=== PATIENT | male | born 1930 | race Caucasian/White ===

== ENCOUNTER 2016-12-02 21:07 | Inpatient (IN) ==
--- NOTE | 2016-12-02 21:23 | Emergency Department Note ---
Disposition Clinical Impression: HCAP (healthcare-associated pneumonia), Elevated troponin, THOMPSON (acute kidney injury), Hypoxia Leukocytosis Qualifiers: Leukocytosis type: unspecified Qualified Code(s): D72.829 - Elevated white blood cell count, unspecified Disposition: Admitted As Inpatient Condition: Fair Time of Disposition: 23:29 SOB HPI - General Chief Complaint: ED Shortness of Breath/Dyspnea Stated Complaint: cough/chf Time Seen by Provider: 12/02/16 21:09 Source: patient Mode of arrival: ambulatory Limitations: no limitations Nursing Notes Reviewed: Yes Vital Signs Reviewed: Yes - History of Present Illness Patient is an 86-year-old male with past medical history of CHF, CK-MB, diabetes , hyperlipidemia, hypertension. He presents today due to hypoxia, fever, rigors , recent weight gain. Patient's ability woke up this morning and has been short of breath ever since. He has noticed a mild increase in his abdominal girth but no increased swelling in his lower extremities. He has also noted some coughing today as well. He said that he started shaking uncontrollably this morning was noted to have a fever. Denies any nausea, vomiting, abdominal pain, diarrhea, chest pain. He does not wear any oxygen at long term but has been having to wear one to 2 L of nasal cannula oxygen to maintain saturation above 88-89. On presentation, patient was satting 88-89% on room air. - Related Data Home Medications Medication Instructions Recorded Confirmed Clobetasol Propionate 0.05% 1 appl TP BID 03/15/16 04/12/16 [Temovate] Furosemide [Lasix] 40 mg PO BID 03/15/16 04/12/16 Gabapentin [Neurontin] 100 mg PO TID 03/15/16 04/12/16 GlipiZIDE [Glucotrol] 2.5 mg PO BIDWM 03/15/16 04/12/16 Isosorbide MONOnitrate (24 HR) 30 mg PO DAILY 03/15/16 04/12/16 [Imdur] Lanolin/Mineral Oil [Eucerin 1 appl TP DAILY 03/15/16 04/12/16 Original Lotion] Levothyroxine [Synthroid] 25 mcg PO QAM 03/15/16 04/12/16 Lisinopril [Zestril] 40 mg PO DAILY 03/15/16 04/12/16 Minocycline HCl [Minocin] 100 mg PO BID 03/15/16 04/12/16 NIFEdipine [Nifedical Xl] 60 mg PO DAILY 03/15/16 04/12/16 Omeprazole [PriLOSEC] 20 mg PO BIDAC 03/15/16 04/12/16 PredniSONE 15 mg PO DAILY 03/15/16 04/12/16 Simvastatin [Zocor] 20 mg PO HS 03/15/16 04/12/16 Previous Rx's Medication Instructions Recorded Oxycodone HCl/Acetaminophen 1 each PO Q6HR PRN #28 tablet 03/18/16 [Percocet 10-325 mg Tablet] Acetaminophen [Tylenol] 650 mg PO Q6HR PRN #0 tablet 04/15/16 Atenolol [Tenormin] 50 mg PO HS #0 04/15/16 Ciprofloxacin [Cipro] 500 mg PO BID 14 Days 04/15/16 Tamsulosin [Flomax] 0.4 mg PO HS capsule 04/15/16 Allergies Allergy/AdvReac Type Severity Reaction Status Date / Time hydrochlorothiazide Allergy See Verified 04/12/16 11:33 Comments Constitutional: Reports: fever Eyes: Denies: eye pain ENT ED: Denies: ear pain Cardiovascular: Denies: chest pain, palpitations Respiratory: Reports: cough, dyspnea Gastrointestinal: Denies: abdominal pain, nausea, vomiting, diarrhea Genitourinary: Denies: urgency, dysuria Musculoskeletal: Denies: back pain Integumentary: Denies: rash Neurological: Denies: headache, weakness Past Medical History - Past Medical History Attestation: Yes The following information was validated with the patient. Medical history: Reports: CHF, coronary artery disease, diabetes, hyperlipidemia , hypertension, myocardial infarction, renal disease, thyroid disease, other Psychiatric history: Reports: no psych history - Social History Smoking Status: Former smoker Smokeless Tobacco Status: No Alcohol use: Reports: occasionally Drug use: Reports: none Physical Exam - General Limitations: no limitations General appearance: alert, in no apparent distress - Head Head exam: atraumatic, normocephalic, normal inspection - Eye Eye exam: Present: normal appearance, PERRL, EOMI - ENT ENT exam: normal exam, normal oropharynx, mucous membranes moist - Neck Neck exam: Present: normal inspection, full ROM, trachea midline - Chest Chest inspection: Present: normal inspection, symmetric chest wall rise - Respiratory Respiratory exam: Present: other (Decreased aeration and bilateral lower lobes. No major wheezes or crackles appreciated.) - Cardiovascular Cardiovascular exam: Present: regular rate, normal rhythm, normal heart sounds - Abdominal Exam Abdominal exam: Present: soft, Non-Tender, distention. Absent: tenderness, guarding, rebound, rigidity - Extremities Exam Extremities exam: Present: normal inspection, full ROM. Absent: tenderness, pedal edema - Back Exam Back exam: Present: normal inspection, full ROM. Absent: tenderness - Neurological Exam Neurological exam: Present: alert, oriented X3 - Psychiatric Psychiatric exam: Present: normal affect, normal mood - Skin Skin exam: Present: warm, dry, intact, normal color Course Course Narrative: Temp was 9.7 on presentation, oxygen saturation was 88-89% on room air. Currently satting 96% on 1-2 L of nasal cannula oxygen. Physical exam shows abdominal distention, decreased aeration and bilateral lower lobes. Otherwise no overt wheezes or crackles appreciated. No significant pedal edema present. We will obtain cardiac workup including EKG, chest x-ray, basic blood work. Due to fever, rigors, decreased aeration, and pneumonia is on the differential. Also CHF exacerbation is a possibility. 23:12 patient had leukocytosis, THOMPSON, elevated troponin at 0.11 and given aspirin 325 mg, chest x-ray was negative for pneumonia however patient has decreased aeration, cough and documented fever 101 from outside facility. Clinically has pneumonia. Patient oxygen saturation continues to drop to 88% when taken off nasal cannula oxygen. Will admit for clinical pneumonia, a KI, elevated troponin, hypoxia. We will start IV antibiotics for HCAP here and plan to admit. Vital Signs Temperature 99.7 F H 12/02/16 21:16 Pulse Rate 78 12/02/16 21:16 Respiratory Rate 18 12/02/16 21:16 Blood Pressure 128/61 12/02/16 21:16 O2 Sat by Pulse Oximetry 93 L 12/02/16 21:16 Temperature 99.7 F H 12/02/16 21:16 Pulse Rate 80 12/02/16 22:31 Respiratory Rate 18 12/02/16 22:31 Blood Pressure 143/60 12/02/16 22:31 O2 Sat by Pulse Oximetry 97 12/02/16 22:31 Oxygen Delivery Oxygen Delivery Nasal Cannula Shortness of Breath/Dyspnea - [facility] Narrative Medical decision making narrative: Temp was 9.7 on presentation, oxygen saturation was 88-89% on room air. Currently satting 96% on 1-2 L of nasal cannula oxygen. Physical exam shows abdominal distention, decreased aeration and bilateral lower lobes. Otherwise no overt wheezes or crackles appreciated. No significant pedal edema present. We will obtain cardiac workup including EKG, chest x-ray, basic blood work. Due to fever, rigors, decreased aeration, and pneumonia is on the differential. Also CHF exacerbation is a possibility. 23:12 patient had leukocytosis, THOMPSON, elevated troponin at 0.11 and given aspirin 325 mg, chest x-ray was negative for pneumonia however patient has decreased aeration, cough and documented fever 101 from outside facility. Clinically has pneumonia. Patient oxygen saturation continues to drop to 88% when taken off nasal cannula oxygen. Will admit for clinical pneumonia, a KI, elevated troponin, hypoxia. We will start IV antibiotics for HCAP here and plan to admit. - Medical Records Medical records reviewed: Yes I reviewed the patient's medical records. - Lab Data Lab results reviewed: Yes I reviewed the patient's lab results. Result diagrams: 12/02/16 21:31 12/02/16 21:31 Lab Results 12/02/16 12/02/16 12/02/16 Range/Units 21:31 21:31 21:31 WBC 16.8 H (4.3-11.1) K/mcL RBC 3.64 L (4.19-5.50) M/mcL Hgb 11.6 L (12.9-16.9) g/dL Hct 37.1 L (37.5-50.1) % MCV 101.9 H (83.0-100.0) fL MCH 31.9 (28.0-33.3) pg MCHC 31.3 L (31.6-35.5) g/dL RDW 13.3 (11.5-14.5) % Plt Count 185 (140-400) K/mcL MPV 10.1 (9.4-12.4) fL Immature Gran % 0.6 (0-4) % Seg Neutrophils % 89.2 % Lymphocytes % 4.3 % Monocytes % 5.5 % Eosinophils % 0.3 % Basophils % 0.1 % Neutrophils # 15.0 H (1.6-8.9) K/mcL Lymphocytes # 0.7 (0.6-4.6) K/mcL Monocytes # 0.9 (0.0-1.3) K/mcL Eosinophils # 0.1 (0.0-0.6) K/mcL Basophils # 0.0 (0.0-0.2) K/mcL Sodium 143 (136-145) mEq/L Potassium 4.1 (3.5-4.5) mEq/L Chloride 103 (98-109) mEq/L Carbon Dioxide 32 H (19-29) mEq/L BUN 38 H (8-26) mg/dL Creatinine 1.53 H (0.72-1.25) mg/dL Est GFR ( Amer) 52 L (> 60) Est GFR (Non-Af Amer) 43 L (> 60) BUN/Creatinine Ratio 25 (6-26) Glucose 89 (70-99) mg/dL Calculated Osmolality 305 H (280-300) Calcium 8.8 (8.6-10.8) mg/dL Troponin I 0.11 H* (0-0.03) ng/mL B-Natriuretic Peptide (0-100) pg/mL 12/02/16 Range/Units 21:31 WBC (4.3-11.1) K/mcL RBC (4.19-5.50) M/mcL Hgb (12.9-16.9) g/dL Hct (37.5-50.1) % MCV (83.0-100.0) fL MCH (28.0-33.3) pg MCHC (31.6-35.5) g/dL RDW (11.5-14.5) % Plt Count (140-400) K/mcL MPV (9.4-12.4) fL Immature Gran % (0-4) % Seg Neutrophils % % Lymphocytes % % Monocytes % % Eosinophils % % Basophils % % Neutrophils # (1.6-8.9) K/mcL Lymphocytes # (0.6-4.6) K/mcL Monocytes # (0.0-1.3) K/mcL Eosinophils # (0.0-0.6) K/mcL Basophils # (0.0-0.2) K/mcL Sodium (136-145) mEq/L Potassium (3.5-4.5) mEq/L Chloride (98-109) mEq/L Carbon Dioxide (19-29) mEq/L BUN (8-26) mg/dL Creatinine (0.72-1.25) mg/dL Est GFR ( Amer) (> 60) Est GFR (Non-Af Amer) (> 60) BUN/Creatinine Ratio (6-26) Glucose (70-99) mg/dL Calculated Osmolality (280-300) Calcium (8.6-10.8) mg/dL Troponin I (0-0.03) ng/mL B-Natriuretic Peptide 305 H (0-100) pg/mL - Radiology Data Radiology results reviewed: Yes I reviewed the patient's radiology results. Chest X-Ray 12/02/16 21:23 IMPRESSION: 1. Enlarged cardiac silhouette with mild prominence of the pulmonary vasculature. 2. Elevation of the left hemidiaphragm with bibasilar atelectasis. D/ / Shashank Wood MD / Shashank Wood MD Interpreting Provider: Shashank Wood MD - EKG Data EKG attestation: Yes I reviewed and interpreted this EKG. EKG results narrative: 12/02/2016 at 21:37. Normal sinus rhythm. Rate 76. ID interval 199. QRS 110. QTC 397. Left axis deviation. Q waves present in aVR, V1, V2 that are present on old EKG. Otherwise, no acute ST elevation or depression. No acute changes from his EKG on 04/12/2016 S.B.A.RThony - S.B.A.R. Situation: Demographics, MOA Background: Presenting Complaint, Relevant PMH, Meds, & Allergies Assessment: Vital Signs, Course and respsone to treatment, Exam Concerns, Patient/Family Expectation, Pertinant Lab Results, Outstanding Labs Recommendation: Barrier(s) to disposition, Recommendation based on pending studies, treatments, or consults S.B.ACourtney Report Given to: Dr. Luis E Harris Repor Time: 23:29 Attestation Statement - Attestation Attestation: I, Biju Hines MD, personally performed a history and physical exam of the patient and discussed their management with the resident. I reviewed the resident's note and agree with the documented findings, medical decision making , and plan of care. 86-year-old male presents to the emergency department from an assisted living facility for complaint of a frequent nonproductive cough today with some mild shortness of breath. No chest pain. This evening prior to arrival he had a rigor with shaking chills that lasted 15 or 20 minutes. He has not noticed any fever. He is not normally on oxygen but was placed on oxygen at the assisted living facility because his oxygen saturation was low. He does have a history of CHF. No increased swelling of his feet and ankles. On examination patient is a well-developed obese elderly male in no acute distress. He is alert and oriented 3. There is no cyanosis or diaphoresis. Chest is nontender to palpation. Breath sounds are clear and equal bilaterally with no rales or wheezes noted. Heart regular rate and rhythm. Abdomen soft and nontender with normal bowel sounds. 2+ pitting edema of the lower extremities bilaterally. No acute changes on EKG. Some cardiomegaly and pulmonary vascular congestion on chest x-ray but no acute infiltrate noted. Labs reviewed. Patient does have a leukocytosis with WBC of 16.8 with 89% segs. Troponin also noted to be elevated at 0.11. In light of patient's cough and fever and leukocytosis I think clinically the patient has pneumonia although nothing is showing up on his chest x-ray at this time. The hospitalist, Dr. Kimbrough, was consulted and accepted admission of the patient.
[2016-12-02 21:40] LABS: Basophils % 0.1 %; Eosinophils # 0.1 K/mcL (0.0-0.6); Eosinophils % 0.3 %; Hematocrit 37.1 % (37.5-50.1); Hemoglobin 11.6 g/dL (12.9-16.9); Immature Granulocytes % 0.6 % (0-4); Lymphocytes # 0.7 K/mcL (0.6-4.6); Lymphocytes % 4.3 %; Mean Corpuscular HGB Conc 31.3 g/dL (31.6-35.5); Mean Corpuscular Hemoglobin 31.9 pg (28.0-33.3); Mean Corpuscular Volume 101.9 fL (83.0-100.0); Mean Platelet Volume 10.1 fL (9.4-12.4); Monocytes # 0.9 K/mcL (0.0-1.3); Monocytes % 5.5 %; Platelet Count 185 K/mcL (140-400); Red Blood Count 3.64 M/mcL (4.19-5.50); Red Cell Distribution Width 13.3 % (11.5-14.5); Segmented Neutrophils % 89.2 %
[2016-12-02 21:53] LABS: Calcium 8.8 mg/dL (8.6-10.8); Potassium 4.1 mEq/L (3.5-4.5)
[2016-12-02] MEDS ORDERED: Aspirin 325 MG TABLET PO ONE (22:20)
[2016-12-02] MEDS ORDERED: Levofloxacin 750 MG/150 ML 750 MG/150 ML BAG IVPB ONE (23:15)
[2016-12-02] MEDS ORDERED: Piperacillin/Tazobactam 3.375 GM in D5% in Water (Mini-Bag+) 100 ML IVPB ONE (23:15)
[2016-12-02] MEDS ORDERED: Vancomycin 1,500 MG in D5% in Water 250 ML IVPB SCH (23:45)
[2016-12-03] MEDS ORDERED: Vancomycin 2,000 MG in D5% in Water 500 ML IVPB SCH (00:01)
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
[2016-12-03] MEDS ORDERED: Ondansetron ODT 4 MG TAB.RAPDIS SL PRN (02:14)
[2016-12-03] MEDS ORDERED: D5% in Water 1,000 ML IV PRN (02:14)
[2016-12-03] MEDS ORDERED: *HR* Dextrose 50 % in Water (Syg) 50 ML SYRINGE IVP PRN (02:14)
[2016-12-03] MEDS ORDERED: Acetaminophen 325 MG TABLET PO PRN (02:14)
[2016-12-03] MEDS ORDERED: Naloxone 0.4 MG/ML INJ IVP PRN (02:14)
[2016-12-03] MEDS ORDERED: Dextrose Gel 15 GM PO PRN ×2 (02:14)
[2016-12-03 05:59] LABS: Basophils % 0.1 %; Eosinophils # 0.1 K/mcL (0.0-0.6); Eosinophils % 0.3 %; Hemoglobin 10.9 g/dL (12.9-16.9); Immature Granulocytes % 0.7 % (0-4); Lymphocytes # 0.9 K/mcL (0.6-4.6); Lymphocytes % 5.4 %; Mean Corpuscular HGB Conc 31.1 g/dL (31.6-35.5); Mean Corpuscular Hemoglobin 31.9 pg (28.0-33.3); Mean Corpuscular Volume 102.3 fL (83.0-100.0); Mean Platelet Volume 10.4 fL (9.4-12.4); Monocytes # 0.9 K/mcL (0.0-1.3); Monocytes % 5.4 %; Neutrophils # 14.5 K/mcL (1.6-8.9); Platelet Count 184 K/mcL (140-400); Red Blood Count 3.42 M/mcL (4.19-5.50); Red Cell Distribution Width 13.3 % (11.5-14.5); Segmented Neutrophils % 88.1 %
[2016-12-03 06:03] LABS: Albumin 2.3 g/dL (3.5-5.0); Albumin/Globulin Ratio 0.7 (1.1-2.2); Bilirubin,Total 0.5 mg/dL (0.2-1.2); Calcium 8.1 mg/dL (8.6-10.8); Globulin 3.4 g/dL (2.4-3.5); Phosphorous 4.1 mg/dL (2.3-4.7); Potassium 4.6 mEq/L (3.5-4.5); Total Protein 5.7 g/dL (6.0-8.3)
[2016-12-03] MEDS: *HR* Heparin 5,000 UNIT/ML VIAL SQ SCH ×3 (06:29→21:00)
[2016-12-03] MEDS: *HR* OxyCODONE ER (12 HR) 10 MG TABLET PO SCH ×2 (06:30→17:54)
[2016-12-03 06:52] LABS: Platelet Estimate Normal (Normal)
[2016-12-03] MEDS: Insulin LISPRO 300 UNITS/3 ML VIAL SQ SCH ×3 (07:31→17:51)
[2016-12-03 08:45] LABS: Bilirubin,Urine Negative (Negative); Blood,Urine Negative (Negative); Clarity,Urine Clear (Clear); Color,Urine Yellow (Yellow); Glucose,Urine (UA) Normal (Normal); Ketones,Urine Negative (Negative); Leukocyte Esterase,Urine Small (Negative); Nitrite,Urine Negative (Negative); Protein,Urine Trace mg/dL (Neg-Trace); Specific Gravity,Urine 1.021 (1.010-1.025); Urobilinogen,Urine Normal (Normal)
[2016-12-03 08:47] LABS: Bacteria,Urine None Seen per hpf (None-Few); Hyaline Casts,Urine None Seen per lpf (None-Few); RBC,Urine 0-3 per hpf (0-3); Squamous Epithelial Cell,Urine Many per lpf (None-Few)
[2016-12-03] MEDS: Aspirin Enteric Coated 81 MG Tablet PO SCH (08:59)
[2016-12-03] MEDS: Hydrocortisone Sodium Succ 100 MG/2 ML VIAL IVP SCH ×3 (08:59→23:24)
[2016-12-03] MEDS ORDERED: Levofloxacin 750 MG/150 ML 750 MG/150 ML BAG IVPB SCH (09:00)
[2016-12-03] MEDS: Isosorbide MONOnitrate (24 HR) 30 MG TAB.ER.24H PO SCH (12:26)
[2016-12-03] MEDS: Gabapentin 100 MG CAPSULE PO SCH ×3 (12:26→21:00)
--- NOTE | 2016-12-03 16:31 | Internal Med Progress Note ---
<[place] Card - Last Filed: 12/03/16 16:19> Date of Encounter: 12/03/16 Time of Encounter: 09:30 - Assessment and plan (1) Pneumonia Current Visit: Yes Status: Acute Assessment and plan: Mr. Baldwin 86-year-old male from nursing facility admitted with cough, yellow sputum production and hypoxia requiring nasal cannula oxygen. Currently in stable condition. Plan: -Continue Levaquin daily - Continue albuterol inhaler when necessary - Patient on chronic steroids at home provide Solu-Cortef 100 mg IV every 8 hours - Omeprazole 20 mg by mouth daily Qualifiers: Pneumonia type: due to unspecified organism Laterality: unspecified laterality Lung location: unspecified part of lung Qualified Code(s): J18.9 - Pneumonia, unspecified organism (2) Non-insulin dependent type 2 diabetes mellitus Current Visit: No Status: Chronic Assessment and plan: Type II diabetic [place] is controlled. Suspect elevation in glucose level after high-dose steroids provided. Plan: -Medium dose insulin sliding scale. - ACHS glucose checks (3) Aortic stenosis Current Visit: Yes Status: Suspected Assessment and plan: History of aortic stenosis. Echocardiogram from April 2016 demonstrates LVEF of 60%, normal left ventricular chamber size and wall thickness and function. Mild left ventricular diastolic dysfunction. Mild right ventricular structure and function. Mild mitral annular calcification. Mild thickened mitral valve leaflets. Trace mitral regurgitation. No mitral stenosis. Tricuspid valve normal valve structure, tricuspid valve regurgitation. Borderline pulmonary hypertension. Aortic valve was poorly visualized demonstrate non-coronary cusp appearance moderately calcified Patient is on 60 mg Lasix by mouth twice a day at home. Plan: -Lasix 20 mg IV twice a day. Qualifiers: Cardiac valve disease etiology: nonrheumatic Qualified Code(s): I35.0 - Nonrheumatic aortic (valve) stenosis (4) Pemphigus Current Visit: No Status: Chronic Assessment and plan: Patient usually on 20 mg prednisone daily, he has been on this for years due to his pemphigus, recently started on 40 mg daily for about 2 weeks. - On Solu-Cortef 100 mg every 8 hours (5) Troponin level elevated Current Visit: No Status: Acute Assessment and plan: Slight elevation in troponins, patient is asymptomatic, no significant correlation with EKG. Likely secondary to hypoxia superimposed on diastolic heart failure. Plan: -Continue monitoring patient symptoms. (6) THOMPSON (acute kidney injury) Current Visit: Yes Status: Acute Assessment and plan: Acute kidney injury with admitting creatinine 1.53. Baseline appears to be roughly 1.10. Patient is clinically fluid overloaded, will reduce diuresis to decrease strain on kidneys. Plan: - Start low-dose Lasix 20 mg IV twice a day - Renally dose antibiotics and avoid nephrotoxic medications - Monitor renal function with a.m. labs. (7) DVT prophylaxis Current Visit: No Status: Acute Assessment and plan: Subcutaneous heparin 5000 units every 8 hours. - Subjective Interval history: Mr. Baldwin is seen of the patient bedside this morning. He said that he feels fine and denies any other concerns at this time. He said that he was transferred to [facility] because the nurse was concerned about him. He does admit to yellow sputum production with cough. He denies any fevers, chills, sweating, shortness of breath. He has no further concerns. - Constitutional Vitals: Temp Pulse Resp BP Pulse Ox 98.5 F 67 15 132/62 100 12/03/16 15:49 12/03/16 15:49 12/03/16 15:49 12/03/16 15:49 12/03/16 15:49 General appearance: Present: cooperative, mild distress, A&O X 3, pleasant - Head Head exam: Present: atraumatic, normocephalic - Eye Eye exam: Present: PERRL, conjuntiva pink, sclera anicteric Pupils: Present: PERRL - Neck Neck exam general surgery: Present: supple, trachea midline. Absent: lymphadenopathy - Respiratory Respiratory exam: Present: rhonchi (Rhonchi appreciated in the lower left lung base. Clear to auscultation and morgan.). Absent: accessory muscle use, rales , wheezes - Cardiovascular Cardiovascular exam: Present: RRR, +S1, +S2. Absent: diastolic murmur, gallop, rubs, systolic murmur - GI/Abdominal GI/Abdominal exam: Present: normal bowel sounds, soft, no peritoneal signs. Absent: distended, tenderness - Extremities Exam Extremities exam: Present: pedal edema (2+ pitting edema bilateral lower extremities more so on the right), warm, radial pulses palpable and symetrical. Absent: calf tenderness, cyanotic - Neurological Exam Neurological exam: Present: alert, CN II-XII intact, oriented X3, no focal deficits. Absent: pronater drift, facial droop, speech deficit Internal Medicine: Result - Labs CBC & Chem 7: 12/03/16 05:25 12/03/16 05:25 Labs: Urine 12/03/16 Range/Units 08:05 Urine Color Yellow (Yellow) Urine Clarity Clear (Clear) Urine pH 6.0 (5.0-8.0) pH Units Ur Specific [place] 1.021 (1.010-1.025) Urine Protein Trace (Neg-Trace) mg/dL Urine Glucose (UA) Normal (Normal) mg/dL - VTE Documentation of Mechanical Device: Graduated compression elastic hosiery Consult Discharge Plan - Plan [facility]errals: [facility] [Primary Care Provider] - <Ganesh Headley - Last Filed: 12/03/16 18:57> - Constitutional Vitals: Temp Pulse Resp BP Pulse Ox 98.5 F 67 15 132/62 100 12/03/16 15:49 12/03/16 15:49 12/03/16 15:49 12/03/16 15:49 12/03/16 15:49 Internal Medicine: Result - Labs CBC & Chem 7: 12/03/16 05:25 12/03/16 05:25 Labs: Urine 12/03/16 Range/Units 08:05 Urine Color Yellow (Yellow) Urine Clarity Clear (Clear) Urine pH 6.0 (5.0-8.0) pH Units Ur Specific [place] 1.021 (1.010-1.025) Urine Protein Trace (Neg-Trace) mg/dL Urine Glucose (UA) Normal (Normal) mg/dL - Attending Attestation Pt admitted earlier this morning for acute exac CHF (presumed). He is beginning to feel somewhat better. Exam Alert. Comfortable Heart reg Plan As above. Continue admission plan.
--- NOTE | 2016-12-03 16:40 | Electrocardiograph Report ---
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
[2016-12-03] MEDS: Furosemide 20 MG/2 ML VIAL IVP SCH (17:53)
--- NOTE | 2016-12-03 18:01 | ECHO - Doppler Report ---
Limited Echocardiogram Name: Daniel Baldwin Date of Study: 12/03/2016 Date: 1930 Ht: Medical Record#: [id number] Age: 86 Wt: Gender: Male BSA: Order #: [id number] Location: [facility] Room #: 2A36 Reading Physician: Jaime Rodriguez DO, FACC, FASE, FASNC Air Plant Engineer: Radha Palacios RDCS Ordering Physician: Enrique Kimbrough MD Primary Physician: [facility] Indications: Aortic stenosis Impressions: Aortic valve not well visualized. Grossly, it appears calcified. Doppler evaluation performed and no significant gradients obtained. However, the image quality is very poor. The study is largely non-diagnostic regarding possible presence of aortic stenosis. Consider ASHOK to further evaluate AV if clinically indicated. History 05/13/2016 a Previous Echo was performed. Measurements: BP: 132/ 62 2D Normal Values LVOT Diam: 1.90 cm LA volume: LVOT Peak Geo:1.10 m/sec Mean Geo:.78 m/sec Peak Grad:5.00 mmHg Mean Grad:3.00 mmHg Aortic Valve Peak Geo:1.28 m/sec Mean Geo:.92 m/sec Peak Grad:7.00 mmHg Mean Grad:4.00 mmHg Valve Area:2.55 cm2 Updated by Jaime Rodriguez DO, FACC, FASE, FASNC on 12/03/2016 5:53:55 PM electronically signed on 12/03/2016 5:55:47 PM with status of Final
[2016-12-03] MEDS ORDERED: Furosemide 20 MG/2 ML VIAL IVP SCH (21:00)
[2016-12-03] MEDS ORDERED: Insulin LISPRO 300 UNITS/3 ML VIAL SQ SCH (21:00)
[2016-12-04] MEDS: *HR* OxyCODONE ER (12 HR) 10 MG TABLET PO SCH (05:52)
[2016-12-04] MEDS: *HR* Heparin 5,000 UNIT/ML VIAL SQ SCH (05:52)
[2016-12-04 07:26] LABS: Basophils % 0.1 %; Eosinophils % 0.2 %; Hematocrit 34.2 % (37.5-50.1); Hemoglobin 10.9 g/dL (12.9-16.9); Lymphocytes # 0.6 K/mcL (0.6-4.6); Lymphocytes % 4.7 %; Mean Corpuscular HGB Conc 31.9 g/dL (31.6-35.5); Mean Corpuscular Hemoglobin 32.6 pg (28.0-33.3); Mean Corpuscular Volume 102.4 fL (83.0-100.0); Mean Platelet Volume 10.4 fL (9.4-12.4); Monocytes # 0.5 K/mcL (0.0-1.3); Monocytes % 4.2 %; Neutrophils # 11.2 K/mcL (1.6-8.9); Platelet Count 170 K/mcL (140-400); Red Blood Count 3.34 M/mcL (4.19-5.50); Red Cell Distribution Width 12.9 % (11.5-14.5); Segmented Neutrophils % 89.8 %
[2016-12-04 07:37] LABS: BUN/Creatinine Ratio 25 (6-26); Blood Urea Nitrogen 34 mg/dL (8-26); Calcium 8.8 mg/dL (8.6-10.8); Carbon Dioxide 30 mEq/L (19-29); Chloride 103 mEq/L (98-109); Glucose 136 mg/dL (70-99); Osmolality,Calculated 302 (280-300); Potassium 4.4 mEq/L (3.5-4.5); Sodium 141 mEq/L (136-145); eGFR For African Americans > 60 (> 60); eGFR For Non-African Americans 50 (> 60)
[2016-12-04] MEDS: Insulin LISPRO 300 UNITS/3 ML VIAL SQ SCH ×2 (08:40→11:57)
[2016-12-04] MEDS: Gabapentin 100 MG CAPSULE PO SCH (08:41)
[2016-12-04] MEDS: Hydrocortisone Sodium Succ 100 MG/2 ML VIAL IVP SCH (08:41)
[2016-12-04] MEDS: Furosemide 20 MG/2 ML VIAL IVP SCH (08:41)
[2016-12-04] MEDS: Isosorbide MONOnitrate (24 HR) 30 MG TAB.ER.24H PO SCH (08:41)
[2016-12-04] MEDS: Aspirin Enteric Coated 81 MG Tablet PO SCH (08:41)
--- NOTE | 2016-12-04 09:13 | Discharge Summary ---
<[place] Card - Last Filed: 12/04/16 09:26> Date of Encounter: 12/04/16 Time of Encounter: 09:08 - Discharge Diagnosis (1) Pneumonia Priority: Primary Status: Acute Qualifiers: Pneumonia type: due to unspecified organism Laterality: unspecified laterality Lung location: unspecified part of lung Qualified Code(s): J18.9 - Pneumonia, unspecified organism (2) Non-insulin dependent type 2 diabetes mellitus Priority: Secondary Status: Chronic (3) Aortic stenosis Priority: Secondary Status: Suspected Qualifiers: Cardiac valve disease etiology: nonrheumatic Qualified Code(s): I35.0 - Nonrheumatic aortic (valve) stenosis (4) Pemphigus Priority: Secondary Status: Chronic (5) Troponin level elevated Priority: Secondary Status: Acute (6) THOMPSON (acute kidney injury) Priority: Primary Status: Acute (7) DVT prophylaxis Priority: Secondary Status: Acute - Discharge Medications Prescriptions: Levofloxacin [Levaquin] 750 mg PO Q48H #3 tablet PredniSONE 40 mg PO DAILY #6 tablet Home Medications: Gabapentin [Neurontin] 100 mg PO TID 03/15/16 [History] GlipiZIDE [Glucotrol] 2.5 mg PO BIDWM 03/15/16 [History] Isosorbide MONOnitrate (24 HR) [Imdur] 30 mg PO DAILY 03/15/16 [History] Levothyroxine [Synthroid] 50 mcg PO QAM 03/15/16 [History] Lisinopril [Zestril] 20 mg PO DAILY 03/15/16 [History] Omeprazole [PriLOSEC] 20 mg PO BIDAC 03/15/16 [History] Simvastatin [Zocor] 20 mg PO HS 03/15/16 [History] Atenolol [Tenormin] 50 mg PO HS #0 04/15/16 [Rx] Tamsulosin [Flomax] 0.4 mg PO HS capsule 04/15/16 [Rx] Acetaminophen [Tylenol] 975 mg PO TID PRN 12/03/16 [History] Ferrous Gluconate 324 mg PO DAILY 12/03/16 [History] Magnesium Oxide [Magnesium] 400 mg PO DAILY 12/03/16 [History] Multivitamin [Multivitamins] 1 tab PO DAILY 12/03/16 [History] OxyCODONE ER (12 HR) [OxyCONTIN] 10 mg PO Q12HR 12/03/16 [History] Polyethylene Glycol 3350 [Smoothlax] 17 gm PO BID PRN 12/03/16 [History] Furosemide [Lasix] 40 mg PO BIDWM #0 12/04/16 [Rx] Levofloxacin [Levaquin] 750 mg PO Q48H #3 tablet 12/04/16 [Rx] PredniSONE 20 mg PO DAILY #0 12/04/16 [Rx] PredniSONE 40 mg PO DAILY #6 tablet 12/04/16 [Rx] Allergies/Adverse Reactions: Allergies hydrochlorothiazide Allergy (Verified 04/12/16 11:33) See Comments Date of admission: 12/03/16 06:34 [facility]: [facility] Consults: 12/03/16 11:09 Consult to Physical Therapy [CONS] Routine Comment: Evaluate, develop and implement POC OT [Consult to Occupational Therapy] [CONS] Routine Comment: Evaluate, develop and implement POC Discharging clinician: [place] Card Anticipated date of discharge: 12/04/16 - Patient Status Disposition: Transfer SNF Condition: Fair Overall status at discharge: patient is progressing back to baseline - Discharge Instructions Instructions: Chronic Hypertension (DC), Pneumonia (DC) Follow Up With: [facility] [Primary Care Provider] - Additional Instructions: I recommended follow-up with her primary care physician in 3 to 5 days Take medications as prescribed - Diet and Activity Activity: increase activity as tolerated Diet: diabetic diet, low salt diet Interval History: Mr. Baldwin is a 86 year old male with medical history significant for CHF (last echo 05/04 showed EF 60% and mild diastolic dysfunction), pemphigus, non-insulin dependent diabetes, htn, and hld who reports having increased shortness of breath and cough for several days and shakes prior to admission to [facility]. He was admitted to the general medical floor and placed on telemetry, chest x-ray was negative for signs pneumonia but clinically pneumonia was present. He also is found to have slightly elevated troponins between 0.11 and 0.14 likely secondary to hypoxia, patient was without chest pain, radiation of discomforts. He was treated with monotherapy Levaquin and UA blood cultures and influenza swab were obtained which were all negative. Patient has known aortic stenosis with last echocardiogram May 04 show potential moderate aortic stenosis and is concerned this may be contributing to his acute kidney injury in the setting of diuresis. Limited echo completed inpatient at poor quality and only demonstrated calcification of aortic valves. Follow-up outpatient is recommended. During inpatient stay Mr. Baldwin demonstrated clinical improvement with reduced oxygen requirements, resolution of colored sputum production and shortness of breath. During his inpatient stay he was started on Solu-Cortef 100 mg every 8 hours and at the time of discharge he was started on by mouth prednisone 40 mg daily for 3 days with recommendations to resume home dose after. Levaquin is dosed every 48 hour with renal function. Patient will require completion of by mouth Levaquin 750 mg every 48 hours for 3 doses post discharge. Adjustments to his home dose Lasix reducing diuresis from 60 mg by mouth daily to 40 mg by mouth daily with a repeat BMP 3 days post discharge. On 12/04/2016 Mr. Baldwin had been seen and evaluated patient bedside, but chart medical records demonstrate improvement in his laboratory values and vital signs. He was deemed stable for discharge back to his previous living facility and antibiotics and medication dose changes were discussed with the patient. Inpatient vitals, discharge(hospital average): Temp 98.4(98.0-100.0), heart rate 73 (64-83), respirations 16 (14-20), BP 127 /68 (104/73- 177/76), O2 sat 95% room air Home Medication change: Reduce Lasix from 60 mg PO BID to 40mg PO BID Hospital course: Mr. Baldwin is a 86 year old male - Time Spent with Patient Total time spent providing and/or coordinating discharge services: - Constitutional Vitals: Temp Pulse Resp BP Pulse Ox 98.4 F 73 16 127/68 99 12/04/16 08:52 12/04/16 08:52 12/04/16 08:52 12/04/16 08:52 12/04/16 08:52 General appearance: Present: cooperative, mild distress, A&O X 3, pleasant - Head Head exam: Present: atraumatic, normocephalic - Eye Eye exam: Present: PERRL, conjuntiva pink, sclera anicteric Pupils: Present: PERRL - ENT ENT exam: Present: mucous membranes moist - Neck Neck exam general surgery: Present: supple, trachea midline. Absent: lymphadenopathy - Respiratory Respiratory exam: Present: CTAB. Absent: accessory muscle use, rales, rhonchi, wheezes - Cardiovascular Cardiovascular exam: Present: RRR, +S1, +S2, systolic murmur (Grade 3/6 systolic ejection murmur). Absent: diastolic murmur, gallop, rubs - GI/Abdominal GI/Abdominal exam: Present: normal bowel sounds, soft, no peritoneal signs. Absent: distended, tenderness - Extremities Exam Extremities exam: Present: pedal edema, warm, radial pulses palpable and symetrical. Absent: calf tenderness, cyanotic - Neurological Exam Neurological exam: Present: alert, CN II-XII intact, oriented X3, no focal deficits. Absent: pronater drift, facial droop, speech deficit - Psychiatric Psychiatric exam: Present: normal affect, normal mood - VTE Documentation of Mechanical Device: Graduated compression elastic hosiery <Ganesh Headley - Last Filed: 12/04/16 16:03> - Discharge Diagnosis (1) Pneumonia due to aerobic bacteria Priority: Primary Status: Acute Comments: Complete abx. (2) Pneumonia Status: Acute Qualifiers: Pneumonia type: due to unspecified organism Laterality: unspecified laterality Lung location: unspecified part of lung Qualified Code(s): J18.9 - Pneumonia, unspecified organism (3) Aortic stenosis Status: Suspected Qualifiers: Cardiac valve disease etiology: nonrheumatic Qualified Code(s): I35.0 - Nonrheumatic aortic (valve) stenosis (4) Non-insulin dependent type 2 diabetes mellitus Status: Chronic (5) HTN (hypertension) Priority: Secondary Status: Chronic Qualifiers: Hypertension type: essential hypertension Qualified Code(s): I10 - Essential (primary) hypertension (6) Hypothyroidism Priority: Secondary Status: Chronic Qualifiers: Hypothyroidism type: acquired Qualified Code(s): E03.9 - Hypothyroidism, unspecified (7) Elevated troponin Priority: Secondary Status: Acute (8) Pemphigus Status: Chronic Date of admission: 12/03/16 06:34 [facility] care physician: [facility] Consults: 12/03/16 11:09 Consult to Physical Therapy [CONS] Routine Comment: Evaluate, develop and implement POC OT [Consult to Occupational Therapy] [CONS] Routine Comment: Evaluate, develop and implement POC Hospital course: Mr. Baldwin is a 86 year old male - Time Spent with Patient Total time spent providing and/or coordinating discharge services: 27min - Constitutional Vitals: Temp Pulse Resp BP Pulse Ox 98.2 F 61 16 119/66 95 12/04/16 11:18 12/04/16 11:18 12/04/16 11:18 12/04/16 11:18 12/04/16 11:18 - Attending Attestation I examined this patient and my medical decision-making was reviewed with the Resident Physician on 12/04/16. I agree with the documented findings, disposition and treatment plan as described except to the extent set forth below. Mr. Baldwin feels better. He was up in room. His breathing is doing better and he feels ready to go home. He is abfebrile with stable vitals. Exam Alert. Comfortable Heart reg Lungs diminished Plan D/C today Follow up as outpatient.
--- NOTE | 2016-12-04 09:25 | Physician Discharge Referral ---
<[place] Card - Last Filed: 12/04/16 09:25> [facility] Referral Info Transfer To: Return to [place] Provider in Charge after Transfer: PCP Institutional Level of Care: Skilled - Diagnosis (1) Pneumonia Status: Acute (2) Non-insulin dependent type 2 diabetes mellitus Status: Chronic (3) Aortic stenosis Status: Suspected (4) Pemphigus Status: Chronic (5) Troponin level elevated Status: Acute (6) THOMPSON (acute kidney injury) Status: Acute (7) DVT prophylaxis Status: Acute - Transfer Medications Prescriptions: Levofloxacin [Levaquin] 750 mg PO Q48H #3 tablet PredniSONE 40 mg PO DAILY #6 tablet Home Medications: Gabapentin [Neurontin] 100 mg PO TID 03/15/16 [History] GlipiZIDE [Glucotrol] 2.5 mg PO BIDWM 03/15/16 [History] Isosorbide MONOnitrate (24 HR) [Imdur] 30 mg PO DAILY 03/15/16 [History] Levothyroxine [Synthroid] 50 mcg PO QAM 03/15/16 [History] Lisinopril [Zestril] 20 mg PO DAILY 03/15/16 [History] Omeprazole [PriLOSEC] 20 mg PO BIDAC 03/15/16 [History] Simvastatin [Zocor] 20 mg PO HS 03/15/16 [History] Atenolol [Tenormin] 50 mg PO HS #0 04/15/16 [Rx] Tamsulosin [Flomax] 0.4 mg PO HS capsule 04/15/16 [Rx] Acetaminophen [Tylenol] 975 mg PO TID PRN 12/03/16 [History] Ferrous Gluconate 324 mg PO DAILY 12/03/16 [History] Magnesium Oxide [Magnesium] 400 mg PO DAILY 12/03/16 [History] Multivitamin [Multivitamins] 1 tab PO DAILY 12/03/16 [History] OxyCODONE ER (12 HR) [OxyCONTIN] 10 mg PO Q12HR 12/03/16 [History] Polyethylene Glycol 3350 [Smoothlax] 17 gm PO BID PRN 12/03/16 [History] Furosemide [Lasix] 40 mg PO BIDWM #0 12/04/16 [Rx] Levofloxacin [Levaquin] 750 mg PO Q48H #3 tablet 12/04/16 [Rx] PredniSONE 20 mg PO DAILY #0 12/04/16 [Rx] PredniSONE 40 mg PO DAILY #6 tablet 12/04/16 [Rx] Allergies/Adverse Reactions: Allergies hydrochlorothiazide Allergy (Verified 04/12/16 11:33) See Comments - Respiratory Orders Smoking Cessation: Smoking cessation has been advised. For more information, call the [place] [employer] Quit Line at 4-756-OPYS-NOW. - Ancillary Orders May use pressure relief devices daily prn, May consult with Dentist, Director Of Religious Life, Health Professor PRN - Advance Directives Living Will: No Power of Media Account Executive: No Code Status: DNR-Arrest - Mobility Orders Ambulate - Rehabiliation Orders Rehab Potential: Good Rehab Orders: Evaluation for Physical Therapy, Evaluation for Occupational Therapy - Treatments Skin tear care topically daily PRN per policy, Fleet enema rectally every other day PRN cleansing purposes - Diet Orders No Added Salt (DONY) CERTIFICATION: I certify that the transfer of the above named patient to an Extended Care Facility is necessary for the continuing treatment of the diagnosis listed. The above information is true and accurate reflection of patient's current condition. Confidential - Redisclosure prohibited without a patient's written consent. <Ganesh Headley - Last Filed: 12/04/16 16:04> - Diagnosis (1) Pneumonia due to aerobic bacteria Status: Acute (2) Pneumonia Status: Acute (3) Aortic stenosis Status: Suspected (4) Non-insulin dependent type 2 diabetes mellitus Status: Chronic (5) HTN (hypertension) Status: Chronic (6) Hypothyroidism Status: Chronic (7) Elevated troponin Status: Acute (8) Pemphigus Status: Chronic - Respiratory Orders Smoking Cessation: Smoking cessation has been advised. For more information, call the [employer] Quit Line at 1-501-JEZS-NOW. CERTIFICATION: I certify that the transfer of the above named patient to an Extended Care Facility is necessary for the continuing treatment of the diagnosis listed. The above information is true and accurate reflection of patient's current condition. Confidential - Redisclosure prohibited without a patient's written consent.
[2016-12-04 11:20] VITALS: BP 119/66
[2016-12-04] MEDS ORDERED: Aminoglycoside Consult 1 EACH MC ONE (14:17)
[2016-12-05] MEDS ORDERED: Levofloxacin 750 MG/150 ML 750 MG/150 ML BAG IVPB SCH (09:00)
== END 2016-12-04 14:18 | DRG 178 ==
LOC: EMEROO 21:07 → 2ANU 21:07
PROVIDERS: ADMIT Pediatrics; ATTEND Internal Medicine

== ENCOUNTER 2016-12-20 21:29 | Inpatient (IN) ==
[2016-12-20] MEDS ORDERED: Levofloxacin 750 MG/150 ML 750 MG/150 ML BAG IVPB ONE (21:47)
[2016-12-20] MEDS ORDERED: Piperacillin/Tazobactam 3.375 GM in D5% in Water (Mini-Bag+) 100 ML IVPB ONE (21:47)
[2016-12-20] MEDS ORDERED: Vancomycin 2,000 MG in D5% in Water 250 ML IVPB ONE (21:47)
--- NOTE | 2016-12-20 21:55 | Emergency Department Note ---
Disposition Clinical Impression: Acute on chronic renal failure Sepsis Qualifiers: Sepsis type: sepsis due to unspecified organism Qualified Code(s): A41.9 - Sepsis, unspecified organism CHF exacerbation Qualifiers: Congestive heart failure type: systolic Qualified Code(s): I50.23 - Acute on chronic systolic (congestive) heart failure Disposition: Admitted As Inpatient Condition: Serious Referrals: NO,PCP [Non-Partnered Physician] - Forms: ED Satisfaction Letter Time of Disposition: 23:40 SOB HPI - General Chief Complaint: ED Shortness of Breath/Dyspnea Stated Complaint: SOB Time Seen by Provider: 12/20/16 21:32 Source: patient, EMS Limitations: age Nursing Notes Reviewed: Yes Vital Signs Reviewed: Yes - History of Present Illness Patient's 86-year-old male with past medical history significant for COPD, CHF, ID, CAD, H LD, hypertension, renal disease, diabetes mellitus, thyroid disease was discharged from the hospital on December 04 secondary to pneumonia presents today with shortness of breath gradual onset this evening that started 2 hours ago. Patient reports no LOC - Related Data Home Medications Medication Instructions Recorded Confirmed Gabapentin [Neurontin] 100 mg PO TID 03/15/16 12/03/16 GlipiZIDE [Glucotrol] 2.5 mg PO BIDWM 03/15/16 12/03/16 Isosorbide MONOnitrate (24 HR) 30 mg PO DAILY 03/15/16 12/03/16 [Imdur] Omeprazole [PriLOSEC] 20 mg PO BIDAC 03/15/16 12/03/16 Simvastatin [Zocor] 20 mg PO HS 03/15/16 12/03/16 Acetaminophen [Tylenol] 975 mg PO TID PRN 12/03/16 12/03/16 Ferrous Gluconate 324 mg PO DAILY 12/03/16 12/03/16 Magnesium Oxide [Magnesium] 400 mg PO DAILY 12/03/16 12/03/16 Multivitamin [Multivitamins] 1 tab PO DAILY 12/03/16 12/03/16 Polyethylene Glycol 3350 17 gm PO BID PRN 12/03/16 12/03/16 [Smoothlax] Atenolol [Tenormin] 50 mg PO DAILY 12/20/16 12/20/16 Furosemide [Lasix] 20 mg PO QPM 12/20/16 12/20/16 Furosemide [Lasix] 60 mg PO QAM 12/20/16 12/20/16 Levothyroxine [Synthroid] 50 mcg PO 0630 12/20/16 12/20/16 Lisinopril [Zestril] 20 mg PO DAILY 12/20/16 12/20/16 NIFEdipine XL (24 HR) [Procardia 60 mg PO DAILY 12/20/16 12/20/16 XL] PredniSONE 20 mg PO DAILY 12/20/16 12/20/16 Previous Rx's Medication Instructions Recorded Tamsulosin [Flomax] 0.4 mg PO HS capsule 04/15/16 Allergies Allergy/AdvReac Type Severity Reaction Status Date / Time hydrochlorothiazide Allergy See Verified 12/20/16 21:33 Comments All systems ED: reviewed and negative except as stated. Constitutional: Reports: weakness. Denies: fever, chills ENT ED: Reports: congestion Cardiovascular: Reports: edema. Denies: chest pain, palpitations, syncope Respiratory: Reports: dyspnea. Denies: cough Gastrointestinal: Denies: abdominal pain, nausea, vomiting Genitourinary: Denies: urgency, dysuria Musculoskeletal: Denies: back pain, neck pain Neurological: Denies: headache Psychiatric: Denies: anxiety Endocrine: Reports: fatigue Hematological/Lymphatic: Reports: easy bruising Past Medical History - Past Medical History Attestation: Yes The following information was validated with the patient. Source: patient Medical history: Reports: CHF, coronary artery disease, diabetes, hyperlipidemia , hypertension, myocardial infarction, renal disease, thyroid disease, other Surgical history: Reports: no surgical history Psychiatric history: Reports: no psych history - Social History Smoking Status: Former smoker Smokeless Tobacco Status: No Alcohol use: Reports: occasionally Drug use: Reports: none Physical Exam - General Limitations: age General appearance: alert - Head Head exam: atraumatic, normocephalic, normal inspection - Eye Eye exam: Present: normal appearance, PERRL, EOMI. Absent: scleral icterus - ENT ENT exam: normal exam, normal oropharynx, mucous membranes dry - Neck Neck exam: Present: normal inspection, full ROM, trachea midline. Absent: tenderness - Chest Chest inspection: Present: normal inspection, symmetric chest wall rise. Absent : tenderness - Respiratory Respiratory exam: Present: prolonged expiratory phase, other (Diminished lung morgan bilaterally, with tachypnea) - Cardiovascular Cardiovascular exam: Present: tachycardia - Abdominal Exam Abdominal exam: Present: soft, Non-Tender. Absent: tenderness, rigidity - Extremities Exam Extremities exam: Present: pedal edema (Significant pedal edema right lower extremity worse than left) - Neurological Exam Neurological exam: Present: alert, oriented X3 - Skin Skin exam: Present: other (Skin is hot to touch, patient has numerous ecchymotic areas on his body) Course - Reevaluation(s) Reevaluation #1: Patient presents with shortness of breath dyspnea and recent history of admission for pneumonia concerning for respiratory distress secondary to possible pneumonia and sepsis, CHF exacerbation, ACS and ID, PE Plan: Full sepsis workup with appropriate labs and imaging studies chest x-ray. EKG and peripheral blood cultures. Start antibiotic therapy secondary to a fever of 102.7, tachycardia at 123, tachypnea, Time: 22:05 Reevaluation #2: Patient states he is feeling somewhat better. Patient's daughters in the room with him right now who states that the nursing facility where he lives there is a lot of residents that are sick. Flu swab ordered Time: 22:43 Reevaluation #3: Patient's labs showed elevated white count of 13.9, chronically elevated BUN and creatinine, elevated troponin of 0.10, EKG not show signs of ischemia. BMP negative. Patient's elevation in troponin was likely due to demand ischemia secondary to patient's lung issues couple with history of CHF and kidney disease. Patient is febrile at 102.7 has been given Tylenol rectally. Patient' s are none IV antibiotics and IV therapy for sepsis. Patient does not have a clear source of infection but has recent sick contacts at his skilled nursing facility. Patient also recently discharge pneumonia. Flu swab negative. Recommend admission Given patient's comorbidities and current condition. Dr. Ojeda as accepted patient for admission Time: 23:40 Vital Signs Temperature 102.7 F H 12/20/16 21:33 Pulse Rate 123 12/20/16 21:33 Respiratory Rate 24 12/20/16 21:33 Blood Pressure 174/91 12/20/16 21:33 O2 Sat by Pulse Oximetry 94 12/20/16 21:33 Temperature 102.7 F H 12/20/16 21:33 Pulse Rate 123 12/20/16 21:33 Respiratory Rate 24 12/20/16 21:33 Blood Pressure 174/91 12/20/16 21:33 O2 Sat by Pulse Oximetry 94 12/20/16 21:33 Oxygen Delivery Oxygen Delivery Room Air Shortness of Breath/Dyspnea - Medical Records Medical records reviewed: Yes I reviewed the patient's medical records. - Lab Data Lab results reviewed: Yes I reviewed the patient's lab results. Lab results narrative: Short CBC 12/20/16 Range/Units 22:04 WBC 13.9 H (4.3-11.1) K/mcL Hgb 12.5 L (12.9-16.9) g/dL Hct 39.9 (37.5-50.1) % Plt Count 205 (140-400) K/mcL Neutrophils # 12.8 H (1.6-8.9) K/mcL BMP 12/20/16 Range/Units 22:04 Sodium 142 (136-145) mEq/L Potassium 4.3 (3.5-4.5) mEq/L Chloride 100 (98-109) mEq/L Carbon Dioxide 31 H (19-29) mEq/L BUN 37 H (8-26) mg/dL Creatinine 1.67 H (0.72-1.25) mg/dL Glucose 86 (70-99) mg/dL Calcium 9.6 (8.6-10.8) mg/dL Cardiac Enzymes 12/20/16 Range/Units 22:04 Troponin I 0.10 H* (0-0.03) ng/mL Urine 12/20/16 Range/Units 21:58 Urine Color Yellow (Yellow) Urine Clarity Clear (Clear) Urine pH 7.0 (5.0-8.0) pH Units Ur Specific [place] 1.009 L (1.010-1.025) Urine Protein Negative (Neg-Trace) mg/dL Urine Glucose (UA) Normal (Normal) mg/dL - Radiology Data Radiology results reviewed: Yes I reviewed the patient's radiology results. Chest X-Ray 12/20/16 21:32 IMPRESSION: 1. Persistent enlargement of the cardiac silhouette. 2. Otherwise, no evidence of acute cardiopulmonary abnormality. 3. Elevation of the left hemidiaphragm with minimal left basilar atelectasis. D/ / Shashank Wood MD / Shashank Wood MD Interpreting Provider: Shashank Wood MD - EKG Data EKG attestation: Yes I reviewed and interpreted this EKG. EKG results narrative: EKG taken 12/20/2016 at 2152 hrs. shows a sinus tachycardia at a rate of [address] elevations or depressions in leads no previous EKG for comparison
[2016-12-20 22:14] LABS: Basophils % 0.1 %; Eosinophils % 0.1 %; Hematocrit 39.9 % (37.5-50.1); Hemoglobin 12.5 g/dL (12.9-16.9); Immature Granulocytes % 0.6 % (0-4); Lymphocytes # 0.4 K/mcL (0.6-4.6); Lymphocytes % 2.7 %; Mean Corpuscular HGB Conc 31.3 g/dL (31.6-35.5); Mean Corpuscular Hemoglobin 31.5 pg (28.0-33.3); Mean Corpuscular Volume 100.5 fL (83.0-100.0); Mean Platelet Volume 9.9 fL (9.4-12.4); Monocytes # 0.7 K/mcL (0.0-1.3); Neutrophils # 12.8 K/mcL (1.6-8.9); Platelet Count 205 K/mcL (140-400); Red Blood Count 3.97 M/mcL (4.19-5.50); Segmented Neutrophils % 91.5 %
[2016-12-20] MEDS: 0.9 % Sodium Chloride 1,000 ML IVC SCH ×2 (22:14→23:32)
[2016-12-20 22:19] LABS: Prothrombin Time 11.1 Seconds (9.4-12.1)
[2016-12-20 22:21] LABS: Activated Partial Thrombo Time 23.9 Seconds (26.0-36.0)
[2016-12-20 22:25] LABS: Magnesium 1.9 mg/dL (1.6-2.6); Phosphorous 2.8 mg/dL (2.3-4.7)
[2016-12-20 22:26] LABS: Calcium 9.6 mg/dL (8.6-10.8); Potassium 4.3 mEq/L (3.5-4.5)
[2016-12-20] MEDS ORDERED: Aspirin 81 MG TAB.CHEW PO ONE (22:41)
[2016-12-20 23:26] LABS: Bilirubin,Urine Negative (Negative); Blood,Urine Negative (Negative); Clarity,Urine Clear (Clear); Color,Urine Yellow (Yellow); Glucose,Urine (UA) Normal (Normal); Ketones,Urine Negative (Negative); Leukocyte Esterase,Urine Negative (Negative); Nitrite,Urine Negative (Negative); Protein,Urine Negative (Neg-Trace); Specific Gravity,Urine 1.009 (1.010-1.025); Urobilinogen,Urine Normal (Normal)
--- NOTE | 2016-12-20 23:49 | Emergency Department Note ---
START Narrative - START START: I, Marcin Miranda, examined this patient and my medical decision-making was reviewed with the SHOT DROPPER/PA/Advanced Practice Nurse/Resident Physician. I agree with the documented findings, disposition and treatment plan as described except to the extent set forth below. 86-year-old male brought in by EMS for fever and difficulty in breathing. Patient was recently admitted for pneumonia within the past 2 weeks. Patient states he recently returned home to a group home facility. Patient states his difficulty in breathing feels similar to his previous pneumonia. Patient had a fever of 102.7 on initial evaluation. Patient was tachycardic to 120s. Patient was given Tylenol rectally and IV fluids which improved his heart rate significantly. Chest x-ray does not reveal a significant pneumonia however secondary to patient's symptoms I will be treating as sepsis due to possible pneumonia. Flu swab pending at time of admission. Hospitalist accepted the patient for further care and evaluation.
[2016-12-21] MEDS ORDERED: *HR* Morphine 2 MG/ML SYRINGE IVP PRN ×2 (01:14→12:45)
[2016-12-21] MEDS ORDERED: *HR* OxyCODONE Immed Rel 5 MG TABLET PO PRN (01:14)
[2016-12-21] MEDS ORDERED: Ondansetron 4 MG/2 ML VIAL IVP PRN (01:14)
[2016-12-21] MEDS ORDERED: Naloxone 0.4 MG/ML INJ IVP PRN (01:14)
[2016-12-21] MEDS ORDERED: Acetaminophen 325 MG TABLET PO PRN (01:14)
[2016-12-21] MEDS ORDERED: Vancomycin 2,000 MG in D5% in Water 250 ML IVPB SCH (02:00)
--- NOTE | 2016-12-21 02:01 | Internal Med History&Physical ---
Date of Encounter: 12/21/16 Time of Encounter: 01:00 Assessment and Plan (1) Acute respiratory failure with hypoxia Current visit: Yes Status: Acute . (2) SIRS due to infectious process with acute organ dysfunction Current visit: Yes Status: Acute . (3) Non-ST elevation myocardial infarction (NSTEMI) due to mismatch of myocardial oxygen supply and demand Current visit: Yes Status: Acute . (4) Ischemia due to increased oxygen demand Current visit: Yes Status: Acute . 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 (6) HCAP (healthcare-associated pneumonia) Current visit: Yes Status: Acute . (7) Elevated troponin Current visit: Yes Status: Acute . (8) Aortic stenosis Current visit: Yes Status: Chronic . 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 Qualifiers: Sepsis type: sepsis due to unspecified organism Qualified Code(s): A41.9 - Sepsis, unspecified organism (10) Acute on chronic renal failure Current visit: Yes Status: Acute . Internal Medicine - H&P: HPI Chief complaint: Difficulty breathing Admitted From: Emergency Dept Plans for Post Hospital Care: Home History of present illness: Mr. 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 Patient is admitted to [facility] the emergency department when he presents via EMS services from intermediate with complaints of difficulty with breathing. The patient was recently discharged from the [facility] on December 04 following an inpatient stay in management of healthcare associated pneumonia. He completed his outpatient course of therapy but continued to be slowly and completely recovered to his baseline. Within hours of his presentation to the ED he began to experience increasing shortness of breath associated to cough intermittently productive chest congestion generalized weakness occasional audible wheeze. Shortness of air was exacerbated by increased activity or recumbency. He denied hemoptysis. Denied chest pain, abdominal pain, flank pain. Denied dysuria or frequency hematuria. Knowledge to easy fatigability and malaise. Denies any perceived irregular heartbeat syncopal or presyncopal complaints. Did acknowledge some peripheral edema. Findings in the ED: Temperature 102.7 pulse 123 respirations 24 BP 174/91. O2 saturation 94% on room air. WBC 13.9 hemoglobin 12.5 platelets 205,000. There was increase in neutrophils. Metabolic panel normal except a BUN of 37 creatinine 1.67. Carbon dioxide 31. Troponin 0.10. Urinalysis negative. Portable chest x-ray showed persistent enlargement of cardiac silhouette. Otherwise no evidence of acute or active cardiopulmonary abnormality. Elevation of left hemidiaphragm with minimal left basilar atelectasis noted. EKG demonstrated sinus tachycardia at a rate of 119 bpm. No acute ischemic changes seen. Preliminary impression suggested acute on chronic hypoxic respiratory failure in the setting of persisting COPD exacerbation/bronchitis-bronchiolitis/healthcare associated infection. Cardiac radiograph does not clearly defined a localized infiltrate consistent with pneumonia. Further assessment is warranted to clearly define source for recurrent febrile illness. Patient's daughter relative history and reported that in the intermediate facility where the patient lives in long-term care assignment multiple residents are sick with respiratory problems. This increases the potential for sick contacts. The patient is current in his influenza and pneumococcal vaccinations per report. Systemic inflammatory response syndrome criteria and sepsis criteria present at the time of admission. Acute end organ injuries suggested by THOMPSON/CKD, hypoxia, demand ischemia with troponin elevation, delirium. The patient is at risk for further acute decline and morbidity. Workup and treatment progress comprehensively. The patient was visited and interviewed and examined. Patient's daughter provided validating history at the time of admission via the emergency department. Cumulative laboratory and radiographic data base will be considered and discussed. Pertinent ancillary medical records including ECW and PCI documentation when available was reviewed and considered. Given the patient's presenting concerns, past medical history, clinical findings and symptoms, he is admitted at this time will undergo further evaluation and disposition. Orders were written as per Computerized physician service order dispatcher chief system.......................................................................... .................... Consultative opinions will be sought as clinical circumstances justify. Pain management needs will be addressed. Laboratory /radiographic data base will be updated as appropriate. Studies include: Cultures blood urine and sputum, Legionella and streptococcal pneumoniae urine antigens, coags, UA, cardiac injury panel, BNP, metabolic and hematologic panel, magnesium, phosphorus, ionized calcium, thyroid panel, lipid profile, A1c, C-peptide, CRP, sedimentation rate, respiratory infection profile , respiratory virus panel, blood gas, lactic acid, serologies, etc. Precautions: Aspiration, fall, delirium protocol/surveillance initiated. Telemetry with continuous hemodynamic monitoring and pulse oximetry initiated. Orthostatic vital signs. Empiric antibiotic coverage: Intravenous vancomycin, Zosyn and Levaquin pending culture data. Special studies: CT chest, chest x-ray, telemetry, EKG, 2d echo. Pulmonary toilet: Incentive spirometry, aerosol bronchodilator, mucolytic, antitussive, supplemental oxygen. Corticosteroid therapy. CPAP/BiPAP supplemental oxygen delivery. Aerosol Mucomyst therapy. Fluid and electrolyte repletion efforts will proceed. Careful attention to fluid balance and renal recovery will be emphasized. Avoidance of nephrotoxic exposure and adverse drug drug interaction in the setting of impaired renal function will be monitored closely. Acute coronary syndrome protocol/surveillance initiated. Acute heart failure protocol/surveillance initiated. DVT and PUD prophylaxis initiated: PPI therapy, intermittent pneumatic cuffs. Subcutaneous heparin. Early ambulation will be encouraged. Immunization updates recommended. Influenza and pneumococcal vaccinations as part of ongoing preventative healthcare recommendations strongly recommended. Smoking cessation counseling briefly addressed. Patient is a nonsmoker. Advanced care directive discussion addressed. Patient does declare healthcare restrictions as per record at this time. Cardiovascular risk appraisal and cardiovascular risk reduction efforts will be emphasized. Physical /occupational therapy consulted to evaluate patient's functional capacity and progressive mobility as circumstances justify. Sliding scale insulin coverage, ADA dietary restraint and schedule an as-needed basis fingerstick glucose assessments were initiated. Nutrition/diabetes education counseling may be considered as circumstances justify. Outpatient medication schedules will be reviewed, confirmed and facilitated as appropriate. Reconciliation of home treatments including adjustments, substitutions and reintroduction into the treatment regimen will address necessary maintenance therapies for chronic pre-existing medical conditions. Plan of care has been reviewed and discussed in detail with the patient. Questions addressed. Hospital course dictated by clinical findings, treatment response and potential consultative interventions. Patient is a risk for further acute clinical decline due to advanced age/frailty , chief complaints and comorbidities in setting of evolving multiorgan derangements. Condition is serious. Prognosis is guarded. CODE STATUS is DNR comfort care arrest. 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 Peripheral neuropathy. Pemphigus w/ chronic steroid therapy. BPH/prostatism.) Psychiatric history: no psych history, other - Past Surgical History Surgical History: other - Social History Smoking Status: Former smoker Smokeless Tobacco Status: No Alcohol use: occasionally Drug use: none Occupational status: retired Current living situation: [facility] Activity Level: Uses cane/walker, Mostly sedentary Recent Out of Country Travel Within the Last 8 Weeks: No Exposure or Possible Exposure to Illness During Travel: No - Family History Mother Family Member Ethnicity: Non- Living Status: Hx Family Cardiac Disorders: No Hx Family Respiratory Disorders: No Hx Family Cancer: No Hx Family GI Disorders: No Hx Family Endocrine Disorder: Yes (DM2) Hx Family Neuromuscular Disorders: No Hx Family Neurologic Disorders: No Hx Family HEENT Disorders: No Hx Family Autoimmune Disorders: No Father History Unknown: Yes Internal Medicine - H&P: Meds Gabapentin [Neurontin] 100 mg PO TID 03/15/16 [History] GlipiZIDE [Glucotrol] 2.5 mg PO BIDWM 03/15/16 [History] Isosorbide MONOnitrate (24 HR) [Imdur] 30 mg PO DAILY 03/15/16 [History] Omeprazole [PriLOSEC] 20 mg PO BIDAC 03/15/16 [History] Simvastatin [Zocor] 20 mg PO HS 03/15/16 [History] Tamsulosin [Flomax] 0.4 mg PO HS capsule 04/15/16 [Rx] Acetaminophen [Tylenol] 975 mg PO TID PRN 12/03/16 [History] Ferrous Gluconate 324 mg PO DAILY 12/03/16 [History] Magnesium Oxide [Magnesium] 400 mg PO DAILY 12/03/16 [History] Multivitamin [Multivitamins] 1 tab PO DAILY 12/03/16 [History] Polyethylene Glycol 3350 [Smoothlax] 17 gm PO QAM 12/03/16 [History] Atenolol [Tenormin] 50 mg PO DAILY 12/20/16 [History] Furosemide [Lasix] 20 mg PO QPM 12/20/16 [History] Furosemide [Lasix] 60 mg PO QAM 12/20/16 [History] Levothyroxine [Synthroid] 50 mcg PO 0630 12/20/16 [History] Lisinopril [Zestril] 20 mg PO DAILY 12/20/16 [History] NIFEdipine XL (24 HR) [Procardia XL] 60 mg PO DAILY 12/20/16 [History] PredniSONE 20 mg PO DAILY 12/20/16 [History] Allergies hydrochlorothiazide Allergy (Verified 12/20/16 21:33) See Comments All Systems PM: A 10-system review of systems was performed and is negative for pertinent findings except as documented above in the HPI. Allergies Allergy/AdvReac Type Severity Reaction Status Date / Time hydrochlorothiazide Allergy See Verified 12/20/16 21:33 Comments Patient Problems (Last Updated 12/21/16 @ 02:03 by Ziggy Sutton MD) Skin abrasion (Acute Medical) T14.8 Fibula fracture (Acute Medical) S82.409A Non-insulin dependent type 2 diabetes mellitus (Chronic Medical) E11.9 HTN (hypertension) (Chronic Medical) I10 HLD (hyperlipidemia) (Chronic Medical) E78.5 DVT prophylaxis (Acute Medical) [id number] Hypothyroidism (Chronic Medical) E03.9 Pemphigus (Chronic Medical) L10.9 CKD (chronic kidney disease) stage 3, GFR 30-59 ml/min (Acute Medical) N18.3 Syncope and collapse (Acute Medical) R55 Acute hyponatremia (Acute Medical) E87.1 Troponin level elevated (Acute Medical) R79.89 Syncope (Acute Medical) R55 Complicated UTI (urinary tract infection) (Acute Medical) N39.0 HCAP (healthcare-associated pneumonia) (Acute Medical) J18.9 Elevated troponin (Acute Medical) R74.8 THOMPSON (acute kidney injury) (Acute Medical) N17.9 Leukocytosis (Acute Medical) D72.829 Hypoxia (Acute Medical) R09.02 Pneumonia (Acute Medical) J18.9 Aortic stenosis (Chronic Medical) I35.0 Pneumonia due to aerobic bacteria (Acute Medical) J15.8 Sepsis (Acute Medical) A41.9 CHF exacerbation (Acute Medical) I50.9 Acute on chronic renal failure (Acute Medical) N17.9, N18.9 Acute respiratory failure with hypoxia (Acute Medical) J96.01 Ischemia due to increased oxygen demand (Acute Medical) I24.8 Non-ST elevation myocardial infarction (NSTEMI) due to mismatch of myocardial oxygen supply and demand (Acute Medical) I21.4 SIRS due to infectious process with acute organ dysfunction (Acute Medical) A41.9, R65.20 Frail elderly (Chronic Medical) R54 - Constitutional Constitutional: as per HPI, fatigue, malaise, no chills, no fever(s), no night sweats - EENT Eyes: as per HPI, no change in vision, no discharge, no pain, no photophobia Ears: as per HPI, no ear discharge, no ear pain, no tinnitus Nose, mouth and throat: as per HPI, no dysphagia, no nasal discharge, no neck pain, no sore throat - Cardiovascular Cardiovascular ROS IM: as per HPI, dyspnea, dyspnea on exertion, edema, no chest pain, no diaphoresis, no lightheadedness, no palpitations, no syncope - Respiratory Respiratory: as per HPI, cough, dyspnea, dyspnea on exertion, wheezing, chest congestion, no excessive phlegm production - Gastrointestinal Gastrointestinal: as per HPI, no abdominal pain, no diarrhea, no hematemesis, no hematochezia, no melena, no nausea, no vomiting - Genitourinary Genitourinary ROS male: as per HPI - Musculoskeletal Musculoskeletal ROS IM: as per HPI, no numbness, no tingling - Integumentary Integumentary IM: as per HPI, other, no rash, no unusual bruising - Neurological Neurological ROS: as per HPI, weakness, other, no confusion, no convulsions, no focal weakness, no numbness, no tingling, no tremor(s) - Psychiatric Psychiatric: as per HPI - Endocrine Endocrine IM: as per HPI - Hematologic/Lymphatic Hematologic/Lymphatic: as per HPI, easy bruising, other - Allergic/Immunologic Allergic/Immunologic: as per HPI - Constitutional Vitals: Temp Pulse Resp BP Pulse Ox 99.3 F 83 18 100/51 97 12/21/16 00:05 12/21/16 01:15 12/21/16 01:15 12/21/16 01:15 12/21/16 01:15 Vital Signs Temp Pulse Resp BP Pulse Ox 12/21/16 01:15 83 18 100/51 97 12/21/16 00:05 99.3 F 92 18 118/55 100 12/20/16 23:00 99 135/65 12/20/16 21:33 102.7 F H 123 24 174/91 94 Intake and Output 12/20/16 12/20/16 12/21/16 15:59 23:59 07:59 Intake Total 1000 / 1000 1000 / 1000 Balance 1000 / 1000 1000 / 1000 Intake: IV Fluids 1000 / 1000 1000 / 1000 0.9 % Sodium Chloride 1, 1000 / 1000 1000 / 1000 000 ML @ 3750 mls/hr IVC .Q16M [facility] Rx#:[id number] Other: Weight 230 kg General appearance: Present: mild distress, A&O X 3, obese - Head Head exam: Present: atraumatic, normocephalic - Eye Eye exam: Present: EOMI, PERRL, conjuntiva pink, sclera anicteric Pupils: Present: normal accommodation, PERRL - ENT ENT exam: Present: mucous membranes moist, normal oropharynx - Neck Neck exam general surgery: Present: supple, trachea midline. Absent: lymphadenopathy - Respiratory Respiratory exam: Present: decreased breath sounds, prolonged expiratory phase, rhonchi, wheezes, tachypnea. Absent: accessory muscle use, CTAB, rales, stridor - Cardiovascular Cardiovascular exam: Present: distant heart sounds, RRR, +S1, +S2, tachycardia. Absent: diastolic murmur, gallop, rubs, systolic murmur - GI/Abdominal GI/Abdominal exam: Present: normal bowel sounds, soft, no peritoneal signs. Absent: distended, tenderness - Extremities Exam Extremities exam: Present: pedal edema, warm, radial pulses palpable and symetrical. Absent: calf tenderness, cyanotic - Neurological Exam Neurological exam: Present: alert, altered, CN II-XII intact, oriented X3, no focal deficits. Absent: pronater drift, facial droop, speech deficit - Psychiatric Psychiatric exam: Present: normal affect, normal mood - Skin Skin exam: Present: dry, intact, warm Internal Med - H&P Results - Labs CBC & Chem 7: 12/21/16 04:01 12/21/16 04:01 Labs: Short CBC 12/20/16 Range/Units 22:04 WBC 13.9 H (4.3-11.1) K/mcL Hgb 12.5 L (12.9-16.9) g/dL Hct 39.9 (37.5-50.1) % Plt Count 205 (140-400) K/mcL Neutrophils # 12.8 H (1.6-8.9) K/mcL BMP 12/20/16 Range/Units 22:04 Sodium 142 (136-145) mEq/L Potassium 4.3 (3.5-4.5) mEq/L Chloride 100 (98-109) mEq/L Carbon Dioxide 31 H (19-29) mEq/L BUN 37 H (8-26) mg/dL Creatinine 1.67 H (0.72-1.25) mg/dL Glucose 86 (70-99) mg/dL Calcium 9.6 (8.6-10.8) mg/dL Cardiac Enzymes 12/20/16 Range/Units 22:04 Troponin I 0.10 H* (0-0.03) ng/mL Urine 12/20/16 Range/Units 21:58 Urine Color Yellow (Yellow) Urine Clarity Clear (Clear) Urine pH 7.0 (5.0-8.0) pH Units Ur Specific [place] 1.009 L (1.010-1.025) Urine Protein Negative (Neg-Trace) mg/dL Urine Glucose (UA) Normal (Normal) mg/dL Abnormal lab results WBC 13.9 K/mcL (4.3-11.1) H 12/20/16 22:04 RBC 3.97 M/mcL (4.19-5.50) L 12/20/16 22:04 Hgb 12.5 g/dL (12.9-16.9) L 12/20/16 22:04 MCV 100.5 fL (83.0-100.0) H 12/20/16 22:04 MCHC 31.3 g/dL (31.6-35.5) L 12/20/16 22:04 Neutrophils # 12.8 K/mcL (1.6-8.9) H 12/20/16 22:04 Lymphocytes # 0.4 K/mcL (0.6-4.6) L 12/20/16 22:04 APTT 23.9 Seconds (26.0-36.0) L 12/20/16 22:04 Carbon Dioxide 31 mEq/L (19-29) H 12/20/16 22:04 BUN 37 mg/dL (8-26) H 12/20/16 22:04 Creatinine 1.67 mg/dL (0.72-1.25) H 12/20/16 22:04 Est GFR ( Amer) 47 (> 60) L 12/20/16 22:04 Est GFR (Non-Af Amer) 39 (> 60) L 12/20/16 22:04 Calculated Osmolality 302 (280-300) H 12/20/16 22:04 Troponin I 0.10 ng/mL (0-0.03) H* 12/20/16 22:04 B-Natriuretic Peptide 262 pg/mL (0-100) H 12/20/16 22:04 Ur Specific Aurora 1.009 (1.010-1.025) L 12/20/16 21:58 Laboratory Last Values WBC 13.9 K/mcL (4.3-11.1) H 12/20/16 22:04 RBC 3.97 M/mcL (4.19-5.50) L 12/20/16 22:04 Hgb 12.5 g/dL (12.9-16.9) L 12/20/16 22:04 Hct 39.9 % (37.5-50.1) 12/20/16 22:04 MCV 100.5 fL (83.0-100.0) H 12/20/16 22:04 MCH 31.5 pg (28.0-33.3) 12/20/16 22:04 MCHC 31.3 g/dL (31.6-35.5) L 12/20/16 22:04 RDW 13.0 % (11.5-14.5) 12/20/16 22:04 Plt Count 205 K/mcL (140-400) 12/20/16 22:04 MPV 9.9 fL (9.4-12.4) 12/20/16 22:04 Immature Gran % 0.6 % (0-4) 12/20/16 22:04 Seg Neutrophils % 91.5 % 12/20/16 22:04 Lymphocytes % 2.7 % 12/20/16 22:04 Monocytes % 5.0 % 12/20/16 22:04 Eosinophils % 0.1 % 12/20/16 22:04 Basophils % 0.1 % 12/20/16 22:04 Neutrophils # 12.8 K/mcL (1.6-8.9) H 12/20/16 22:04 Lymphocytes # 0.4 K/mcL (0.6-4.6) L 12/20/16 22:04 Monocytes # 0.7 K/mcL (0.0-1.3) 12/20/16 22:04 Eosinophils # 0.0 K/mcL (0.0-0.6) 12/20/16 22:04 Basophils # 0.0 K/mcL (0.0-0.2) 12/20/16 22:04 PT 11.1 Seconds (9.4-12.1) 12/20/16 22:04 INR 1.0 12/20/16 22:04 APTT 23.9 Seconds (26.0-36.0) L 12/20/16 22:04 Sodium 142 mEq/L (136-145) 12/20/16 22:04 Potassium 4.3 mEq/L (3.5-4.5) 12/20/16 22:04 Chloride 100 mEq/L (98-109) 12/20/16 22:04 Carbon Dioxide 31 mEq/L (19-29) H 12/20/16 22:04 BUN 37 mg/dL (8-26) H 12/20/16 22:04 Creatinine 1.67 mg/dL (0.72-1.25) H 12/20/16 22:04 Est GFR ( Amer) 47 (> 60) L 12/20/16 22:04 Est GFR (Non-Af Amer) 39 (> 60) L 12/20/16 22:04 BUN/Creatinine Ratio 22 (6-26) 12/20/16 22:04 Glucose 86 mg/dL (70-99) 12/20/16 22:04 Calculated Osmolality 302 (280-300) H 12/20/16 22:04 Lactic Acid 1.8 mmol/L (0.5-2.2) 12/20/16 22:04 Calcium 9.6 mg/dL (8.6-10.8) 12/20/16 22:04 Phosphorus 2.8 mg/dL (2.3-4.7) 12/20/16 22:04 Magnesium 1.9 mg/dL (1.6-2.6) 12/20/16 22:04 Troponin I 0.10 ng/mL (0-0.03) H* 12/20/16 22:04 B-Natriuretic Peptide 262 pg/mL (0-100) H 12/20/16 22:04 Urine Color Yellow (Yellow) 12/20/16 21:58 Urine Clarity Clear (Clear) 12/20/16 21:58 Urine pH 7.0 pH Units (5.0-8.0) 12/20/16 21:58 Ur Specific [place] 1.009 (1.010-1.025) L 12/20/16 21:58 Urine Protein Negative mg/dL (Neg-Trace) 12/20/16 21:58 Urine Glucose (UA) Normal mg/dL (Normal) 12/20/16 21:58 Urine Ketones Negative mg/dL (Negative) 12/20/16 21:58 Urine Blood Negative (Negative) 12/20/16 21:58 Urine Nitrite Negative (Negative) 12/20/16 21:58 Urine Bilirubin Negative (Negative) 12/20/16 21:58 Urine Urobilinogen Normal mg/dL (Normal) 12/20/16 21:58 Ur Leukocyte Esterase Negative (Negative) 12/20/16 21:58 Ur Culture Indicated? NO (NO) 12/20/16 21:58 - Impressions Chest X-Ray 12/20/16 21:32 IMPRESSION: 1. Persistent enlargement of the cardiac silhouette. 2. Otherwise, no evidence of acute cardiopulmonary abnormality. 3. Elevation of the left hemidiaphragm with minimal left basilar atelectasis. D/ / Shashank Wood MD / Shashank Wood MD Interpreting Provider: Shashank Wood MD - Attending Attestation Allergies hydrochlorothiazide Allergy (Verified 12/20/16 21:33) See Comments Home Medications Medication Instructions Recorded Confirmed Type Gabapentin [Neurontin] 100 mg PO TID 03/15/16 12/20/16 History GlipiZIDE [Glucotrol] 2.5 mg PO BIDWM 03/15/16 12/20/16 History Isosorbide MONOnitrate (24 HR) 30 mg PO DAILY 03/15/16 12/20/16 History [Imdur] Omeprazole [PriLOSEC] 20 mg PO BIDAC 03/15/16 12/20/16 History Simvastatin [Zocor] 20 mg PO HS 03/15/16 12/20/16 History Acetaminophen [Tylenol] 975 mg PO TID PRN 12/03/16 12/20/16 History Ferrous Gluconate 324 mg PO DAILY 12/03/16 12/20/16 History Magnesium Oxide [Magnesium] 400 mg PO DAILY 12/03/16 12/20/16 History Multivitamin [Multivitamins] 1 tab PO DAILY 12/03/16 12/20/16 History Polyethylene Glycol 3350 17 gm PO QAM 12/03/16 12/20/16 History [Smoothlax] Atenolol [Tenormin] 50 mg PO DAILY 12/20/16 12/20/16 History Furosemide [Lasix] 20 mg PO QPM 12/20/16 12/20/16 History Furosemide [Lasix] 60 mg PO QAM 12/20/16 12/20/16 History Levothyroxine [Synthroid] 50 mcg PO 0630 12/20/16 12/20/16 History Lisinopril [Zestril] 20 mg PO DAILY 12/20/16 12/20/16 History NIFEdipine XL (24 HR) [Procardia 60 mg PO DAILY 12/20/16 12/20/16 History XL] PredniSONE 20 mg PO DAILY 12/20/16 12/20/16 History I & O 12/18/16 12/19/16 12/20/16 12/21/16 23:59 23:59 23:59 23:59 Intake Total 1000 / 1000 1000 / 1000 Balance 1000 / 1000 1000 / 1000 Weight 230 kg Intake: IV Fluids 1000 / 1000 1000 / 1000 0.9 % Sodium Chloride 1, 1000 / 1000 1000 / 1000 000 ML @ 3750 mls/hr IVC .Q16M [facility] Rx#:[id number] Medications Acetaminophen (Tylenol) 650 mg PO Q6HR PRN PRN Reason: Mild Pain (1-3) Stop: 06/22/17 01:15 Atenolol (Tenormin) 50 mg PO DAILY [facility] Stop: 06/22/17 09:01 Docusate Sodium (Colace) 100 mg PO BID PRN PRN Reason: Constipation Stop: 06/22/17 01:15 Furosemide (Lasix) 20 mg PO QPM [facility] Stop: 06/22/17 18:01 Furosemide (Lasix) 60 mg PO QAM [facility] Stop: 06/22/17 09:01 Gabapentin (Neurontin) 100 mg PO TID [facility] Stop: 06/22/17 09:01 Heparin Sodium (Porcine) (Heparin) 5,000 unit SQ Q12HR [facility] Stop: 06/22/17 06:01 Levofloxacin/Dextrose (Levaquin 750mg/150 Ml) 750 mg in 150 mls @ 100 mls/hr IVPB DAILY [facility] PRN Reason: Protocol Stop: 06/22/17 09:01 Piperacillin Sod/Tazobactam (Sod 3.375 gm/ Dextrose) 100 mls @ 25 mls/hr IVPB Q8HR [facility] PRN Reason: Protocol Stop: 06/22/17 08:01 Vancomycin HCl 2,000 mg/ (Dextrose) 250 mls @ 167 mls/hr IVPB RPHPROT [facility] PRN Reason: Protocol Stop: 06/22/17 02:01 Isosorbide Mononitrate (Imdur) 30 mg PO DAILY [facility] Stop: 06/22/17 09:01 Levothyroxine Sodium (Synthroid) 50 mcg PO 0630 [facility] Stop: 06/22/17 06:31 Lisinopril (Zestril) 20 mg PO DAILY [facility] PRN Reason: Protocol Stop: 06/22/17 09:01 Magnesium Oxide (Mag-Ox) 400 mg PO DAILY [facility] PRN Reason: Protocol Stop: 06/22/17 09:01 Morphine Sulfate (Morphine Sulfate) 2 mg IVP Q4HR PRN PRN Reason: Severe Pain (7-10) Stop: 06/22/17 01:15 Naloxone HCl (Narcan) 0.4 mg IVP Q2MIN PRN PRN Reason: Opioid Reversal Stop: 06/22/17 01:15 Nifedipine (Procardia Xl) 60 mg PO DAILY [facility] PRN Reason: Protocol Stop: 06/22/17 09:01 Omeprazole (Prilosec) 20 mg PO DAILY@0630 [facility] PRN Reason: Protocol Stop: 06/22/17 06:31 Omeprazole (Prilosec) 20 mg PO BIDAC [facility] PRN Reason: Protocol Stop: 06/22/17 07:31 Ondansetron HCl (Zofran) 4 mg IVP Q8HR PRN PRN Reason: Nausea And Vomiting Stop: 06/22/17 01:15 Oxycodone HCl (Roxicodone) 5 mg PO Q6HR PRN PRN Reason: Moderate Pain (4-6) Stop: 06/22/17 01:15 Polyethylene Glycol (Miralax) 17 gm PO QAM [facility] Stop: 06/22/17 09:01 Prednisone (Prednisone) 20 mg PO DAILY [facility] Stop: 06/22/17 09:01 Simvastatin (Zocor) 20 mg PO HS [facility] PRN Reason: Protocol Stop: 06/22/17 21:01 Tamsulosin HCl (Flomax) 0.4 mg PO HS [facility] PRN Reason: Protocol Stop: 06/22/17 21:01 Discontinued Medications Acetaminophen (Tylenol) 1,000 mg PO ONCE ONE Stop: 12/20/16 21:50 Last Admin: 12/20/16 22:13 Dose: 1,000 mg Aspirin (Aspirin) 324 mg PO ONCE ONE Stop: 12/20/16 22:42 Last Admin: 12/20/16 23:30 Dose: 324 mg Sodium Chloride (0.9 % Sodium Chloride) 1,000 mls @ 3,750 mls/hr IVC .Q16M [facility] Stop: 12/20/16 22:31 Last Infusion: 12/21/16 01:11 Dose: 0 mls/hr Levofloxacin/Dextrose (Levaquin 750mg/150 Ml) 750 mg in 150 mls @ 100 mls/hr IVPB ONCE ONE PRN Reason: Protocol Stop: 12/20/16 23:16 Piperacillin Sod/Tazobactam (Sod 3.375 gm/ Dextrose) 100 mls @ 100 mls/hr IVPB ONCE ONE PRN Reason: Protocol Stop: 12/20/16 22:46 Last Admin: 12/21/16 01:54 Dose: 100 mls/hr Vancomycin HCl 2,000 mg/ (Dextrose) 250 mls @ 167 mls/hr IVPB ONCE ONE PRN Reason: Protocol Stop: 12/20/16 23:16 Last Admin: 12/20/16 22:15 Dose: 167 mls/hr Microbiology Results 12/20/16 23:36 Nasopharyngeal Influenza Types A,B Antigen (SELMA) - Final Nursing Notes 12/21/16 00:09 Nurse Note by Raad Amaya pt reports feeling better. states he continues to be pain free. Initialized on 12/21/16 00:09 - END OF NOTE 12/20/16 22:20 (created 12/21/16 00:08) Nurse Note by Raad Amaya pt has bowel incontinence and was cleaned prior to givens placement. no noticeable skin break down noted. Initialized on 12/21/16 00:08 - END OF NOTE 12/20/16 22:07 Transport Report by Guanaco Tovar Date: 12/20/16 Transport Method: Wheelchair hydrochlorothiazide Allergy (Verified 12/20/16 21:33) See Comments Resuscitation Status 12/20/16 21:32 XR chest 1V portable [XR] Stat Mode Of Transportation: Wheelchair Reason For Exam: dyspnea Exam Performed At:: [facility] ECG 12 lead ECG [ECG] Stat Mode Of Transportation: Wheelchair Reason For Exam: dyspnea Exam Performed At:: [facility] Oxygen: Mental Status: Fall Risk: Isolation: Nurse Required for Transport: No ___ Yes Limb Restrictions: No ___ Yes Behavioral issue/Risk for Elopement: No ___ Yes Telemetry Room Notification: Destination: MRI XRAY STRESS ULTRASOUND CT DIALYSIS ENDO OTHER: Depart Time: Nurse: Transporter: Arrive Time: Received by: ___ Return Time: Nurse: Transporter: ] Initialized on 12/20/16 22:07 - END OF NOTE Orders 12/20/16 21:32 12 lead ECG assessment [RC] NOW Cardiac monitoring [RC] .ONCE Saline lock [RC] .ONCE Supplemental oxygen titration [RC] .ONCE Physician Instructions: Vital Signs Assessment [RC] PROTOCOL XR chest 1V portable [XR] Stat Mode Of Transportation: Wheelchair Reason For Exam: dyspnea Exam Performed At:: [facility] ECG 12 lead ECG [ECG] Stat Mode Of Transportation: Wheelchair Reason For Exam: dyspnea Exam Performed At:: [facility] 12/20/16 21:47 IV insertion - peripheral [RC] NOW Insert second IV line [RC] .ONCE Arterial Blood Gas Stat Comment: Specimen: Send someone from the department to collect Levofloxacin 750 MG/150 ML [Levaquin 750mg/150 mL] 750 mg in 150 ml IVPB ONCE Piperacillin/Tazobactam [Zosyn] 3.375 gm D5% in Water (Mini-Bag+) [Dextrose 5 % (Minibag+) 100 ML] 100 ml IVPB ONCE Vancomycin [Vancocin] 2,000 mg D5% in Water [Dextrose 5%] 250 ml IVPB ONCE 12/20/16 21:[address] Stat Comment: Reason for Visit: sepsis Acetaminophen [Tylenol] 1,000 mg PO ONCE ONE 12/20/16 21:58 Urinalysis Reflex Cult & Micro [URIN] Stat Comment: Specimen: Has been collected 12/20/16 22:00 0.9 % Sodium Chloride 1,000 ml IVC 3,750 mls/hr 12/20/16 22:04 Activated Partial Thrombo Time [COAG] Stat Comment: Specimen: Send someone from the department to collect B-Type Natriuretic Peptide Stat Comment: Specimen: Send someone from the department to collect Basic Metabolic Panel Stat Comment: Specimen: Send someone from the department to collect Complete Blood Count [HEME] Stat Comment: Specimen: Send someone from the department to collect Culture,Blood [BC] Stat Comment: Draw from [facility]. [facility] Source: Peripheral Venipuncture Quantity: 1 Specimen: Send someone from the department to collect Specimen Description: Culture,Blood,Additional [BC] Stat Comment: [facility] Source: Peripheral Venipuncture Quantity: 1 Specimen: Send someone from the department to collect Specimen Description: Lactic Acid ([facility] Only) Stat Comment: Specimen: Send someone from the department to collect Magnesium Stat Comment: Specimen: Send someone from the department to collect Phosphorous Stat Comment: Specimen: Send someone from the department to collect Prothrombin Time INR [COAG] Stat Comment: Specimen: Send someone from the department to collect Troponin I Stat Comment: Specimen: Send someone from the department to collect 12/20/16 22:33 Givens [Urinary cath initate/manage] [RC] .NOW 12/20/16 22:41 Aspirin 324 mg PO ONCE ONE 12/20/16 23:36 Rapid Influenza [Influenza A/B Antigen] [VIR] Stat Comment: [facility] Source: Nasopharyngeal Specimen: Send someone from the department to collect Specimen Description: 12/21/16 01:14 Apply anti-embolic stockings [RC] .ONCE Vital Signs Assessment [RC] Q4H Acetaminophen [Tylenol] 650 mg PO Q6HR PRN Docusate [Colace] 100 mg PO BID PRN Morphine [Morphine Sulfate] 2 mg IVP Q4HR PRN Naloxone [Narcan] 0.4 mg IVP Q2MIN PRN Ondansetron [Zofran] 4 mg IVP Q8HR PRN OxyCODONE Immed Rel [Roxicodone] 5 mg PO Q6HR PRN Resuscitation Status: Active [RES] Routine Comment: Resuscitation Status: DNR-Comfort Care-Arrest 12/21/16 01:15 Admit as Inpatient Routine Estimated Total Length of Stay (Days): 3 Plans for Post Hospital Care: Transfer SNF Inpatient Status Required: Still symptomatic/not sta Unresolved acute problem Explain each choice below Explain Concerns: The patient presented with acute illness and is at risk for further decline due to comorbid conditions Potential Adverse Outcome: Respiratory Failure Sepsis Cardiac Perfusion Is VTE Prophylaxis Indicated?: Yes Peripheral IV [RC] CONT Up with Assist Daily Comment: Physician Instructions: 12/21/16 01:16 Bed rest [RC] .CONT Physician Instructions: Bed rest w/bedside commode [RC] .PRN Continuous pulse oximetry [RC] CONT Comment: Measure intake and output [RC] QSHIFT Measure weight [RC] DAILY 12/21/16 01:17 RT has an order or consult [RC] NOW 12/21/16 01:18 Oxygen via nasal cannula Nasal Cannula 2 lpm Comment: Titrate O2 to main O2 sat greater than: 92% 12/21/16 01:35 CT chest w/o contrast [CT chest wo con] [CT] Routine Mode Of Transportation: Stretcher Reason For Exam: sepsis.hypoxic resiratory failure Order Doctor: Ziggy Sutton Exam Performed At:: [facility] Allergic to Contrast: No 12/21/16 01:36 BIPAP [RC] PRN BIPAP/CPAP On/Off Times [RC] ONCE RT has an order or consult [RC] NOW 12/21/16 01:45 Troponin I Q6H Comment: Specimen: Send someone from the department to collect 12/21/16 02:00 Vancomycin [Vancocin (wt based)] 2,000 mg D5% in Water [Dextrose 5%] 250 ml IVPB RPHPROT 12/21/16 04:00 Activated Partial Thrombo Time [COAG] AM 0400 Comment: Specimen: Send someone from the department to collect B-Type Natriuretic Peptide AM 0400 Comment: Specimen: Send someone from the department to collect Complete Blood Count [HEME] AM 0400 Comment: Specimen: Send someone from the department to collect Comprehensive Metabolic Panel AM 0400 Comment: Specimen: Send someone from the department to collect Lipid Panel AM 0400 Comment: Specimen: Send someone from the department to collect Magnesium AM 0400 Comment: Specimen: Send someone from the department to collect Phosphorous AM 0400 Comment: Specimen: Send someone from the department to collect Prothrombin Time INR [COAG] AM 0400 Comment: Specimen: Send someone from the department to collect Respiratory Infection Panel [MOLMIC] AM 0400 Specimen: Send someone from the department to collect Urinalysis reflex Microscopic [URIN] AM 0400 Comment: Specimen: Pre-Collection Label Viral Culture,Respiratory [RM] AM 0400 Comment: [facility]EL[facility] Source: Nasopharyngeal Specimen: Send someone from the department to collect Specimen Description: 12/21/16 06:00 Heparin 5,000 unit SQ Q12HR 12/21/16 06:30 Levothyroxine [Synthroid] 50 mcg PO 0630 Omeprazole [PriLOSEC] 20 mg PO DAILY@0630 12/21/16 07:30 Omeprazole [PriLOSEC] 20 mg PO BIDAC 12/21/16 07:45 Troponin I Q6H Comment: Specimen: Send someone from the department to collect 12/21/16 08:00 Piperacillin/Tazobactam [Zosyn] 3.375 gm D5% in Water (Mini-Bag+) [Dextrose 5 % (Minibag+) 100 ML] 100 ml IVPB Q8HR 12/21/16 09:00 Atenolol [Tenormin] 50 mg PO DAILY Furosemide [Lasix] 60 mg PO QAM Gabapentin [Neurontin] 100 mg PO TID Isosorbide MONOnitrate (24 HR) [Imdur] 30 mg PO DAILY Levofloxacin 750 MG/150 ML [Levaquin 750mg/150 mL] 750 mg in 150 ml IVPB DAILY Lisinopril [Zestril] 20 mg PO DAILY Magnesium Oxide [Mag-Ox] 400 mg PO DAILY NIFEdipine XL (24 HR) [Procardia XL] 60 mg PO DAILY Polyethylene Glycol 3350 [MiraLAX] 17 gm PO QAM PredniSONE 20 mg PO DAILY 12/21/16 13:45 Troponin I Q6H Comment: Specimen: Send someone from the department to collect 12/21/16 18:00 Furosemide [Lasix] 20 mg PO QPM 12/21/16 21:00 Simvastatin [Zocor] 20 mg PO HS Tamsulosin [Flomax] 0.4 mg PO HS 12/21/16 Breakfast Cardiac Diet Diet Modifications: 12/22/16 01:15 Up with Assist Daily Comment: Physician Instructions: 12/23/16 01:15 Up with Assist Daily Comment: Physician Instructions: Patient Problems (Last Updated 12/21/16 @ 00:10 by Richard Crook DO) Sepsis (Acute) CHF exacerbation (Acute) Acute on chronic renal failure (Acute) Vital Signs Temp Pulse Resp BP Pulse Ox 12/21/16 01:15 83 18 100/51 97 12/21/16 00:05 99.3 F 92 18 118/55 100 12/20/16 23:00 99 135/65 12/20/16 21:33 102.7 F H 123 24 174/91 94 Laboratory Results 12/20/16 12/20/16 12/20/16 Range/Units 21:58 22:04 22:04 WBC 13.9 H (4.3-11.1) K/mcL RBC 3.97 L (4.19-5.50) M/mcL Hgb 12.5 L (12.9-16.9) g/dL Hct 39.9 (37.5-50.1) % MCV 100.5 H (83.0-100.0) fL MCH 31.5 (28.0-33.3) pg MCHC 31.3 L (31.6-35.5) g/dL RDW 13.0 (11.5-14.5) % Plt Count 205 (140-400) K/mcL MPV 9.9 (9.4-12.4) fL Immature Gran % 0.6 (0-4) % Seg Neutrophils % 91.5 % Lymphocytes % 2.7 % Monocytes % 5.0 % Eosinophils % 0.1 % Basophils % 0.1 % Neutrophils # 12.8 H (1.6-8.9) K/mcL Lymphocytes # 0.4 L (0.6-4.6) K/mcL Monocytes # 0.7 (0.0-1.3) K/mcL Eosinophils # 0.0 (0.0-0.6) K/mcL Basophils # 0.0 (0.0-0.2) K/mcL PT (9.4-12.1) Seconds INR APTT (26.0-36.0) Seconds Sodium 142 (136-145) mEq/L Potassium 4.3 (3.5-4.5) mEq/L Chloride 100 (98-109) mEq/L Carbon Dioxide 31 H (19-29) mEq/L BUN 37 H (8-26) mg/dL Creatinine 1.67 H (0.72-1.25) mg/dL Est GFR ( Amer) 47 L (> 60) Est GFR (Non-Af Amer) 39 L (> 60) BUN/Creatinine Ratio 22 (6-26) Glucose 86 (70-99) mg/dL Calculated Osmolality 302 H (280-300) Lactic Acid (0.5-2.2) mmol/L Calcium 9.6 (8.6-10.8) mg/dL Phosphorus (2.3-4.7) mg/dL Magnesium (1.6-2.6) mg/dL Troponin I (0-0.03) ng/mL B-Natriuretic Peptide (0-100) pg/mL Urine Color Yellow (Yellow) Urine Clarity Clear (Clear) Urine pH 7.0 (5.0-8.0) pH Units Ur Specific Aurora 1.009 L (1.010-1.025) Urine Protein Negative (Neg-Trace) mg/dL Urine Glucose (UA) Normal (Normal) mg/dL Urine Ketones Negative (Negative) mg/dL Urine Blood Negative (Negative) Urine Nitrite Negative (Negative) Urine Bilirubin Negative (Negative) Urine Urobilinogen Normal (Normal) mg/dL Ur Leukocyte Esterase Negative (Negative) Ur Culture Indicated? NO (NO) 12/20/16 12/20/16 12/20/16 Range/Units 22:04 22:04 22:04 WBC (4.3-11.1) K/mcL RBC (4.19-5.50) M/mcL Hgb (12.9-16.9) g/dL Hct (37.5-50.1) % MCV (83.0-100.0) fL MCH (28.0-33.3) pg MCHC (31.6-35.5) g/dL RDW (11.5-14.5) % Plt Count (140-400) K/mcL MPV (9.4-12.4) fL Immature Gran % (0-4) % Seg Neutrophils % % Lymphocytes % % Monocytes % % Eosinophils % % Basophils % % Neutrophils # (1.6-8.9) K/mcL Lymphocytes # (0.6-4.6) K/mcL Monocytes # (0.0-1.3) K/mcL Eosinophils # (0.0-0.6) K/mcL Basophils # (0.0-0.2) K/mcL PT 11.1 (9.4-12.1) Seconds INR 1.0 APTT 23.9 L (26.0-36.0) Seconds Sodium (136-145) mEq/L Potassium (3.5-4.5) mEq/L Chloride (98-109) mEq/L Carbon Dioxide (19-29) mEq/L BUN (8-26) mg/dL Creatinine (0.72-1.25) mg/dL Est GFR ( Amer) (> 60) Est GFR (Non-Af Amer) (> 60) BUN/Creatinine Ratio (6-26) Glucose (70-99) mg/dL Calculated Osmolality (280-300) Lactic Acid (0.5-2.2) mmol/L Calcium (8.6-10.8) mg/dL Phosphorus (2.3-4.7) mg/dL Magnesium (1.6-2.6) mg/dL Troponin I 0.10 H* (0-0.03) ng/mL B-Natriuretic Peptide 262 H (0-100) pg/mL Urine Color (Yellow) Urine Clarity (Clear) Urine pH (5.0-8.0) pH Units Ur Specific Aurora (1.010-1.025) Urine Protein (Neg-Trace) mg/dL Urine Glucose (UA) (Normal) mg/dL Urine Ketones (Negative) mg/dL Urine Blood (Negative) Urine Nitrite (Negative) Urine Bilirubin (Negative) Urine Urobilinogen (Normal) mg/dL Ur Leukocyte Esterase (Negative) Ur Culture Indicated? (NO) 12/20/16 12/20/16 Range/Units 22:04 22:04 WBC (4.3-11.1) K/mcL RBC (4.19-5.50) M/mcL Hgb (12.9-16.9) g/dL Hct (37.5-50.1) % MCV (83.0-100.0) fL MCH (28.0-33.3) pg MCHC (31.6-35.5) g/dL RDW (11.5-14.5) % Plt Count (140-400) K/mcL MPV (9.4-12.4) fL Immature Gran % (0-4) % Seg Neutrophils % % Lymphocytes % % Monocytes % % Eosinophils % % Basophils % % Neutrophils # (1.6-8.9) K/mcL Lymphocytes # (0.6-4.6) K/mcL Monocytes # (0.0-1.3) K/mcL Eosinophils # (0.0-0.6) K/mcL Basophils # (0.0-0.2) K/mcL PT (9.4-12.1) Seconds INR APTT (26.0-36.0) Seconds Sodium (136-145) mEq/L Potassium (3.5-4.5) mEq/L Chloride (98-109) mEq/L Carbon Dioxide (19-29) mEq/L BUN (8-26) mg/dL Creatinine (0.72-1.25) mg/dL Est GFR ( Amer) (> 60) Est GFR (Non-Af Amer) (> 60) BUN/Creatinine Ratio (6-26) Glucose (70-99) mg/dL Calculated Osmolality (280-300) Lactic Acid 1.8 (0.5-2.2) mmol/L Calcium (8.6-10.8) mg/dL Phosphorus 2.8 (2.3-4.7) mg/dL Magnesium 1.9 (1.6-2.6) mg/dL Troponin I (0-0.03) ng/mL B-Natriuretic Peptide (0-100) pg/mL Urine Color (Yellow) Urine Clarity (Clear) Urine pH (5.0-8.0) pH Units Ur Specific Aurora (1.010-1.025) Urine Protein (Neg-Trace) mg/dL Urine Glucose (UA) (Normal) mg/dL Urine Ketones (Negative) mg/dL Urine Blood (Negative) Urine Nitrite (Negative) Urine Bilirubin (Negative) Urine Urobilinogen (Normal) mg/dL Ur Leukocyte Esterase (Negative) Ur Culture Indicated? (NO) Assessments/Treatments 12 lead ECG assessment Start: 12/20/16 21: 32 Freq: NOW Status: Complete Document 12/20/16 22:05 [facility] (Rec: 12/20/16 22:06 [facility] [id number]) EKG Time EKG Completed 21:52 EKG performed by Madonna Romero EKG shown to and signed by Dr Miranda Cardiac monitoring Start: 12/20/16 21: 32 Freq: .ONCE Status: Complete Document 12/20/16 21:33 [facility] (Rec: 12/20/16 21:55 [facility] [id number]) Cardiac Monitoring Heart Rate 123 Monitoring Method Telemetry Rhythm Sinus Tachycardia Monitor Number 9 Collect Specimen: [id number] Start: 12/20/16 21: 58 Freq: ONCE Status: Complete Document 12/20/16 21:58 [facility] (Rec: 12/20/16 23:27 [facility] [id number]) Critical Value Reporting Start: 12/20/16 21: 51 Freq: Status: Complete Document 12/20/16 22:06 [facility] (Rec: 12/20/16 22:06 [facility] [id number]) Critical Values Reporting Test(s) and Results Glucose 524 Time Results Received 21:42 Lab Results Repeated Back Yes Provider Notified Yes Time Provider Contacted 21:[address] Miranda Time Provider Responded 21:44 Number of Attempts to Reach Provider 1 New Orders Received No ED Shortness of Breath Assessment Start: 12/20/16 21: 31 Freq: Status: Complete Document 12/20/16 21:58 [facility] (Rec: 12/20/16 23:27 [facility] [id number]) Shortness of Breath Sepsis Infection Criteria Present suspected infection Sepsis SIRS Criteria temperature > 100.9 or < 96.8 F WBC > 12k or < 4k or bands > 10% HR > 90 bpm Sepsis Organ Dysfunction Criteria none Present Sepsis Screen Sepsis Risk Sepsis Action Taken prov prev notified Sepsis Name of Provider Notified Marcin Miranda Symptoms/Complaint Shortness of Breath Cough Onset Couple Days Duration Constant Severity Mild Context Recent Illness Known History Diabetes Improves With Nothing Worsens With Lying Flat Exertion Associated Symptoms Fever Cough Treatment Prior to Arrival Bronchodilator Effort Spontaneous Labored Pattern Tachypnea Anterior Bilateral Breath Sounds Diminished Cough Description Involuntary Productive Frequency Continuous Level Of Consciousness Awake Alert Appropriate Follows Commands Patient Orientation Person Place Time Name Age Date of Day of Month Day of Week Month Year Time of Day Patient Behavior Appropriate Cooperative Ability to Follow Directions Excellent Impaired Cognition No Skin Temperature Hot Skin Moisture Dry Skin Turgor Loose Capillary Refill < 3 Seconds ED Comment pt recently seen for pnuemonia . pt was d/c back to assisted living. pt c/o increased sob over last couple days, IV catheter insertion - peripheral Start: 12/20/16 21: 47 Freq: NOW Status: Complete Document 12/20/16 21:58 [facility] (Rec: 12/20/16 23:27 [facility] [id number]) Insert Indwelling Urinary Catheter Start: 12/21/16 00: 07 Freq: Status: Complete Document 12/20/16 22:20 [facility] (Rec: 12/21/16 00:08 [facility] [id number]) ED Urinary Catheter Insertion Uretheral (Givens) Catheter present upon arrival No Date of Insertion 12/20/16 Indication catheter insertion strict urinary output measurement Givens catheter per sterile technique* Yes Catheter Size 18F catheter Catheter Balloon Amount (ml) 10 Patency Patent/Draining Catheter Securement Device in Place Yes Leg Bag Applied No Urine Appearance Clear Color Pale Patient Tolerance of Procedure Tolerated Well Time (minutes) for procedure 5 Saline lock insertion/management Start: 12/20/16 21: 32 Freq: .ONCE Status: Complete Document 12/20/16 22:07 [facility] (Rec: 12/20/16 22:07 [facility] [id number]) IV Insertion/Site Assessment IV Attempt 1 Successful Successful Blood drawn and sent to Lab Yes Left Medial Antecubital IV Established USABILITY ENGINEER No Date of Insertion 12/20/16 Time of Insertion 22:07 Reason for IV Insertion Provide Access for Emergency IV Catheter Type Peripheral IV Gauge (gauge) 18 Site Observation Patent Dressing Applied Window Dressing Dry/Intact Patient Tolerance Tolerated Well Triage Start: 12/20/16 21: 31 Freq: Status: Complete Document 12/20/16 21:33 [facility] (Rec: 12/20/16 21:50 [facility] [id number]) Triage Chief Complaint triage ED Shortness of Breath/Dyspnea Patient Stated Complaint SOB DIMPLE 3 Onset (ago) day(s) Description of Symptoms pt reports SOB for several days, increasing in severity. General Appearance alert Work Related Injury? No Mode of arrival EMS Arrival via EMS [facility] Source patient EMS Limitations age Ebola Risk: Travel/Contact With Anyone No From Affected Area/s Temperature (97.6 F-99.6 F) 102.7 F H Temperature Source Oral Pulse Rate 123 Respiratory Rate 24 Blood Pressure 174/91 O2 Sat by Pulse Oximetry 94 Oxygen Delivery Room Air Height 1.73 m Weight 230 kg Weight Measurement Method Stated by Patient Pain Scale 0 Pain Scale Used Standard (1-10) Medical history CHF coronary artery disease diabetes hyperlipidemia hypertension myocardial infarction renal disease thyroid disease other Additional medical history PMH pemphigoid Additional surgical history PMH abdominal surgery from trauma yrs ago. heart caths no stents Psychiatric history no psych history Smoking Status Former smoker Smokeless Tobacco Status No Alcohol Use occasionally Drug Use none Patient resides with/at [facility] Safety Concerns Feels Safe At This Time Do you currently feel hopless, have No thoughts of self harm, or thoughts of harming others History of fall in last 14 days? No Influenza vaccine up to date Yes Pneumonia vaccine up to date Yes Tetanus UTD yes Coma Scale Eye Opening Spontaneous Coma Scale Motor Response Obeys Commands Coma Scale Verbal Response Oriented Coma Scale Total 15 Mother Family Member Ethnicity Non- Family Member Living Status Hx Family Cardiac Disorders No Hx Family Respiratory Disorders No Hx Family Cancer No Hx Family GI Disease No Hx Family Endocrine Disorder Yes: DM2 Hx Family Neuromuscular Dysfunction No Hx Family Neurologic Problems No Hx Family HEENT Problems No Hx Family Autoimmune Disease Problems No Urinary catheter initiation/management Start: 12/20/16 22: 33 Freq: .NOW Status: Complete Document 12/21/16 00:06 [facility] (Rec: 12/21/16 00:07 [facility] [id number]) Vital Signs Assessment Start: 12/20/16 21: 32 Freq: PROTOCOL Status: Active Document 12/20/16 23:00 [facility] (Rec: 12/21/16 00:03 [facility] [id number]) ED Vital Signs Pain Reported No Pain Reported Pain Scale Used Standard (1-10) Blood Pressure 135/65 Pulse Rate 99 Document 12/21/16 00:05 [facility] (Rec: 12/21/16 00:06 [facility] [id number]) ED Vital Signs Pain Reported No Pain Reported Pain Scale Used Standard (1-10) Blood Pressure 118/55 Pulse Rate 92 Respiratory Rate 18 Effort Spontaneous Non-Labored Pattern Regular Pulse Oximetry 100 Oxygen Delivery Nasal Cannula Oxygen Flow Rate (LPM) 2 Temperature (97.6 F-99.6 F) 99.3 F Temperature Source Oral Document 12/21/16 01:15 [facility] (Rec: 12/21/16 01:16 [facility] [id number]) ED Vital Signs Pain Reported No Pain Reported Pain Scale Used Standard (1-10) Blood Pressure 100/51 Pulse Rate 83 Respiratory Rate 18 Effort Spontaneous Non-Labored Pattern Regular Pulse Oximetry 97 Oxygen Delivery Nasal Cannula Oxygen Flow Rate (LPM) 2 Discharge Information ED Provider: Marcin Miranda Status: Admitted Observation Patient Time Seen by Provider: 12/20/16 21:32 Condition: Serious Triaged At: 12/20/16 21:33 Emergency Discharge Date/Time: Emergency Discharge Disposition: Admitted As Inpatient Clinical Impression Sepsis CHF exacerbation Acute on chronic renal failure Emergency Discharge Comment: Admit Intervention Last Done ED Shortness of Breath Assessment 12/20/16 21:58 Query Result Sepsis Infection Criteria Present suspected infection Sepsis SIRS Criteria temperature > 100.9 or < WBC HR > 90 bpm Sepsis Organ Dysfunction Criteria none Present Sepsis Screen Sepsis Risk Sepsis Action Taken prov prev notified Sepsis Name of Provider Notified Marcin Miranda Shortness Of Breath Symptoms/Complaint Shortness of Breath Cough Shortness Of Breath Onset Couple Days Shortness Of Breath Duration Constant Shortness Of Breath Severity Mild Shortness Of Breath Context Recent Illness Shortness Of Breath Known History Diabetes Shortness Of Breath Improves With Nothing Shortness Of Breath Worsens With Lying Flat Exertion Shortness Of Breath Associated Symptoms Fever Cough Shortness Of Breath Treatments Prior to Bronchodilator Arrival Respiratory Effort Spontaneous Labored Respiratory Pattern Tachypnea Anterior Bilateral -Breath Sounds Diminished Cough Description Involuntary Productive Cough Frequency Continuous Level Of Consciousness Awake Alert Appropriate Follows Commands Patient Orientation Person Place Time Name Age Date of Day of Month Day of Week Month Year Time of Day Patient Behavior Appropriate Cooperative Ability to Follow Directions Excellent Impaired Cognition No Skin Temperature Hot Skin Moisture Dry Skin Turgor Loose Capillary Refill < 3 Seconds ED Comment pt recently seen for pnuemonia . pt was d/c back to assisted living. pt c/o increased sob over last couple days, ED Discharge Assessment Observation Discharge Date/Time: Observation Discharge Disposition: Observation Discharge Comment: Instructions: Stand-Alone Forms: Prescriptions: Visit Report - Forms: - Referrals: Radiology Results Chest X-Ray 12/20/16 21:32
[2016-12-21 04:20] LABS: Basophils % 0.1 %; Eosinophils % 0.2 %; Immature Granulocytes % 0.7 % (0-4); Lymphocytes # 0.7 K/mcL (0.6-4.6); Lymphocytes % 5.6 %; Mean Corpuscular HGB Conc 30.9 g/dL (31.6-35.5); Mean Corpuscular Hemoglobin 31.6 pg (28.0-33.3); Mean Corpuscular Volume 102.2 fL (83.0-100.0); Mean Platelet Volume 10.2 fL (9.4-12.4); Monocytes % 8.5 %; Neutrophils # 10.3 K/mcL (1.6-8.9); Platelet Count 177 K/mcL (140-400); Red Blood Count 3.23 M/mcL (4.19-5.50); Red Cell Distribution Width 13.2 % (11.5-14.5); Segmented Neutrophils % 84.9 %
[2016-12-21 04:23] LABS: Hemoglobin 10.2 g/dL (12.9-16.9)
[2016-12-21 04:24] LABS: INR 1.2; Prothrombin Time 12.5 Seconds (9.4-12.1)
[2016-12-21 04:27] LABS: Activated Partial Thrombo Time 24.5 Seconds (26.0-36.0)
[2016-12-21 04:37] LABS: Albumin 2.5 g/dL (3.5-5.0); Bilirubin,Total 0.6 mg/dL (0.2-1.2); Calcium 8.1 mg/dL (8.6-10.8); Chol/HDL Ratio 3.3 (0-4.9); Globulin 2.5 g/dL (2.4-3.5); Magnesium 1.7 mg/dL (1.6-2.6); Phosphorous 3.9 mg/dL (2.3-4.7)
[2016-12-21] MEDS ORDERED: *HR* Dextrose 50 % in Water (Syg) 50 ML SYRINGE IVP PRN (05:01)
[2016-12-21] MEDS ORDERED: Dextrose Gel 15 GM PO PRN ×2 (05:01)
[2016-12-21] MEDS ORDERED: D5% in Water 1,000 ML IVC PRN (05:01)
[2016-12-21] MEDS: *HR* Heparin 5,000 UNIT/ML VIAL SQ SCH ×2 (05:31→17:08)
[2016-12-21 05:50] LABS: Bilirubin,Urine Negative (Negative); Blood,Urine Negative (Negative); Clarity,Urine Clear (Clear); Color,Urine Yellow (Yellow); Glucose,Urine (UA) Normal (Normal); Ketones,Urine Negative (Negative); Leukocyte Esterase,Urine Trace (Negative); Nitrite,Urine Negative (Negative); PH,Urine 6.5 pH Units (5.0-8.0); Protein,Urine Negative (Neg-Trace); Specific Gravity,Urine 1.019 (1.010-1.025); Urobilinogen,Urine Normal (Normal)
[2016-12-21 05:51] LABS: Bacteria,Urine None Seen per hpf (None-Few); Hyaline Casts,Urine None Seen per lpf (None-Few); RBC,Urine 0-3 per hpf (0-3); Squamous Epithelial Cell,Urine Many per lpf (None-Few); WBC,Urine 0-3 per hpf (0-3)
[2016-12-21 06:03] LABS: ABG Base Excess 8.1 mEq/L (-2.0 to 3.0); ABG HCO3 34.5 mEQ/L (21-27); ABG Oxygen Saturation 97 % (95-98); ABG PCO2 57 mmHg (35-45); ABG PH 7.39 pH Units (7.32-7.45); ABG PO2 95 mmHg (85-104); ABG TCO2 36.2 mEq/L (20-26); Blood Gas FiO2 28 %
[2016-12-21] MEDS ORDERED: Piperacillin/Tazobactam 3.375 GM in D5% in Water (Mini-Bag+) 100 ML IVPB SCH (08:00)
[2016-12-21] MEDS: NIFEdipine XL (24 HR) 60 MG TAB.ER.24 PO SCH (08:17)
[2016-12-21] MEDS: Lisinopril 20 MG TABLET PO SCH (08:17)
[2016-12-21] MEDS: Magnesium Oxide 400 MG TABLET PO SCH (08:17)
[2016-12-21] MEDS: predniSONE 20 MG TABLET PO SCH (08:17)
[2016-12-21] MEDS: Furosemide 40 MG TABLET PO SCH (08:17)
[2016-12-21] MEDS: Gabapentin 100 MG CAPSULE PO SCH ×3 (08:18→21:51)
[2016-12-21] MEDS: Isosorbide MONOnitrate (24 HR) 30 MG TAB.ER.24H PO SCH (08:18)
[2016-12-21] MEDS: Insulin LISPRO 300 UNITS/3 ML VIAL SQ SCH ×5 (08:20→21:57)
[2016-12-21] MEDS ORDERED: Levofloxacin 750 MG/150 ML 750 MG/150 ML BAG IVPB SCH (09:00)
--- NOTE | 2016-12-21 09:14 | Electrocardiograph Report ---
[address] [place] [address] Test Date: 2016-12-20 Pat Name: Daniel Baldwin Department: 104 Room: 2A Gender: M Early Morning: : 1930 Requested By: Marcin Miranda Order Number: [id number] Reading MD: Tree Azul MD Measurements Intervals Isabella Rate: 119 P: AL: 0 QRS: -16 QRSD: 98 T: 97 QT: 281 QTc: 352 Interpretive Statements ARTIFACT LIMITS ANALYSIS, RECOMMEND REPEATING ECG PROBABLY SINUS TACHYCARDIA POSSIBLE ANTERIOR MYOCARDIAL INFARCTION, OF INDETERMINATE AGE MODERATE T-WAVE ABNORMALITY, CONSIDER LATERAL ISCHEMIA Electronically Signed On 12-21-2016 9:13:12 EDT by Tree Azul MD
[2016-12-21 09:31] LABS: Adenovirus Not Detected (Not Detect); Bordetella Pertussis Not Detected (Not Detect); Chlamydophila pneumoniae Not Detected (Not Detect); Coronavirus 229E Not Detected (Not Detect); Coronavirus HKU1 Not Detected (Not Detect); Coronavirus NL63 Not Detected (Not Detect); Coronavirus OC43 Not Detected (Not Detect); Human Metapneumovirus Not Detected (Not Detect); Human Rhinovirus/Enterovirus Not Detected (Not Detect); Influenza A Subtype 2009 H1 Not Detected (Not Detect); Influenza A Untypeable Not Detected (Not Detect); Influenza B Not Detected (Not Detect); Mycoplasma pneumoniae Not Detected (Not Detect); Parainfluenza Virus 1 Not Detected (Not Detect); Parainfluenza Virus 2 Not Detected (Not Detect); Parainfluenza Virus 3 Not Detected (Not Detect); Parainfluenza Virus 4 Not Detected (Not Detect); Respiratory Syncytial Virus ***DETECTED*** (Not Detect)
[2016-12-21] MEDS: *HR* OxyCODONE Immed Rel 5 MG TABLET PO PRN ×2 (14:27→21:51)
[2016-12-21] MEDS: Furosemide 20 MG TABLET PO SCH (17:08)
[2016-12-21] MEDS: Piperacillin/Tazobactam 3.375 GM in D5% in Water (Mini-Bag+) 100 ML IVPB SCH (17:11)
[2016-12-21] MEDS ORDERED: Vancomycin 1,500 MG in D5% in Water 250 ML IVPB SCH (22:00)
[2016-12-22] MEDS: Piperacillin/Tazobactam 3.375 GM in D5% in Water (Mini-Bag+) 100 ML IVPB SCH ×4 (00:16→17:41)
[2016-12-22] MEDS: *HR* OxyCODONE Immed Rel 5 MG TABLET PO PRN ×3 (03:55→17:48)
[2016-12-22] MEDS: *HR* Heparin 5,000 UNIT/ML VIAL SQ SCH ×2 (06:33→17:26)
[2016-12-22] MEDS: Insulin LISPRO 300 UNITS/3 ML VIAL SQ SCH ×4 (07:48→21:45)
[2016-12-22] MEDS: Lisinopril 20 MG TABLET PO SCH (08:25)
[2016-12-22] MEDS: Furosemide 40 MG TABLET PO SCH (08:25)
[2016-12-22] MEDS: Magnesium Oxide 400 MG TABLET PO SCH (08:25)
[2016-12-22] MEDS: NIFEdipine XL (24 HR) 60 MG TAB.ER.24 PO SCH (08:26)
[2016-12-22] MEDS: Isosorbide MONOnitrate (24 HR) 30 MG TAB.ER.24H PO SCH (08:26)
[2016-12-22] MEDS: Gabapentin 100 MG CAPSULE PO SCH ×3 (08:27→21:58)
[2016-12-22] MEDS: predniSONE 20 MG TABLET PO SCH (08:27)
[2016-12-22] MEDS ORDERED: Aminoglycoside Consult 1 EACH MC ONE (08:28)
--- NOTE | 2016-12-22 10:23 | Internal Med Progress Note ---
Date of Encounter: 12/22/16 Time of Encounter: 10:21 - Assessment and plan (1) Cellulitis Status: Acute Assessment and plan: Patient developed new onset of intense erythema and tenderness over left lower extremity, which could be due to tight external compression devices but could also be cellulitis secondary to chronic skin ulcer on left leg. Will continue oral Augmentin and monitor clinically. We will check venous Dopplers of lower extremity to rule out DVT/hematoma. Supportive care and lower extremity elevation. Qualifiers: Site of cellulitis: extremity Site of cellulitis of extremity: lower extremity Laterality: left Qualified Code(s): L03.116 - Cellulitis of left lower limb (2) RSV bronchitis Status: Acute Assessment and plan: Patient has acute on chronic hypoxia, likely related to viral bronchitis. Viral serology positive for RSV. Continue supportive care and supplemental oxygen. Improving oxygen requirements, patient will require home oxygen at discharge. (3) Acute on chronic respiratory failure Status: Acute Assessment and plan: Likely related to bronchitis-while versus bacterial. CT chest shows bibasilar atelectasis but underlying infiltrates cannot be ruled out. Patient has been recently discharged from our hospital after being treated for pneumonia. Patient has been started on broad-spectrum IV antibiotics for possible underlying pneumonia. Continue supplemental oxygen, when necessary bronchodilators and cough suppressants. Qualifiers: Respiratory failure complication: hypoxia Qualified Code(s): J96.21 - Acute and chronic respiratory failure with hypoxia (4) COPD (chronic obstructive pulmonary disease) Status: Chronic Assessment and plan: Not noted to be in acute exacerbation. Continue when necessary bronchodilators and supplemental oxygen. Continue home medications. Qualifiers: COPD type: unspecified COPD Qualified Code(s): J44.9 - Chronic obstructive pulmonary disease, unspecified (5) Non-insulin dependent type 2 diabetes mellitus Status: Chronic Assessment and plan: Continue Accu-Chek blood glucose monitoring with sliding scale insulin. Diabetic diet. (6) HTN (hypertension) Status: Chronic Qualifiers: Hypertension type: essential hypertension Qualified Code(s): I10 - Essential (primary) hypertension (7) HLD (hyperlipidemia) Status: Chronic Qualifiers: Hyperlipidemia type: unspecified Qualified Code(s): E78.5 - Hyperlipidemia , unspecified (8) Hypothyroidism Status: Chronic Qualifiers: Hypothyroidism type: unspecified Qualified Code(s): E03.9 - Hypothyroidism , unspecified (9) Pemphigus Status: Chronic Assessment and plan: Patient is noted to be on chronic low-dose steroid therapy for this, will continue. (10) CKD (chronic kidney disease) stage 3, GFR 30-59 ml/min Status: Chronic (11) Elevated troponin Status: Resolved (12) Aortic stenosis Status: Chronic Qualifiers: Cardiac valve disease etiology: etiology unspecified Qualified Code(s): I35.0 - Nonrheumatic aortic (valve) stenosis (13) CHF (congestive heart failure) Status: Chronic Assessment and plan: Not noted to be in acute exacerbation. Continue beta estrella, Lasix and statin. Qualifiers: Congestive heart failure type: diastolic Congestive heart failure chronicity: chronic Qualified Code(s): I50.32 - Chronic diastolic (congestive ) heart failure (14) CAD (coronary artery disease) Status: Chronic Qualifiers: Coronary Disease-Associated Artery/Lesion type: [place] artery [place] vs. transplanted heart: [place] heart Associated angina: without angina Qualified Code(s): I25.10 - Atherosclerotic heart disease of [place] coronary artery without angina pectoris - Subjective Interval history: Reports feeling about the same. Has intermittent shortness of breath along with cough. Developed left leg and foot redness and pain, which he sees is due to tight external compression devices. - Constitutional Vitals: Temp Pulse Resp BP Pulse Ox 98.2 F 71 18 120/67 98 12/22/16 06:56 12/22/16 06:56 12/22/16 06:56 12/22/16 06:56 12/22/16 08:31 General appearance: Present: A&O X 3, obese, answers questions appropriately - Respiratory Respiratory exam: Present: CTAB (Coarse breath sounds bilaterally), rhonchi. Absent: accessory muscle use, rales, wheezes - Cardiovascular Cardiovascular exam: Present: RRR, +S1, +S2. Absent: diastolic murmur, gallop, rubs, systolic murmur - GI/Abdominal GI/Abdominal exam: Present: normal bowel sounds, soft, no peritoneal signs. Absent: distended, tenderness - Extremities Exam Extremities exam: Present: normal inspection (Non-blanchable diffuse erythema over left anterior leg, extending into dorsal foot with associated tenderness), pedal edema (4+ pitting pedal edema bilaterally), warm, radial pulses palpable and symetrical. Absent: calf tenderness, cyanotic - Neurological Exam Neurological exam: Present: CN II-XII intact, oriented X3, no focal deficits. Absent: pronater drift, facial droop, speech deficit Internal Medicine: Result - Labs CBC & Chem 7: 12/23/16 04:28 12/21/16 04:01 Labs: Cardiac Enzymes 12/21/16 12/21/16 Range/Units 10:13 17:06 Troponin I 0.34 H* 0.25 H* (0-0.03) ng/mL - ABG Interpretation ABG results: ABG ABG pH 7.39 pH Units (7.32-7.45) 12/21/16 05:53 ABG pCO2 57 mmHg (35-45) H 12/21/16 05:53 ABG pO2 95 mmHg (85-104) 12/21/16 05:53 ABG O2 Saturation 97 % (95-98) 12/21/16 05:53 PT/INR, D-dimer PT 12.5 Seconds (9.4-12.1) H 12/21/16 04:01 - VTE Documentation of Mechanical Device: Graduated compression elastic hosiery Consult Discharge Plan - Plan Instructions: Heart Failure (DC), Acute Bronchitis (DC) [facility] Care Provider[facility] - Prescriptions: Amoxicillin/Clavulanate [Augmentin] 500 mg PO BIDWM #10 tablet
--- NOTE | 2016-12-22 15:27 | Venous Imaging Report ---
LE Venous Duplex Patient Name:Daniel Baldwin Order Number:[id number] Procedure Date:12/22/2016 Date:1930ge:86 yrs Gender:Male Location:[facility] Room #: 2A47 Ball Shagger:Madeline Carson Referring MD:Melissa Spear MD sand bobber:[facility] Reading MD:Domo Larose MD , FACS Secondary Indications: Risk Factors Yes/No Anticoagulants Yes Impressions: Left lower extremity: normal superficial and deep exam. Right lower extremity: normal contralateral exam. Findings Venous Duplex Results: Right: Venous imaging of the lower extremity reveals full patency and normal vessel compressibility of the right common femoral. Doppler signals in the evaluated veins were normal. Left: Venous imaging of the lower extremity reveals full patency and normal vessel compressibility of the left distal iliac, left common femoral, left superficial femoral, left popliteal, left posterior tibial, left peroneal, left great saphenous and left lesser saphenous. Doppler signals in the evaluated veins were normal. Lower Extremity Venous Duplex Side Vein Compress Spontaneous Flow Augment Diameter (cm) Depth (cm) Left Distal Iliac Normal Yes Phasic Yes Left Common Femoral Normal Yes Phasic Yes Left Superficial Femoral Normal Yes Phasic Yes Left Popliteal Normal Yes Phasic Yes Left Posterior Tibial Normal Yes Phasic Yes Left Peroneal Normal Yes Phasic Yes Left Great Saphenous Normal Yes Phasic Yes Left Lesser Saphenous Normal Yes Phasic Yes Right Common Femoral Normal Yes Phasic Yes Updated by Domo Larose MD, FACS on 12/22/2016 3:20:32 PM Domo Larose MD electronically signed on 12/22/2016 3:20:57 PM with status of Final
[2016-12-22] MEDS: Furosemide 20 MG TABLET PO SCH (17:26)
[2016-12-22] MEDS: Amoxicillin/Clavulanate 500 MG TABLET PO SCH (21:58)
[2016-12-23 05:07] LABS: Eosinophils # 0.1 K/mcL (0.0-0.6); Eosinophils % 0.7 %; Hematocrit 32.7 % (37.5-50.1); Hemoglobin 10.7 g/dL (12.9-16.9); Immature Granulocytes % 0.7 % (0-4); Lymphocytes # 0.7 K/mcL (0.6-4.6); Mean Corpuscular HGB Conc 32.7 g/dL (31.6-35.5); Mean Corpuscular Hemoglobin 32.5 pg (28.0-33.3); Mean Corpuscular Volume 99.4 fL (83.0-100.0); Mean Platelet Volume 10.7 fL (9.4-12.4); Monocytes # 0.8 K/mcL (0.0-1.3); Monocytes % 8.9 %; Neutrophils # 7.5 K/mcL (1.6-8.9); Platelet Count 191 K/mcL (140-400); Red Blood Count 3.29 M/mcL (4.19-5.50); Red Cell Distribution Width 13.2 % (11.5-14.5); Segmented Neutrophils % 81.7 %
[2016-12-23] MEDS: *HR* Heparin 5,000 UNIT/ML VIAL SQ SCH ×2 (06:39→17:34)
[2016-12-23] MEDS: *HR* OxyCODONE Immed Rel 5 MG TABLET PO PRN ×2 (06:39→12:55)
[2016-12-23] MEDS: Insulin LISPRO 300 UNITS/3 ML VIAL SQ SCH ×3 (07:57→17:34)
[2016-12-23] MEDS: NIFEdipine XL (24 HR) 60 MG TAB.ER.24 PO SCH (08:04)
[2016-12-23] MEDS: Gabapentin 100 MG CAPSULE PO SCH ×2 (08:04→15:11)
[2016-12-23] MEDS: predniSONE 20 MG TABLET PO SCH (08:04)
[2016-12-23] MEDS: Amoxicillin/Clavulanate 500 MG TABLET PO SCH ×2 (08:04→17:33)
[2016-12-23] MEDS: Furosemide 40 MG TABLET PO SCH (08:05)
[2016-12-23] MEDS: Lisinopril 20 MG TABLET PO SCH (08:05)
[2016-12-23] MEDS: Magnesium Oxide 400 MG TABLET PO SCH (08:05)
[2016-12-23] MEDS: Isosorbide MONOnitrate (24 HR) 30 MG TAB.ER.24H PO SCH (08:05)
--- NOTE | 2016-12-23 13:59 | Discharge Summary ---
Date of Encounter: 12/23/16 Time of Encounter: 13:00 - Discharge Diagnosis (1) RSV bronchitis Priority: Primary Status: Acute (2) Acute on chronic respiratory failure Priority: Primary Status: Acute Qualifiers: Respiratory failure complication: hypoxia Qualified Code(s): J96.21 - Acute and chronic respiratory failure with hypoxia (3) CHF (congestive heart failure) Priority: Secondary Status: Chronic Qualifiers: Congestive heart failure type: diastolic Congestive heart failure chronicity: chronic Qualified Code(s): I50.32 - Chronic diastolic (congestive ) heart failure (4) CAD (coronary artery disease) Priority: Secondary Status: Chronic Qualifiers: Coronary Disease-Associated Artery/Lesion type: [place] artery [place] vs. transplanted heart: [place] heart Associated angina: without angina Qualified Code(s): I25.10 - Atherosclerotic heart disease of [place] coronary artery without angina pectoris (5) Non-insulin dependent type 2 diabetes mellitus Priority: Secondary Status: Chronic (6) HTN (hypertension) Priority: Secondary Status: Chronic Qualifiers: Hypertension type: essential hypertension Qualified Code(s): I10 - Essential (primary) hypertension (7) HLD (hyperlipidemia) Priority: Secondary Status: Chronic Qualifiers: Hyperlipidemia type: unspecified Qualified Code(s): E78.5 - Hyperlipidemia , unspecified (8) Hypothyroidism Priority: Secondary Status: Chronic Qualifiers: Hypothyroidism type: unspecified Qualified Code(s): E03.9 - Hypothyroidism , unspecified (9) Pemphigus Priority: Secondary Status: Chronic (10) CKD (chronic kidney disease) stage 3, GFR 30-59 ml/min Priority: Secondary Status: Chronic (11) Aortic stenosis Priority: Secondary Status: Chronic Qualifiers: Cardiac valve disease etiology: etiology unspecified Qualified Code(s): I35.0 - Nonrheumatic aortic (valve) stenosis - Discharge Medications Prescriptions: Amoxicillin/Clavulanate [Augmentin] 500 mg PO BIDWM #10 tablet Home Medications: Gabapentin [Neurontin] 100 mg PO TID 03/15/16 [History] GlipiZIDE [Glucotrol] 2.5 mg PO BIDWM 03/15/16 [History] Isosorbide MONOnitrate (24 HR) [Imdur] 30 mg PO DAILY 03/15/16 [History] Omeprazole [PriLOSEC] 20 mg PO BIDAC 03/15/16 [History] Simvastatin [Zocor] 20 mg PO HS 03/15/16 [History] Tamsulosin [Flomax] 0.4 mg PO HS capsule 04/15/16 [Rx] Acetaminophen [Tylenol] 975 mg PO TID PRN 12/03/16 [History] Ferrous Gluconate 324 mg PO DAILY 12/03/16 [History] Magnesium Oxide [Magnesium] 400 mg PO DAILY 12/03/16 [History] Multivitamin [Multivitamins] 1 tab PO DAILY 12/03/16 [History] Polyethylene Glycol 3350 [Smoothlax] 17 gm PO QAM 12/03/16 [History] Atenolol [Tenormin] 50 mg PO DAILY 12/20/16 [History] Furosemide [Lasix] 20 mg PO QPM 12/20/16 [History] Furosemide [Lasix] 60 mg PO QAM 12/20/16 [History] Levothyroxine [Synthroid] 50 mcg PO 0630 12/20/16 [History] Lisinopril [Zestril] 20 mg PO DAILY 12/20/16 [History] NIFEdipine XL (24 HR) [Procardia XL] 60 mg PO DAILY 12/20/16 [History] PredniSONE 20 mg PO DAILY 12/20/16 [History] Amoxicillin/Clavulanate [Augmentin] 500 mg PO BIDWM #10 tablet 12/23/16 [Rx] Allergies/Adverse Reactions: Allergies hydrochlorothiazide Allergy (Verified 12/20/16 21:33) See Comments Procedures/tests Complete & Pending: Procedures Performed prior 72 hours Category Date Time Status CT chest w/o contrast [CT chest wo con] [CT] Routine Cat Scan 12/21/16 01:35 Completed US retroperitoneal comp [US] Routine Exams 12/22/16 16:30 Completed Venous Doppler [EV venous imaging LE LT] Routine Y 12/22/16 10:23 Completed Date of admission: 12/21/16 01:31 [facility] Consults: 12/21/16 12:43 Consult to Thread Winder [CONS] Routine Reason for Consult: [facility] Discharging clinician: Fleisa Spear Anticipated date of discharge: 12/23/16 - Patient Status Disposition: Home Health Service Condition: Fair Functional capacity at discharge: uses cane/walker Overall status at discharge: patient is progressing back to baseline - Discharge Instructions Instructions: Heart Failure (DC), Acute Bronchitis (DC) [facility] With: [facility] [Primary Care Provider[facility] - - Diet and Activity Activity: ambulate only with your walker, as per physical therapy, wear oxygen at all times Diet: diabetic diet, low fat, low cholesterol, low salt diet (fluid restriction to 1.2L/day) Hospital course: Mr. Baldwin is a 86 year old male with the above medical problems who was admitted with worsening cough and shortness of breath. Initial imaging studies done in the emergency room was suggestive of infiltrates and patient was started on broad-spectrum IV antibiotics as he presents from assisted living facility and has had a recent hospitalization. Blood cultures remain negative but respiratory viral serology was positive for RSV and patient likely has viral bronchitis. His clinical condition and oxygen requirements improved with this regimen. On day 2 of hospitalization, he developed significant erythema, warmth and tenderness of his left leg and foot, partly due to tight external compression devices. He was continued on oral Augmentin for possible underlying cellulitis and redness and warmth significantly improved today. Venous Doppler of left lower extremity shows no evidence of DVT. He continues to require at least 2 L/ m supplemental oxygen via nasal cannula at rest. Home oxygen evaluation has been completed and he would benefit from portable home oxygen, he is noted to be mobile at home. Patient is otherwise medically stable for discharge with outpatient follow-up. - Time Spent with Patient Total time spent providing and/or coordinating discharge services: Greater than 30 minutes (50 min) - Constitutional Vitals: Temp Pulse Resp BP Pulse Ox 98.4 F 81 17 131/68 96 12/23/16 12:47 12/23/16 12:47 12/23/16 12:47 12/23/16 12:47 12/23/16 12:47 General appearance: Present: A&O X 3, obese, answers questions appropriately - Respiratory Respiratory exam: Present: CTAB. Absent: accessory muscle use, rales, rhonchi, wheezes - Extremities Exam Extremities exam: Present: pedal edema (3+ pitting pedal edema B/L, improving), warm, radial pulses palpable and symetrical. Absent: calf tenderness, cyanotic Additional comments: left LE- significantly improved erythema and tenderness over anterior leg and dorsum of foot - VTE Documentation of Mechanical Device: Graduated compression elastic hosiery
--- NOTE | 2016-12-23 15:32 | Internal Med Progress Note ---
Date of Encounter: 12/21/16 Time of Encounter: 14:00 - Assessment and plan (1) RSV bronchitis Current Visit: Yes Status: Acute Assessment and plan: Patient has acute on chronic hypoxia, likely related to viral bronchitis. Viral serology positive for RSV. Continue supportive care and supplemental oxygen. (2) Acute on chronic respiratory failure Current Visit: Yes Status: Acute Assessment and plan: Likely related to bronchitis-while versus bacterial. CT chest shows bibasilar atelectasis but underlying infiltrates cannot be ruled out. Patient has been recently discharged from our hospital after being treated for pneumonia. Patient has been started on broad-spectrum IV antibiotics for possible underlying pneumonia. Continue supplemental oxygen, when necessary bronchodilators and cough suppressants. Patient is also noted to have mild troponin elevation, which is likely demand ischemia due to hypoxia. Continue telemetry monitoring. Serial troponins are noted to be trending down. Qualifiers: Respiratory failure complication: hypoxia Qualified Code(s): J96.21 - Acute and chronic respiratory failure with hypoxia (3) CHF (congestive heart failure) Current Visit: Yes Status: Chronic Assessment and plan: Not noted to be in acute exacerbation. Continue beta estrella, Lasix and statin. Qualifiers: Congestive heart failure type: diastolic Congestive heart failure chronicity: chronic Qualified Code(s): I50.32 - Chronic diastolic (congestive ) heart failure (4) CAD (coronary artery disease) Current Visit: Yes Status: Chronic Qualifiers: Coronary Disease-Associated Artery/Lesion type: [place] artery [place] vs. transplanted heart: [place] heart Associated angina: without angina Qualified Code(s): I25.10 - Atherosclerotic heart disease of [place] coronary artery without angina pectoris (5) Non-insulin dependent type 2 diabetes mellitus Current Visit: Yes Status: Chronic Assessment and plan: Continue Accu-Chek blood glucose monitoring with sliding scale insulin. Diabetic diet. (6) HTN (hypertension) Current Visit: Yes Status: Chronic Qualifiers: Hypertension type: essential hypertension Qualified Code(s): I10 - Essential (primary) hypertension (7) HLD (hyperlipidemia) Current Visit: Yes Status: Chronic Qualifiers: Hyperlipidemia type: unspecified Qualified Code(s): E78.5 - Hyperlipidemia , unspecified (8) Hypothyroidism Current Visit: Yes Status: Chronic Qualifiers: Hypothyroidism type: unspecified Qualified Code(s): E03.9 - Hypothyroidism , unspecified (9) Pemphigus Current Visit: Yes Status: Chronic Assessment and plan: Patient is noted to be on chronic low-dose steroid therapy for this, will continue. (10) CKD (chronic kidney disease) stage 3, GFR 30-59 ml/min Current Visit: No Status: Chronic (11) Aortic stenosis Current Visit: Yes Status: Chronic Qualifiers: Cardiac valve disease etiology: etiology unspecified Qualified Code(s): I35.0 - Nonrheumatic aortic (valve) stenosis - Subjective Interval history: No chest pain but does report intermittent cough and shortness of breath. Mostly sedentary, unable to ambulate independently. Does have chronic leg swelling. - Constitutional Vitals: Temp Pulse Resp BP Pulse Ox 98.4 F 81 17 131/68 93 12/23/16 12:47 12/23/16 12:47 12/23/16 12:47 12/23/16 12:47 12/23/16 15:13 General appearance: Present: A&O X 3, obese, answers questions appropriately - Respiratory Respiratory exam: Present: CTAB (Coarse breath sounds bilaterally). Absent: accessory muscle use, rales, rhonchi, wheezes - Cardiovascular Cardiovascular exam: Present: RRR, +S1, +S2. Absent: diastolic murmur, gallop, rubs, systolic murmur - GI/Abdominal GI/Abdominal exam: Present: normal bowel sounds, soft (Obese), no peritoneal signs. Absent: distended, tenderness - Extremities Exam Extremities exam: Present: full ROM, pedal edema (4+ pitting pedal edema bilaterally), warm, radial pulses palpable and symetrical. Absent: calf tenderness, cyanotic - Neurological Exam Neurological exam: Present: CN II-XII intact, oriented X3, no focal deficits. Absent: pronater drift, facial droop, speech deficit Internal Medicine: Result - Labs CBC & Chem 7: 12/23/16 04:28 12/21/16 04:01 Labs: Short CBC 12/23/16 Range/Units 04:28 WBC 9.2 (4.3-11.1) K/mcL Hgb 10.7 L (12.9-16.9) g/dL Hct 32.7 L (37.5-50.1) % Plt Count 191 (140-400) K/mcL Neutrophils # 7.5 (1.6-8.9) K/mcL - ABG Interpretation ABG results: ABG ABG pH 7.39 pH Units (7.32-7.45) 12/21/16 05:53 ABG pCO2 57 mmHg (35-45) H 12/21/16 05:53 ABG pO2 95 mmHg (85-104) 12/21/16 05:53 ABG O2 Saturation 97 % (95-98) 12/21/16 05:53 PT/INR, D-dimer PT 12.5 Seconds (9.4-12.1) H 12/21/16 04:01 - Impressions Impressions Retroperitoneum Ultrasound 12/22/16 16:30 IMPRESSION: 1. Increased cortical echogenicity evidence of chronic medical renal disease. 2. Small amount of fluid in the perirenal space inferior to both kidneys. This may represent mild edema in association with renal insufficiency. 3. Apparent bladder mucosal thickening likely due to nondistention. D/ / Kayode Byrd MD / Kayode Byrd MD Interpreting Provider: Kayode Byrd MD - VTE Documentation of Mechanical Device: Graduated compression elastic hosiery Consult Discharge Plan - Plan [facility]errals: [facility] [Primary Care Provider[facility] - Prescriptions: Amoxicillin/Clavulanate [Augmentin] 500 mg PO BIDWM #10 tablet
[2016-12-23 16:05] VITALS: BP 129/54
[2016-12-23] MEDS: Furosemide 20 MG TABLET PO SCH (17:33)
== END 2016-12-23 18:18 | disposition home health service (06) | DRG 871 ==
LOC: EMEROO 21:29 → 2ANU 21:29 → SUATTDRO 12-21 01:31 → 2ANU 12-21 02:37
PROVIDERS: ADMIT Internal Medicine; ATTEND Internal Medicine

== ENCOUNTER 2017-01-07 16:23 | Inpatient (IN) ==
[2017-01-07] MEDS ORDERED: Furosemide 40 MG/4 ML VIAL IVP ONE (16:25)
--- NOTE | 2017-01-07 16:27 | Emergency Department Note ---
START Narrative - START START: I examined this patient and my medical decision-making was reviewed with the RECRUITMENT ADVERTISING MANAGER/PA/Advanced Practice Nurse/Resident Physician. I agree with the documented findings, disposition and treatment plan as described except to the extent set forth below. ED attending note: Patient seen with emergency medicine resident Dr. Lao. Please see a copy of his note for details of the H&P, evaluation, management and disposition of this patient. We independently had [id number] contact with the patient Briefly: 86-year-old male partially nonambulatory from [facility] facility increasing shortness of breath has rales bilaterally long term up patient was placed on a BiPAP worked up for CHF and acute coronary syndrome flare. Providing 45 minutes of critical care services for this patient admission and anticipated however disposition pending.
--- NOTE | 2017-01-07 16:59 | Emergency Department Note ---
Disposition Clinical Impression: CHF exacerbation Qualifiers: Congestive heart failure type: unspecified congestive heart failure type Qualified Code(s): I50.9 - Heart failure, unspecified Fluid overload Qualifiers: Hypervolemia type: unspecified Qualified Code(s): E87.70 - Fluid overload, unspecified Disposition: Admitted As Inpatient Condition: Fair [facility]: [facility]Primary Care Provider[facility] - Time of Disposition: 17:37 SOB HPI - General Stated Complaint: sob Time Seen by Provider: 01/07/17 16:25 Source: patient, EMS Mode of arrival: EMS Limitations: no limitations Nursing Notes Reviewed: Yes Vital Signs Reviewed: Yes - History of Present Illness Patient presents emergency room, shortness of breath. Mom by EMS to the ER for evaluation. Denies any other symptoms or complaints. Has long-standing history of fluid overload. Patient denies chest pain fevers chills nausea vomiting diarrhea. Denies headache or vision change. He lives in assisting living facility at this time. He was just concerned because the fluid was getting worse and he could not get around his house without any difficulty Pt Subjective Complaint: shortness of breath Onset (ago): day(s) Severity: moderate Consistency/Duration: constant Improves with: oxygen, upright position Worsens with: lying flat, exertion Known history of: congestive heart failure Associated symptoms: Reports: orthopnea, lower extremity pain Treatment prior to arrival: oxygen - Related Data Home Medications Medication Instructions Recorded Confirmed Gabapentin [Neurontin] 100 mg PO TID 03/15/16 01/07/17 GlipiZIDE [Glucotrol] 2.5 mg PO BIDWM 03/15/16 01/07/17 Isosorbide MONOnitrate (24 HR) 30 mg PO DAILY 03/15/16 01/07/17 [Imdur] Omeprazole [PriLOSEC] 20 mg PO BIDAC 03/15/16 01/07/17 Acetaminophen [Tylenol] 975 mg PO TID PRN 12/03/16 01/07/17 Ferrous Gluconate 324 mg PO DAILY 12/03/16 01/07/17 Magnesium Oxide [Magnesium] 400 mg PO DAILY 12/03/16 01/07/17 Multivitamin [Multivitamins] 1 cap PO DAILY 12/03/16 01/07/17 Polyethylene Glycol 3350 17 gm PO BID PRN 03/17/17 04/21/17 [Smoothlax] Atenolol [Tenormin] 50 mg PO HS 12/20/16 01/07/17 Levothyroxine [Synthroid] 50 mcg PO QAM 12/20/16 01/07/17 Lisinopril [Zestril] 20 mg PO DAILY 12/20/16 01/07/17 PredniSONE 20 mg PO DAILY 12/20/16 01/07/17 Atorvastatin [Lipitor] 10 mg PO HS 01/07/17 01/07/17 Carbamide Peroxide [Ear Drops] 15 ml BOTH EARS DAILY 01/07/17 01/07/17 Guaifenesin [Tussin] 300 mg PO TID PRN 01/07/17 01/07/17 Lidocaine 1 appl TP TID PRN 01/07/17 01/07/17 Loperamide [Imodium] 4 mg PO Q6H PRN 01/07/17 01/07/17 Oxycodone HCl [Oxaydo] 5 mg PO Q8H PRN 01/07/17 01/07/17 Torsemide [Demadex] 20 mg PO BID 01/07/17 01/07/17 Previous Rx's Medication Instructions Recorded Tamsulosin [Flomax] 0.4 mg PO HS capsule 04/15/16 Allergies Allergy/AdvReac Type Severity Reaction Status Date / Time hydrochlorothiazide Allergy See Verified 12/20/16 21:33 Comments All systems ED: reviewed and negative except as stated. Constitutional: Denies: fever Cardiovascular: Reports: dyspnea on exertion, orthopnea, edema. Denies: chest pain, palpitations Respiratory: Denies: dyspnea, wheezes, hemoptysis Gastrointestinal: Denies: abdominal pain, nausea, vomiting, diarrhea Musculoskeletal: Denies: back pain Neurological: Denies: headache Past Medical History - Past Medical History Attestation: Yes The following information was validated with the patient. Source: patient Medical history: Reports: arthritis, CHF, COPD, coronary artery disease, diabetes, GERD, hyperlipidemia, hypertension, myocardial infarction, renal disease, thyroid disease, syncope, valvular heart disease, other Surgical history: Reports: other Psychiatric history: Reports: no psych history, other - Social History Smoking Status: Former smoker Smokeless Tobacco Status: No Alcohol use: Reports: occasionally Drug use: Reports: none Physical Exam - General Limitations: no limitations General appearance: alert - Chest Chest inspection: Present: normal inspection, symmetric chest wall rise. Absent : tenderness - Respiratory Respiratory exam: Present: respiratory distress, accessory muscle use. Absent: wheezes, stridor - Cardiovascular Cardiovascular exam: Present: regular rate, normal rhythm, normal heart sounds - Abdominal Exam Abdominal exam: Present: soft, Non-Tender, normal bowel sounds. Absent: tenderness, distention, guarding, rebound, rigidity, Jensen's sign, Rovsing's sign, tenderness at McBurney's Point, mass, pulsatile mass, hernia - Extremities Exam Extremities exam: Present: normal inspection, normal capillary refill, pedal edema. Absent: tenderness - Back Exam Back exam: Present: normal inspection - Neurological Exam Neurological exam: Present: alert, oriented X3, CN II-XII intact - Skin Skin exam: Present: warm, dry, intact, normal color Course Course Narrative: Patient seen and examined the time of arrival by EMS. See history of present illness. 86-year-old male presents today from assisted living facility. Had persistently worsening shortness of breath over the last several days. Patient denies any medication changes trauma illnesses over the last couple days to weeks. Patient was concerned today because he was not able to get around his house without any significant work of breathing and shortness of breath. Patient said he called EMS to transport. Denied chest pain fevers chills nausea vomiting diarrhea. Denies headache or vision changes. Main complaint is exertional dyspnea home as well as persistently worsening fluid overload. Patient has history of CHF based on physical exam on presentation patient has significant accessory muscle use and increased work of breathing. He has coarse breath sounds bilaterally. BiPAP was ordered initially during triage evaluation. Vital signs reviewed and are stable he is afebrile. Patient has pitting edema to the mid thigh with several areas of venous stasis ulcer that have appropriate wound care bandages applied. Patient otherwise has no other acute pathology was shown is appropriate. He is on a blood thinner but does not know what it is. He has multiple areas of bruising across his abdomen and extremities. Patient does not describe any recent falls or injuries. Denies any head trauma. Patient is mentating appropriately at this point. What appears to be a presentation of acute exacerbation fluid overload and CHF. Patient will have repeat evaluation after BiPAP was applied. Labs EKG chest x- ray troponin ordered at this time. First dose of IV Lasix based on symptom presentation and history. Disposition most likely admission to the hospital. We will continue him on his workup and treatment course are completed - Reevaluation(s) Reevaluation #1: Labs found to be at baseline for the patient. BNP is decreased comparison to previous evaluation as well as troponin. Patient is denying any chest pain this time. Symptoms have been better controlled with BiPAP applied here. Patient has what appears to be an exacerbation of CHF with presentation consistent with pulmonary edema. Patient stable resting comfortably in the bed. He will be admitted at this time for evaluation and treatment course and stabilization of his breathing. Time: 17:37 Reevaluation #2: Patient discussed with the hospitalist Dr. Barnard. Detailed review the presentation symptoms previous medical evaluation and admission were discussed. Patient presented today with what appeared to be CHF, fluid overload, flash pulmonary edema. Patient responded appropriately to BiPAP and is tolerating it at 2 L of oxygen 28% FiO2. Patient is otherwise resting comfortably in the bed no distress at this time. Vision process to be completed. No other recommendations for the hospitalist except for a telemetry bed at this time. We will continue monitoring in the emergency room and to admission process is completed Time: 17:51 Vital Signs Temperature 98.2 F 01/07/17 16:25 Pulse Rate 90 01/07/17 16:25 Respiratory Rate 18 01/07/17 16:25 Blood Pressure 162/66 01/07/17 16:25 O2 Sat by Pulse Oximetry 94 01/07/17 16:25 Temperature 98.2 F 01/07/17 16:25 Pulse Rate 74 01/07/17 17:08 Respiratory Rate 18 01/07/17 17:08 Blood Pressure 162/66 01/07/17 16:25 O2 Sat by Pulse Oximetry 99 01/07/17 17:08 Oxygen Delivery Oxygen Delivery Bipap Shortness of Breath/Dyspnea - MDM Narrative Medical decision making narrative: Fluid overload, increased work of breathing, CHF exacerbation - Medical Records Medical records reviewed: Yes I reviewed the patient's medical records. - Lab Data Lab results reviewed: Yes I reviewed the patient's lab results. Result diagrams: 01/07/17 16:53 01/07/17 16:53 Lab Results 01/07/17 01/07/17 01/07/17 Range/Units 16:53 16:53 16:53 WBC 9.8 (4.3-11.1) K/mcL RBC 3.07 L (4.19-5.50) M/mcL Hgb 9.8 L (12.9-16.9) g/dL Hct 31.2 L (37.5-50.1) % MCV 101.6 H (83.0-100.0) fL MCH 31.9 (28.0-33.3) pg MCHC 31.4 L (31.6-35.5) g/dL RDW 12.7 (11.5-14.5) % Plt Count 216 (140-400) K/mcL MPV 10.6 (9.4-12.4) fL Immature Gran % 1.0 (0-4) % Seg Neutrophils % 89.4 % Lymphocytes % 4.8 % Monocytes % 4.6 % Eosinophils % 0.1 % Basophils % 0.1 % Neutrophils # 8.8 (1.6-8.9) K/mcL Lymphocytes # 0.5 L (0.6-4.6) K/mcL Monocytes # 0.5 (0.0-1.3) K/mcL Eosinophils # 0.0 (0.0-0.6) K/mcL Basophils # 0.0 (0.0-0.2) K/mcL Sodium 138 (136-145) mEq/L Potassium 5.0 H (3.5-4.5) mEq/L Chloride 97 L (98-109) mEq/L Carbon Dioxide 33 H (19-29) mEq/L BUN 39 H (8-26) mg/dL Creatinine 1.73 H (0.72-1.25) mg/dL Est GFR ( Amer) 46 L (> 60) Est GFR (Non-Af Amer) 38 L (> 60) BUN/Creatinine Ratio 23 (6-26) Glucose 192 H (70-99) mg/dL Calculated Osmolality 301 H (280-300) Lactic Acid 1.8 (0.5-2.2) mmol/L Calcium 8.8 (8.6-10.8) mg/dL Troponin I (0-0.03) ng/mL B-Natriuretic Peptide (0-100) pg/mL 01/07/17 01/07/17 Range/Units 16:53 16:53 WBC (4.3-11.1) K/mcL RBC (4.19-5.50) M/mcL Hgb (12.9-16.9) g/dL Hct (37.5-50.1) % MCV (83.0-100.0) fL MCH (28.0-33.3) pg MCHC (31.6-35.5) g/dL RDW (11.5-14.5) % Plt Count (140-400) K/mcL MPV (9.4-12.4) fL Immature Gran % (0-4) % Seg Neutrophils % % Lymphocytes % % Monocytes % % Eosinophils % % Basophils % % Neutrophils # (1.6-8.9) K/mcL Lymphocytes # (0.6-4.6) K/mcL Monocytes # (0.0-1.3) K/mcL Eosinophils # (0.0-0.6) K/mcL Basophils # (0.0-0.2) K/mcL Sodium (136-145) mEq/L Potassium (3.5-4.5) mEq/L Chloride (98-109) mEq/L Carbon Dioxide (19-29) mEq/L BUN (8-26) mg/dL Creatinine (0.72-1.25) mg/dL Est GFR ( Amer) (> 60) Est GFR (Non-Af Amer) (> 60) BUN/Creatinine Ratio (6-26) Glucose (70-99) mg/dL Calculated Osmolality (280-300) Lactic Acid (0.5-2.2) mmol/L Calcium (8.6-10.8) mg/dL Troponin I 0.07 H* (0-0.03) ng/mL B-Natriuretic Peptide 180 H (0-100) pg/mL - Radiology Data Radiology results reviewed: Yes I reviewed the patient's radiology results. Chest x-ray shows left lower lobe atelectasis no other acute pulmonary pathology - EKG Data EKG attestation: Yes I reviewed and interpreted this EKG. EKG shows normal: Reports: sinus rhythm, axis, intervals, QRS complexes, ST-T waves Rate: Reports: normal Rhythm: Reports: NSR [place]/QRS: Reports: normal When compared to previous EKG there are: no significant changes Interpretation: Reports: no acute changes, unchanged when compared to prior tracing (date) (4/3/17) Critical Care Time Critical Care Time: Yes Total Critical Care Time: 30 Attestation: Independent of medical management and intervention
[2017-01-07 17:02] LABS: Basophils % 0.1 %; Eosinophils % 0.1 %; Hematocrit 31.2 % (37.5-50.1); Hemoglobin 9.8 g/dL (12.9-16.9); Lymphocytes # 0.5 K/mcL (0.6-4.6); Lymphocytes % 4.8 %; Mean Corpuscular HGB Conc 31.4 g/dL (31.6-35.5); Mean Corpuscular Hemoglobin 31.9 pg (28.0-33.3); Mean Corpuscular Volume 101.6 fL (83.0-100.0); Mean Platelet Volume 10.6 fL (9.4-12.4); Monocytes # 0.5 K/mcL (0.0-1.3); Monocytes % 4.6 %; Neutrophils # 8.8 K/mcL (1.6-8.9); Platelet Count 216 K/mcL (140-400); Red Blood Count 3.07 M/mcL (4.19-5.50); Red Cell Distribution Width 12.7 % (11.5-14.5); Segmented Neutrophils % 89.4 %
[2017-01-07 17:14] LABS: Calcium 8.8 mg/dL (8.6-10.8)
[2017-01-07 17:53] LABS: Prothrombin Time 10.5 Seconds (9.4-12.1)
[2017-01-07] MEDS ORDERED: Ondansetron 4 MG/2 ML VIAL IVP PRN (18:28)
--- NOTE | 2017-01-07 18:39 | Internal Med History&Physical ---
<Thu Johnson - Last Filed: 01/07/17 21:54> Date of Encounter: 01/07/17 Time of Encounter: 18:00 Assessment and Plan (1) Acute on chronic respiratory failure Current visit: Yes Status: Acute 1 patient's been extensively increasing shortness of breath requiring oxygen supplementation. On presentation to the ER saturation 94% mild respiratory distress placed on BiPAP. We will continue with BiPAP titrating oxygen maintain SPO2 greater than 92% 2 suspect respiratory failure related to fluid overload. We will continue with IV Lasix 3 bronchodilators as needed Qualifiers: Respiratory failure complication: hypoxia Qualified Code(s): J96.21 - Acute and chronic respiratory failure with hypoxia (2) CHF exacerbation Current visit: Yes Status: Acute 1 patient's been experiencing increasing shortness of breath he does complain of increasing edema as well as weight gain. BNP is 180 which is actually down from previous which was 438, x-ray demonstrates right atelectasis. We will continue with IV Lasix 2 monitor intake and output daily weights 3 low-sodium diet 4 oxygen as needed to maintain SPO2 greater than 92% Qualifiers: Congestive heart failure type: diastolic Qualified Code(s): I50.33 - Acute on chronic diastolic (congestive) heart failure (3) Acute on chronic renal failure Current visit: No Status: Acute 1 patient has history of CKD disease stage III creatinine today is 1.73. He is around 1.5. We will continue to monitor creatinine-suspect this is related to CHF exacerbation 2 monitor intake and daily weights 3 avoid nephrotoxins (4) CAD (coronary artery disease) Current visit: No Status: Chronic 1 we will continue with patient's beta estrella,Imdur statin will hold these for now due to elevation in creatinine and resume once back to baseline 2 nitroglycerin as needed for chest pain oxygen as needed and maintain SPO2 greater than 92% Qualifiers: Coronary Disease-Associated Artery/Lesion type: [place] artery [place] vs. transplanted heart: [place] heart Associated angina: without angina Qualified Code(s): I25.10 - Atherosclerotic heart disease of [place] coronary artery without angina pectoris (5) Hypothyroidism Current visit: No Status: Chronic 1 continue with Synthroid Qualifiers: Hypothyroidism type: unspecified Qualified Code(s): E03.9 - Hypothyroidism , unspecified (6) Non-insulin dependent type 2 diabetes mellitus Current visit: No Status: Chronic 1 we will hold oral antidiabetics for now Accu-Cheks before meals and at bedtime with sliding scale insulin for coverage 2 diabetic diet (7) COPD (chronic obstructive pulmonary disease) Current visit: No Status: Chronic Patient has chronic history of COPD presently not in exacerbation. We will continue with BiPAP and titrate to maintain S3 to greater 90% 2 patient is on chronic steroids at home we will continue 3 continue bronchodilators Qualifiers: COPD type: emphysema Emphysema type: unspecified Qualified Code(s): J43.9 - Emphysema, unspecified (8) DVT prophylaxis Current visit: No Status: Acute 1 [facility] Internal Medicine - H&P: HPI Chief complaint: SOB History of present illness: Mr. Baldwin is a 86 year old male past history of coronary disease ID diastolic heart failure EF 60% COPD on home oxygen diabetes type 2 hypertension hypothyroidism CK D stage III valvular heart disease. She resides in assisted living facility he has been experiencing increase in shortness of breath over the last several days. He has not been able to perform daily activities without experiencing increasing shortness of breath. Also experiencing lower extremity edema and he states approximate 3 pound weight gain over the past few days. He states that his diuretic was recently changed and he feels that he has not been urinating as much as he should. He is on home oxygen at 2 L which provides little relief. He denies any chest pain fevers chills nausea vomiting he does have a cough which is nonproductive. He denies any sick contacts. He was brought to the ER for evaluation criteria records on presentation patient's oxygen saturation was 94% he was placed on 2 L nasal cannula he continued to experience labored breathing. She was placed on BiPAP and given 40 of Lasix. Respiratory status improved. Chest x-ray revealed right lower lobe atelectasis lab work BNP of 180 troponins 0.07 creatinine is 1.73 potassium was 5. Patient has been admitted for further work up evaluation. Presently patient is not. VNA respiratory distress he is on BiPAP oxygen saturation is 99% he is sinus rhythm on the monitor lung sounds with scattered rhonchi throughout heart sounds with S1-S2 no rubs gallops clicks or murmurs noted patient does have +1 pitting edema to lower extremities no JVD noted. Presently the patient appears to be hemodynamically stable. I reviewed this case with Dr. Conde who agrees with plan Past Med Surg Social Fam HX - Past Medical History Medical history: arthritis, CHF, COPD, coronary artery disease, diabetes, GERD, hyperlipidemia, hypertension, myocardial infarction, renal disease, thyroid disease, syncope, valvular heart disease, other Psychiatric history: no psych history, other - Past Surgical History Surgical History: other - Social History Smoking Status: Former smoker Smokeless Tobacco Status: No Alcohol use: occasionally Drug use: none - Family History Mother Family Member Ethnicity: Non- Living Status: Hx Family Cardiac Disorders: No Hx Family Respiratory Disorders: No Hx Family Cancer: No Hx Family GI Disorders: No Hx Family Endocrine Disorder: Yes (DM2) Hx Family Neuromuscular Disorders: No Hx Family Neurologic Disorders: No Hx Family HEENT Disorders: No Hx Family Autoimmune Disorders: No Internal Medicine - H&P: Meds Gabapentin [Neurontin] 100 mg PO TID 03/15/16 [History] GlipiZIDE [Glucotrol] 2.5 mg PO BIDWM 03/15/16 [History] Isosorbide MONOnitrate (24 HR) [Imdur] 30 mg PO DAILY 03/15/16 [History] Omeprazole [PriLOSEC] 20 mg PO BIDAC 03/15/16 [History] Tamsulosin [Flomax] 0.4 mg PO HS capsule 04/15/16 [Rx] Acetaminophen [Tylenol] 975 mg PO TID PRN 12/03/16 [History] Ferrous Gluconate 324 mg PO DAILY 12/03/16 [History] Magnesium Oxide [Magnesium] 400 mg PO DAILY 12/03/16 [History] Multivitamin [Multivitamins] 1 cap PO DAILY 12/03/16 [History] Polyethylene Glycol 3350 [Smoothlax] 17 gm PO BID PRN 12/03/16 [History] Atenolol [Tenormin] 50 mg PO HS 12/20/16 [History] Levothyroxine [Synthroid] 50 mcg PO QAM 12/20/16 [History] Lisinopril [Zestril] 20 mg PO DAILY 12/20/16 [History] PredniSONE 20 mg PO DAILY 12/20/16 [History] Atorvastatin [Lipitor] 10 mg PO HS 01/07/17 [History] Carbamide Peroxide [Ear Drops] 15 ml BOTH EARS DAILY 01/07/17 [History] Guaifenesin [Tussin] 300 mg PO TID PRN 01/07/17 [History] Lidocaine 1 appl TP TID PRN 01/07/17 [History] Loperamide [Imodium] 4 mg PO Q6H PRN 01/07/17 [History] Oxycodone HCl [Oxaydo] 5 mg PO Q8H PRN 01/07/17 [History] Torsemide [Demadex] 20 mg PO BID 01/07/17 [History] Allergies hydrochlorothiazide Allergy (Verified 12/20/16 21:33) See Comments All Systems PM: A 10-system review of systems was performed and is negative for pertinent findings except as documented above in the HPI. - Constitutional Constitutional: weakness, weight gain - Cardiovascular Cardiovascular ROS IM: dyspnea, edema, no chest pain, no diaphoresis, no lightheadedness, no palpitations, no syncope - Respiratory Respiratory: cough, dyspnea on exertion - Gastrointestinal Gastrointestinal: no abdominal pain, no diarrhea, no hematemesis, no hematochezia, no melena, no nausea, no vomiting - Musculoskeletal Musculoskeletal ROS IM: no numbness, no tingling - Integumentary Integumentary IM: no rash, no unusual bruising - Neurological Neurological ROS: no confusion, no convulsions, no focal weakness, no numbness, no tingling, no tremor(s) - Constitutional Vitals: Temp Pulse Resp BP Pulse Ox 98.2 F 73 14 147/73 98 01/07/17 16:25 01/07/17 18:14 01/07/17 18:25 01/07/17 18:25 01/07/17 18:14 General appearance: Present: A&O X 3, answers questions appropriately - Head Head exam: Present: atraumatic, normocephalic - Neck Neck exam general surgery: Present: supple, trachea midline. Absent: lymphadenopathy - Respiratory Respiratory exam: Present: rhonchi. Absent: accessory muscle use, rales, wheezes - Cardiovascular Cardiovascular exam: Present: RRR, +S1, +S2. Absent: diastolic murmur, gallop, rubs, systolic murmur - Extremities Exam Extremities exam: Present: pedal edema, warm, radial pulses palpable and symetrical. Absent: calf tenderness, cyanotic - Neurological Exam Neurological exam: Present: CN II-XII intact, oriented X3, no focal deficits. Absent: pronater drift, facial droop, speech deficit Internal Med - H&P Results - Labs CBC & Chem 7: 01/07/17 16:53 01/07/17 16:53 - EKG Data EKG shows normal: sinus rhythm Rate: normal - EKG Data Prior EKG available for review: yes When compared to previous EKG: there is no significant change - Diagnostic Studies Other Images Additional comments: Chest X-Ray 01/07/17 16:25 IMPRESSION: Left base atelectasis. D/ / German Sesay MD / German Sesay MD Interpreting Provider: German Sesay MD <Joanie Conde - Last Filed: 01/07/17 23:22> Date of Encounter: 01/07/17 Internal Medicine - H&P: HPI History of present illness: Mr. Baldwin is a 86 year old male All Systems PM: A 10-system review of systems was performed and is negative for pertinent findings except as documented above in the HPI. - Constitutional Vitals: Temp Pulse Resp BP Pulse Ox 98.2 F 73 16 171/82 100 01/07/17 20:20 01/07/17 20:20 01/07/17 20:20 01/07/17 22:54 01/07/17 20:20 Internal Med - H&P Results - Labs CBC & Chem 7: 01/07/17 16:53 01/07/17 16:53 Labs: Urine 01/07/17 Range/Units 19:26 Urine Color Yellow (Yellow) Urine Clarity Clear (Clear) Urine pH 7.5 (5.0-8.0) pH Units Ur Specific [place] 1.008 L (1.010-1.025) Urine Protein Negative (Neg-Trace) mg/dL Urine Glucose (UA) Normal (Normal) mg/dL - Attending Attestation I performed history and physical examination of the patient and discussed management with HURL SHAKER/ANP. I reviewed the HURL SHAKER/ANPs note and agree with the documented findings and plan of care. 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 O/E: Lungs: CTA; B/L leg swelling; extensive bruising of the hands EKG personally reviewed by me shows sinus rhythm, poor R-wave progression chest leads. CXR personally reviewed by me shows vascular congestion. Labs show BNP of 180, troponin 0.07, creatinine 1.73, potassium 5 A/P: Acute exacerbation of CHF with preserved EF: Treated with intravenous Lasix , low sodium diet, monitor intake /output Acute on chronic respiratory failure: Likely due to CHF exacerbation. Patient is on BiPAP therapy. Continue diuresis. Atelectasis: Start incentive spirometer CKD / hyperkalemia: Hold ACEI, kayexalate.
[2017-01-07] MEDS ORDERED: Dextrose Gel 15 GM PO PRN ×2 (19:18)
[2017-01-07] MEDS ORDERED: *HR* Dextrose 50 % in Water (Syg) 50 ML SYRINGE IVP PRN (19:18)
[2017-01-07] MEDS ORDERED: D5% in Water 1,000 ML IVC PRN (19:18)
[2017-01-07] MEDS ORDERED: Albuterol 2.5 MG/3 ML NEBULIZER IH PRN (19:19)
[2017-01-07 19:36] LABS: Bilirubin,Urine Negative (Negative); Blood,Urine Negative (Negative); Clarity,Urine Clear (Clear); Color,Urine Yellow (Yellow); Glucose,Urine (UA) Normal (Normal); Ketones,Urine Negative (Negative); Leukocyte Esterase,Urine Negative (Negative); Nitrite,Urine Negative (Negative); PH,Urine 7.5 pH Units (5.0-8.0); Protein,Urine Negative (Neg-Trace); Specific Gravity,Urine 1.008 (1.010-1.025); Urobilinogen,Urine Normal (Normal)
[2017-01-07] MEDS: Insulin LISPRO 300 UNITS/3 ML VIAL SQ SCH (21:20)
[2017-01-07] MEDS: Gabapentin 100 MG CAPSULE PO SCH (21:21)
[2017-01-08] MEDS: *HR* Heparin 5,000 UNIT/ML VIAL SQ SCH ×2 (05:23→18:14)
[2017-01-08 06:17] LABS: Basophils % 0.1 %; Eosinophils # 0.1 K/mcL (0.0-0.6); Eosinophils % 0.9 %; Hematocrit 31.9 % (37.5-50.1); Hemoglobin 10.3 g/dL (12.9-16.9); Immature Granulocytes % 0.7 % (0-4); Lymphocytes % 10.9 %; Mean Corpuscular HGB Conc 32.3 g/dL (31.6-35.5); Mean Corpuscular Hemoglobin 32.8 pg (28.0-33.3); Mean Corpuscular Volume 101.6 fL (83.0-100.0); Mean Platelet Volume 11.1 fL (9.4-12.4); Monocytes # 0.9 K/mcL (0.0-1.3); Neutrophils # 6.9 K/mcL (1.6-8.9); Platelet Count 204 K/mcL (140-400); Red Blood Count 3.14 M/mcL (4.19-5.50); Red Cell Distribution Width 12.6 % (11.5-14.5); Segmented Neutrophils % 77.4 %
[2017-01-08] MEDS ORDERED: NON-FORMULARY MEDICATION 1 EACH EACH (Oxycodone Hcl [Oxaydo] 5 MG) PO PRN (06:36)
[2017-01-08] MEDS ORDERED: GuaiFENesin Liq 200 MG/10 ML UDC PO PRN (06:36)
[2017-01-08 06:37] LABS: BUN/Creatinine Ratio 24 (6-26); Blood Urea Nitrogen 32 mg/dL (8-26); Calcium 8.9 mg/dL (8.6-10.8); Carbon Dioxide 36 mEq/L (19-29); Chloride 97 mEq/L (98-109); Glucose 86 mg/dL (70-99); Magnesium 2.1 mg/dL (1.6-2.6); Osmolality,Calculated 302 (280-300); Sodium 143 mEq/L (136-145); eGFR For African Americans > 60 (> 60); eGFR For Non-African Americans 51 (> 60)
[2017-01-08] MEDS ORDERED: *HR* Labetalol 20 MG/4 ML SYRINGE IVP ONE ×2 (06:37→06:50)
[2017-01-08 06:38] LABS: Potassium 3.8 mEq/L (3.5-4.5)
[2017-01-08] MEDS: *HR* OxyCODONE Immed Rel 5 MG TABLET PO PRN ×2 (06:55→15:59)
[2017-01-08] MEDS: Insulin LISPRO 300 UNITS/3 ML VIAL SQ SCH ×4 (07:35→20:38)
[2017-01-08] MEDS: Multivit/Ca/Min/Fe/FA 1 TAB TABLET PO SCH (08:03)
[2017-01-08] MEDS: Isosorbide MONOnitrate (24 HR) 30 MG TAB.ER.24H PO SCH (08:03)
[2017-01-08] MEDS: Gabapentin 100 MG CAPSULE PO SCH ×3 (08:03→20:40)
[2017-01-08] MEDS ORDERED: Furosemide 40 MG/4 ML VIAL IVP SCH (09:00)
[2017-01-08] MEDS ORDERED: Lisinopril 20 MG TABLET PO SCH (09:00)
[2017-01-08] MEDS ORDERED: predniSONE 20 MG TABLET PO SCH (09:00)
[2017-01-08] MEDS: Magnesium Oxide 400 MG TABLET PO SCH (09:03)
--- NOTE | 2017-01-08 09:45 | Internal Med Progress Note ---
<Marv Cloud - Last Filed: 01/08/17 12:34> Date of Encounter: 01/08/17 Time of Encounter: 09:10 - Assessment and plan (1) (HFpEF) heart failure with preserved ejection fraction Current Visit: Yes Status: Acute Assessment and plan: Per last echo 04/2016: EF 60%, would have repeat limited echo 11/2016 with aortic valve not well visualized. Probable difficulty with daily fluid and salt guidelines, he is unclear on recommended daily limits. Advised to keep LE elevated, he has wraps as well. Cont Lasix 40mg IV, monitoring renal function, will increase to BID. Consideration of VHD, aortic stenosis, with 3/6 AMINA on exam. If no clinical improvement on current regimen, would send for ASHOK on Tuesday to evaluate extent of aortic stenosis. (2) Aortic stenosis Current Visit: No Status: Chronic Assessment and plan: Unclear etiology, does have h/o HTN limited echo 11/2016 with aortic valve not well visualized. Lisinopril held, both for renal dysfunction as well as preserving afterload to perfuse coronary arteries. Consider ASHOK on Tuesday. Qualifiers: Cardiac valve disease etiology: etiology unspecified Qualified Code(s): I35.0 - Nonrheumatic aortic (valve) stenosis (3) COPD exacerbation Current Visit: Yes Status: Acute Assessment and plan: CXR with left basilar atelectasis, also unclear of contribution of CHF. Afebrile, no leukocytosis, will hold off on abx at this time. He does have daily prednisone 20mg PO QD, will increase to 40mg PO QD. (4) Anemia Current Visit: Yes Status: Acute Assessment and plan: Macrocytic, will send for MMA, Folate studies. Start on Folate and B-12 supplements. Consideration of superimposed hemolytic anemia, ie Heyde syndrome with acquired von Willebrand deficiency from severe aortic stenosis. No signs of active bleed. Qualifiers: Anemia type: unspecified type Qualified Code(s): D64.9 - Anemia, unspecified (5) CKD (chronic kidney disease) stage 3, GFR 30-59 ml/min Current Visit: No Status: Chronic Assessment and plan: Steady, baseline SCr 1.4-1.5 Today SCr 1.3, but likely dilutional as he is clinically volume overloaded. (6) CAD (coronary artery disease) Current Visit: No Status: Chronic Assessment and plan: Cont ASA Statin BB Qualifiers: Coronary Disease-Associated Artery/Lesion type: [place] artery [place] vs. transplanted heart: [place] heart Associated angina: without angina Qualified Code(s): I25.10 - Atherosclerotic heart disease of [place] coronary artery without angina pectoris (7) Troponin level elevated Current Visit: No Status: Acute Assessment and plan: Adynamic with peak 0.10, in setting of HTN, CHF exacerbation, and aortic stenosis. (8) DVT prophylaxis Current Visit: No Status: Acute Assessment and plan: Hep 5000 U SC BID - Subjective Interval history: Pt seen/eval, he would be sitting up. Endorses chronic orthopnea. He does affirm heavy exertion would need to catch his breath, no dizziness, palpitations , lightheadedness or visual changes. From [facility]. When inquiring of his diet, he states he eats everything, is not sure of his salt and fluid daily guidelines. - Constitutional Vitals: Temp Pulse Resp BP Pulse Ox 98.1 F 77 16 183/85 100 01/08/17 04:00 01/08/17 04:00 01/08/17 04:00 01/08/17 04:00 01/08/17 04:00 General appearance: Present: A&O X 3, answers questions appropriately - Head Head exam: Present: atraumatic, normocephalic - Eye Eye exam: Present: EOMI, sclera anicteric - ENT ENT exam: Present: mucous membranes moist - Neck Neck exam general surgery: Present: supple, trachea midline - Respiratory Respiratory exam: Present: decreased breath sounds (2* habitus), rhonchi (scant) . Absent: wheezes - Cardiovascular Cardiovascular exam: Present: +S1, +S2, systolic murmur (3/6 AMINA c/w Aortic Stenosis). Absent: JVD - GI/Abdominal GI/Abdominal exam: Present: soft, no peritoneal signs. Absent: tenderness - Extremities Exam Extremities exam: Present: pedal edema (has compression wraps on), warm, radial pulses palpable and symetrical - Neurological Exam Neurological exam: Absent: facial droop, speech deficit Internal Medicine: Result - Labs CBC & Chem 7: 01/08/17 05:22 01/08/17 05:22 Labs: Short CBC 01/07/17 01/07/17 01/07/17 Range/Units 19:26 20:23 23:10 WBC (4.3-11.1) K/mcL RBC (4.19-5.50) M/mcL Hgb (12.9-16.9) g/dL Hct (37.5-50.1) % MCV (83.0-100.0) fL MCH (28.0-33.3) pg MCHC (31.6-35.5) g/dL RDW (11.5-14.5) % Plt Count (140-400) K/mcL MPV (9.4-12.4) fL Immature Gran % (0-4) % Seg Neutrophils % % Lymphocytes % % Monocytes % % Eosinophils % % Basophils % % Neutrophils # (1.6-8.9) K/mcL Lymphocytes # (0.6-4.6) K/mcL Monocytes # (0.0-1.3) K/mcL Eosinophils # (0.0-0.6) K/mcL Basophils # (0.0-0.2) K/mcL Sodium (136-145) mEq/L Potassium (3.5-4.5) mEq/L Chloride (98-109) mEq/L Carbon Dioxide (19-29) mEq/L BUN (8-26) mg/dL Creatinine (0.72-1.25) mg/dL Est GFR ( Amer) (> 60) Est GFR (Non-Af Amer) (> 60) BUN/Creatinine Ratio (6-26) Glucose (70-99) mg/dL POC Glucose 132 H (58-89) Calculated Osmolality (280-300) Calcium (8.6-10.8) mg/dL Magnesium (1.6-2.6) mg/dL Troponin I 0.09 H* (0-0.03) ng/mL Urine Color Yellow (Yellow) Urine Clarity Clear (Clear) Urine pH 7.5 (5.0-8.0) pH Units Ur Specific [place] 1.008 L (1.010-1.025) Urine Protein Negative (Neg-Trace) mg/dL Urine Glucose (UA) Normal (Normal) mg/dL Urine Ketones Negative (Negative) mg/dL Urine Blood Negative (Negative) Urine Nitrite Negative (Negative) Urine Bilirubin Negative (Negative) Urine Urobilinogen Normal (Normal) mg/dL Ur Leukocyte Esterase Negative (Negative) Ur Culture Indicated? NO (NO) 04/22/17 04/22/17 04/22/17 Range/Units 05:22 05:22 05:22 WBC 8.8 (4.3-11.1) K/mcL RBC 3.14 L (4.19-5.50) M/mcL Hgb 10.3 L (12.9-16.9) g/dL Hct 31.9 L (37.5-50.1) % MCV 101.6 H (83.0-100.0) fL MCH 32.8 (28.0-33.3) pg MCHC 32.3 (31.6-35.5) g/dL RDW 12.6 (11.5-14.5) % Plt Count 204 (140-400) K/mcL MPV 11.1 (9.4-12.4) fL Immature Gran % 0.7 (0-4) % Seg Neutrophils % 77.4 % Lymphocytes % 10.9 % Monocytes % 10.0 % Eosinophils % 0.9 % Basophils % 0.1 % Neutrophils # 6.9 (1.6-8.9) K/mcL Lymphocytes # 1.0 (0.6-4.6) K/mcL Monocytes # 0.9 (0.0-1.3) K/mcL Eosinophils # 0.1 (0.0-0.6) K/mcL Basophils # 0.0 (0.0-0.2) K/mcL Sodium 143 (136-145) mEq/L Potassium 3.8 D (3.5-4.5) mEq/L Chloride 97 L (98-109) mEq/L Carbon Dioxide 36 H (19-29) mEq/L BUN 32 H (8-26) mg/dL Creatinine 1.32 H (0.72-1.25) mg/dL Est GFR ( Amer) > 60 (> 60) Est GFR (Non-Af Amer) 51 L (> 60) BUN/Creatinine Ratio 24 (6-26) Glucose 86 (70-99) mg/dL POC Glucose (58-89) Calculated Osmolality 302 H (280-300) Calcium 8.9 (8.6-10.8) mg/dL Magnesium 2.1 (1.6-2.6) mg/dL Troponin I 0.10 H* (0-0.03) ng/mL Urine Color (Yellow) Urine Clarity (Clear) Urine pH (5.0-8.0) pH Units Ur Specific [place] (1.010-1.025) Urine Protein (Neg-Trace) mg/dL Urine Glucose (UA) (Normal) mg/dL Urine Ketones (Negative) mg/dL Urine Blood (Negative) Urine Nitrite (Negative) Urine Bilirubin (Negative) Urine Urobilinogen (Normal) mg/dL Ur Leukocyte Esterase (Negative) Ur Culture Indicated? (NO) BMP 01/08/17 05:22 Sodium 143 Potassium 3.8 D Chloride 97 L Carbon Dioxide 36 H BUN 32 H Creatinine 1.32 H Glucose 86 Calcium 8.9 Cardiac Enzymes 01/07/17 01/08/17 Range/Units 23:10 05:22 Troponin I 0.09 H* 0.10 H* (0-0.03) ng/mL Urine 01/07/17 Range/Units 19:26 Urine Color Yellow (Yellow) Urine Clarity Clear (Clear) Urine pH 7.5 (5.0-8.0) pH Units Ur Specific [place] 1.008 L (1.010-1.025) Urine Protein Negative (Neg-Trace) mg/dL Urine Glucose (UA) Normal (Normal) mg/dL - ABG Interpretation ABG results: PT/INR, D-dimer PT 10.5 Seconds (9.4-12.1) 01/07/17 16:53 Consult Discharge Plan - Plan [facility]errals[facility]Primary Care Provider[facility] - <Ganesh Headley - Last Filed: 01/08/17 17:51> Date of Encounter: 01/08/17 - Assessment and plan (1) Acute on chronic respiratory failure Current Visit: Yes Status: Acute Assessment and plan: Continue oxygen and treatment of underlying issues. Qualifiers: Respiratory failure complication: hypoxia Qualified Code(s): J96.21 - Acute and chronic respiratory failure with hypoxia (2) CHF exacerbation Current Visit: Yes Status: Acute Assessment and plan: Diurese and supportive care. Seems to be slowly improving. Qualifiers: Congestive heart failure type: diastolic Qualified Code(s): I50.33 - Acute on chronic diastolic (congestive) heart failure (3) THOMPSON (acute kidney injury) Current Visit: No Status: Acute (4) CKD (chronic kidney disease) stage 3, GFR 30-59 ml/min Current Visit: No Status: Chronic (5) CAD (coronary artery disease) Current Visit: No Status: Chronic Qualifiers: Coronary Disease-Associated Artery/Lesion type: [place] artery [place] vs. transplanted heart: [place] heart Associated angina: without angina Qualified Code(s): I25.10 - Atherosclerotic heart disease of [place] coronary artery without angina pectoris (6) Aortic stenosis Current Visit: No Status: Suspected Qualifiers: Cardiac valve disease etiology: etiology unspecified Qualified Code(s): I35.0 - Nonrheumatic aortic (valve) stenosis (7) Hypothyroidism Current Visit: No Status: Chronic Qualifiers: Hypothyroidism type: acquired Qualified Code(s): E03.9 - Hypothyroidism, unspecified (8) Non-insulin dependent type 2 diabetes mellitus Current Visit: No Status: Chronic - Constitutional Vitals: Temp Pulse Resp BP Pulse Ox 98.4 F 82 16 147/66 95 01/08/17 15:35 01/08/17 15:35 01/08/17 15:35 01/08/17 15:35 01/08/17 15:35 Internal Medicine: Result - Labs CBC & Chem 7: 01/08/17 05:22 01/08/17 05:22 Labs: Short CBC 01/08/17 Range/Units 05:22 WBC 8.8 (4.3-11.1) K/mcL Hgb 10.3 L (12.9-16.9) g/dL Hct 31.9 L (37.5-50.1) % Plt Count 204 (140-400) K/mcL Neutrophils # 6.9 (1.6-8.9) K/mcL BMP 01/08/17 05:22 Sodium 143 Potassium 3.8 D Chloride 97 L Carbon Dioxide 36 H BUN 32 H Creatinine 1.32 H Glucose 86 Calcium 8.9 Cardiac Enzymes 01/07/17 01/08/17 Range/Units 23:10 05:22 Troponin I 0.09 H* 0.10 H* (0-0.03) ng/mL Urine 01/07/17 Range/Units 19:26 Urine Color Yellow (Yellow) Urine Clarity Clear (Clear) Urine pH 7.5 (5.0-8.0) pH Units Ur Specific [place] 1.008 L (1.010-1.025) Urine Protein Negative (Neg-Trace) mg/dL Urine Glucose (UA) Normal (Normal) mg/dL - ABG Interpretation ABG results: PT/INR, D-dimer PT 10.5 Seconds (9.4-12.1) 01/07/17 16:53 - Attending Attestation I examined this patient and my medical decision-making was reviewed with the Resident Physician on 01/08/17. I agree with the documented findings, disposition and treatment plan as described except to the extent set forth below. Mr. Baldwin is currently admitted for acute exac CHF. He is moderate to high risk due to potential for worsening respiratory and cardiac status. Mr. Baldwin is beginning to feel better. No CP. Less SOB. No GI symptoms. Has been receiving Lasix. Exam Alert Comfortable Heart reg with murmur Lung with some rhonchi and wheeze I/P 1. Acute exac chronic diastolic heart failure 2. Aortic stenosis 3. COPD exacerbation Further diagnoses and plan as above.
[2017-01-08] MEDS ORDERED: Chloraseptic Spray 177 ML BOTTLE MM PRN (09:47)
[2017-01-08] MEDS ORDERED: Furosemide 40 MG/4 ML VIAL IVP ONE (18:00)
[2017-01-09] MEDS: *HR* OxyCODONE Immed Rel 5 MG TABLET PO PRN ×2 (00:08→15:07)
[2017-01-09] MEDS: Lidocaine OINT 35.44 GM TUBE TP PRN (01:56)
[2017-01-09] MEDS ORDERED: *HR* Labetalol 20 MG/4 ML SYRINGE IVP ONE (04:15)
[2017-01-09] MEDS: *HR* Heparin 5,000 UNIT/ML VIAL SQ SCH ×2 (05:55→17:04)
[2017-01-09 06:30] LABS: Basophils % 0.1 %; Eosinophils # 0.1 K/mcL (0.0-0.6); Eosinophils % 0.9 %; Hematocrit 32.2 % (37.5-50.1); Immature Granulocytes % 0.8 % (0-4); Immature Platelets 5.2 % (1.1-6.1); Lymphocytes # 1.1 K/mcL (0.6-4.6); Lymphocytes % 12.8 %; Mean Corpuscular HGB Conc 31.1 g/dL (31.6-35.5); Mean Corpuscular Hemoglobin 31.5 pg (28.0-33.3); Mean Corpuscular Volume 101.6 fL (83.0-100.0); Mean Platelet Volume 10.4 fL (9.4-12.4); Monocytes # 0.8 K/mcL (0.0-1.3); Monocytes % 9.5 %; Neutrophils # 6.5 K/mcL (1.6-8.9); Nucleated Red Blood Cells 0.2 /100 WBC (0); Platelet Count 208 K/mcL (140-400); Red Blood Count 3.17 M/mcL (4.19-5.50); Red Cell Distribution Width 12.6 % (11.5-14.5); Segmented Neutrophils % 75.9 %
[2017-01-09 06:41] LABS: BUN/Creatinine Ratio 24 (6-26); Blood Urea Nitrogen 30 mg/dL (8-26); Calcium 8.9 mg/dL (8.6-10.8); Carbon Dioxide 35 mEq/L (19-29); Chloride 96 mEq/L (98-109); Glucose 91 mg/dL (70-99); Lactate Dehydrogenase 284 Units/L (159-327); Magnesium 1.8 mg/dL (1.6-2.6); Osmolality,Calculated 298 (280-300); Potassium 3.8 mEq/L (3.5-4.5); Sodium 141 mEq/L (136-145); eGFR For African Americans > 60 (> 60); eGFR For Non-African Americans 54 (> 60)
[2017-01-09] MEDS: Aspirin 81 MG TAB.CHEW PO SCH (07:48)
[2017-01-09] MEDS: Magnesium Oxide 400 MG TABLET PO SCH (07:48)
[2017-01-09] MEDS: Isosorbide MONOnitrate (24 HR) 30 MG TAB.ER.24H PO SCH (07:48)
[2017-01-09] MEDS: Gabapentin 100 MG CAPSULE PO SCH ×3 (07:48→20:10)
[2017-01-09] MEDS: Multivit/Ca/Min/Fe/FA 1 TAB TABLET PO SCH (07:48)
[2017-01-09] MEDS: Renal Vitamin 1 MG CAPSULE PO SCH (07:48)
[2017-01-09] MEDS: predniSONE 20 MG TABLET PO SCH (07:48)
[2017-01-09] MEDS ORDERED: Furosemide 40 MG/4 ML VIAL IVP SCH (08:00)
[2017-01-09] MEDS: Insulin LISPRO 300 UNITS/3 ML VIAL SQ SCH ×4 (08:20→20:11)
--- NOTE | 2017-01-09 09:34 | Internal Med Progress Note ---
Addendum entered and electronically signed by Marv Cloud DO 01/09/17 12:38: Added Levaquin monotherapy Original Note: <Marv Cloud - Last Filed: 01/09/17 12:02> Date of Encounter: 01/09/17 Time of Encounter: 08:45 - Assessment and plan (1) (HFpEF) heart failure with preserved ejection fraction Current Visit: Yes Status: Acute Assessment and plan: Per last echo 04/2016: EF 60%, would have repeat limited echo 11/2016 with aortic valve not well visualized. Probable difficulty with daily fluid and salt guidelines, he is unclear on recommended daily limits. Advised to keep LE elevated, he has wraps as well. Cont Lasix 40mg IV, monitoring renal function, will increase to BID. Consideration of VHD, aortic stenosis, with 3/6 AMINA on exam. 01/09 Net -3.2L since admission ASHOK on Tuesday to evaluate extent of aortic stenosis. (2) Aortic stenosis Current Visit: No Status: Suspected Assessment and plan: Unclear etiology, does have h/o HTN limited echo 11/2016 with aortic valve not well visualized. Lisinopril held, both for renal dysfunction as well as preserving afterload to perfuse coronary arteries. Order ASHOK on Tuesday. Qualifiers: Cardiac valve disease etiology: etiology unspecified Qualified Code(s): I35.0 - Nonrheumatic aortic (valve) stenosis (3) COPD exacerbation Current Visit: Yes Status: Acute Assessment and plan: CXR with left basilar atelectasis, also unclear of contribution of CHF. Afebrile, no leukocytosis, will hold off on abx at this time. He does have daily prednisone 20mg PO QD, will increase to 40mg PO QD. (4) Anemia Current Visit: Yes Status: Acute Assessment and plan: Macrocytic, will send for MMA, Folate studies. Start on Folate and B-12 supplements. Consideration of superimposed hemolytic anemia, ie Heyde syndrome with acquired von Willebrand deficiency from severe aortic stenosis. No signs of active bleed. Qualifiers: Anemia type: unspecified type Qualified Code(s): D64.9 - Anemia, unspecified (5) CKD (chronic kidney disease) stage 3, GFR 30-59 ml/min Current Visit: No Status: Chronic Assessment and plan: Steady, baseline SCr 1.4-1.5 Today SCr 1.3, but likely dilutional as he is clinically volume overloaded. Improved (6) CAD (coronary artery disease) Current Visit: No Status: Chronic Assessment and plan: Cont ASA Statin BB Qualifiers: Coronary Disease-Associated Artery/Lesion type: [place] artery [place] vs. transplanted heart: [place] heart Associated angina: without angina Qualified Code(s): I25.10 - Atherosclerotic heart disease of [place] coronary artery without angina pectoris (7) Troponin level elevated Current Visit: No Status: Acute Assessment and plan: Adynamic with peak 0.10, in setting of HTN, CHF exacerbation, and aortic stenosis. (8) DVT prophylaxis Current Visit: No Status: Acute Assessment and plan: Hep 5000 U SC BID - Subjective Interval history: Pt seen/eval, is sitting up, daughter at bedside, pt consents to discussion of medical issues with her present. He would have givens cath in place, voices that he has a hard time getting to bathroom. He states he prefers to have givens catheter in. We discussed importance of avoiding givens catheter and risk of UTI. He denies any chest pain/pressure, no fever, chills. Updated pt and family of ASHOK anticipated for Tuesday. He is producing urine, net negative 3.2 L since admission. - Constitutional Vitals: Temp Pulse Resp BP Pulse Ox 97.9 F 72 16 192/83 98 01/09/17 06:56 01/09/17 06:56 01/09/17 06:56 01/09/17 06:56 01/09/17 06:56 General appearance: Present: A&O X 3, answers questions appropriately - Head Head exam: Present: atraumatic, normocephalic - Eye Eye exam: Present: EOMI, sclera anicteric - ENT ENT exam: Present: mucous membranes moist - Neck Neck exam general surgery: Present: supple, trachea midline - Respiratory Respiratory exam: Present: rhonchi (scant basilar). Absent: wheezes, tachypnea - Cardiovascular Cardiovascular exam: Present: +S1, +S2. Absent: JVD Additional comments: 3/5 AMINA c/w Aortic Stenosis - GI/Abdominal GI/Abdominal exam: Present: soft, no peritoneal signs. Absent: tenderness - Extremities Exam Extremities exam: Present: warm, radial pulses palpable and symetrical - Neurological Exam Neurological exam: Absent: facial droop, speech deficit Internal Medicine: Result - Labs CBC & Chem 7: 01/09/17 06:16 01/09/17 06:16 Labs: Short CBC 01/09/17 Range/Units 06:16 WBC 8.6 (4.3-11.1) K/mcL Hgb 10.0 L (12.9-16.9) g/dL Hct 32.2 L (37.5-50.1) % Plt Count 208 (140-400) K/mcL Neutrophils # 6.5 (1.6-8.9) K/mcL BMP 01/09/17 06:16 Sodium 141 Potassium 3.8 Chloride 96 L Carbon Dioxide 35 H BUN 30 H Creatinine 1.27 H Glucose 91 Calcium 8.9 - ABG Interpretation ABG results: PT/INR, D-dimer PT 10.5 Seconds (9.4-12.1) 01/07/17 16:53 - VTE Documentation of Mechanical Device: Graduated compression elastic hosiery Consult Discharge Plan - Plan [facility]errals: [facility] [Primary Care Provider] - <Ganesh Headley - Last Filed: 01/09/17 17:31> Date of Encounter: 01/09/17 - Assessment and plan (1) Acute on chronic respiratory failure Current Visit: Yes Status: Acute Assessment and plan: Continue to wean oxygen as able. Qualifiers: Respiratory failure complication: hypoxia Qualified Code(s): J96.21 - Acute and chronic respiratory failure with hypoxia (2) CHF exacerbation Current Visit: Yes Status: Acute Assessment and plan: Diursing. Qualifiers: Congestive heart failure type: diastolic Qualified Code(s): I50.33 - Acute on chronic diastolic (congestive) heart failure (3) THOMPSON (acute kidney injury) Current Visit: Yes Status: Acute (4) CKD (chronic kidney disease) stage 3, GFR 30-59 ml/min Current Visit: No Status: Chronic (5) CAD (coronary artery disease) Current Visit: Yes Status: Chronic Qualifiers: Coronary Disease-Associated Artery/Lesion type: [place] artery [place] vs. transplanted heart: [place] heart Associated angina: without angina Qualified Code(s): I25.10 - Atherosclerotic heart disease of [place] coronary artery without angina pectoris (6) Aortic stenosis Current Visit: Yes Status: Suspected Qualifiers: Cardiac valve disease etiology: etiology unspecified Qualified Code(s): I35.0 - Nonrheumatic aortic (valve) stenosis (7) Hypothyroidism Current Visit: No Status: Chronic Assessment and plan: Continue supplementation. Qualifiers: Hypothyroidism type: acquired Qualified Code(s): E03.9 - Hypothyroidism, unspecified (8) Non-insulin dependent type 2 diabetes mellitus Current Visit: Yes Status: Chronic Assessment and plan: Continue monitoring and coverage. - Constitutional Vitals: Temp Pulse Resp BP Pulse Ox 97.6 F 72 16 136/58 92 01/09/17 15:34 01/09/17 15:34 01/09/17 15:34 01/09/17 15:34 01/09/17 15:34 Internal Medicine: Result - Labs CBC & Chem 7: 01/09/17 06:16 01/09/17 06:16 Labs: Short CBC 01/09/17 Range/Units 06:16 WBC 8.6 (4.3-11.1) K/mcL Hgb 10.0 L (12.9-16.9) g/dL Hct 32.2 L (37.5-50.1) % Plt Count 208 (140-400) K/mcL Neutrophils # 6.5 (1.6-8.9) K/mcL BMP 01/09/17 06:16 Sodium 141 Potassium 3.8 Chloride 96 L Carbon Dioxide 35 H BUN 30 H Creatinine 1.27 H Glucose 91 Calcium 8.9 - ABG Interpretation ABG results: PT/INR, D-dimer PT 10.5 Seconds (9.4-12.1) 01/07/17 16:53 - Attending Attestation I examined this patient and my medical decision-making was reviewed with the Resident Physician on 01/09/17. I agree with the documented findings, disposition and treatment plan as described except to the extent set forth below. Mr. Baldwin is currently admitted for acute exac CHF and COPD. He is moderate to high risk due to potential for worsening cardiac and resp status. Mr. Baldwin is feeling OK. He is still quite congested in his chest. No fever or chills. No GI symptoms. To have ASHOK tomorrow to evaluate condition of aortic valve. Exam Alert. Comfortable Heart reg Lungs with coarse rhochi Edema persists I/P 1. Acute exac chronic diastolic CHF 2. COPD exac 3. Possible severe Further diagnoses and plan as above.
[2017-01-09 10:47] LABS: % Iron Saturation 34 % (20-55); Iron 66 mcg/dL (65-175); Transferrin 137 mg/dL (174-364)
[2017-01-09 11:08] LABS: Ferritin 251 ng/ml (22-275)
[2017-01-09] MEDS: levoFLOXacin 500 MG TABLET PO SCH (11:48)
--- NOTE | 2017-01-09 20:04 | Electrocardiograph Report ---
[place] [id number] Test Date: 2017-01-07 Pat Name: Daniel Baldwin Department: 103 Room: 2NE19 Gender: M Director Of Athletics: : 1930 Requested By: Henry Lao Order Number: [id number] Reading MD: Gian Lopez MD Measurements Intervals [place] Rate: 84 P: MD: 0 QRS: -17 QRSD: 112 T: 74 QT: 358 QTc: 399 Interpretive Statements SINUS RHYTHM BASELINE ARTIFACT Poor R wave progression Electronically Signed On 01-09-2017 20:03:02 EDT by Gian Lopez MD
[2017-01-10] MEDS ORDERED: *HR* Labetalol 20 MG/4 ML SYRINGE IVP ONE (01:16)
[2017-01-10 04:10] LABS: Basophils % 0.1 %; Eosinophils % 0.2 %; Hematocrit 32.5 % (37.5-50.1); Hemoglobin 10.2 g/dL (12.9-16.9); Immature Granulocytes % 1.6 % (0-4); Lymphocytes # 0.9 K/mcL (0.6-4.6); Lymphocytes % 8.3 %; Mean Corpuscular HGB Conc 31.4 g/dL (31.6-35.5); Mean Corpuscular Hemoglobin 31.8 pg (28.0-33.3); Mean Corpuscular Volume 101.2 fL (83.0-100.0); Mean Platelet Volume 10.9 fL (9.4-12.4); Monocytes # 1.1 K/mcL (0.0-1.3); Monocytes % 10.4 %; Neutrophils # 8.3 K/mcL (1.6-8.9); Platelet Count 219 K/mcL (140-400); Red Blood Count 3.21 M/mcL (4.19-5.50); Red Cell Distribution Width 12.5 % (11.5-14.5); Segmented Neutrophils % 79.4 %
[2017-01-10 04:14] LABS: Calcium 9.1 mg/dL (8.6-10.8); Magnesium 1.9 mg/dL (1.6-2.6); Potassium 4.1 mEq/L (3.5-4.5)
[2017-01-10] MEDS: *HR* Heparin 5,000 UNIT/ML VIAL SQ SCH ×2 (05:55→17:39)
[2017-01-10] MEDS: Lidocaine OINT 35.44 GM TUBE TP PRN (06:00)
[2017-01-10] MEDS: Insulin LISPRO 300 UNITS/3 ML VIAL SQ SCH ×4 (08:01→23:29)
--- NOTE | 2017-01-10 08:07 | Internal Med Progress Note ---
Addendum entered and electronically signed by Marv Cloud DO 01/10/17 13:24: [employer] Dr. Shane discussed with medicine attending Dr. Headley regarding ASHOK - re: aortic stenosis. Discussed that patient has good quality of life, he is functional with ADLs and is agreeable to AV replacement should that be recommended. Dr. Shane to inform cardiology rounding team. Consult order placed. Will hold ASHOK at this time pending cardiology evaluation. Original Note: <Marv Cloud - Last Filed: 01/10/17 08:04> Date of Encounter: 01/10/17 Time of Encounter: 07:25 - Assessment and plan (1) (HFpEF) heart failure with preserved ejection fraction Current Visit: Yes Status: Acute Assessment and plan: Per last echo 04/2016: EF 60%, would have repeat limited echo 11/2016 with aortic valve not well visualized. Probable difficulty with daily fluid and salt guidelines, he is unclear on recommended daily limits. Advised to keep LE elevated, he has wraps as well. Cont Lasix 40mg IV, monitoring renal function, will increase to BID. Consideration of VHD, aortic stenosis, with 3/6 AMINA on exam. 01/10 Net -3.7L since admission ASHOK anticipated later today (2) Aortic stenosis Current Visit: Yes Status: Suspected Assessment and plan: Unclear etiology, does have h/o HTN limited echo 11/2016 with aortic valve not well visualized. Lisinopril held, both for renal dysfunction as well as preserving afterload to perfuse coronary arteries. ASHOK anticipated later today Qualifiers: Cardiac valve disease etiology: etiology unspecified Qualified Code(s): I35.0 - Nonrheumatic aortic (valve) stenosis (3) COPD exacerbation Current Visit: Yes Status: Acute Assessment and plan: CXR with left basilar atelectasis, also unclear of contribution of CHF. Afebrile, no leukocytosis, will hold off on abx at this time. He does have daily prednisone 20mg PO QD, will increase to 40mg PO QD. 01/09 Added Levaquin monotherapy (4) Anemia Current Visit: Yes Status: Acute Assessment and plan: Macrocytic, will send for MMA, Folate studies. Start on Folate and B-12 supplements. Consideration of superimposed hemolytic anemia, ie Heyde syndrome with acquired von Willebrand deficiency from severe aortic stenosis. LDH wnl No signs of active bleed. Qualifiers: Anemia type: unspecified type Qualified Code(s): D64.9 - Anemia, unspecified (5) CKD (chronic kidney disease) stage 3, GFR 30-59 ml/min Current Visit: No Status: Chronic Assessment and plan: Steady, baseline SCr 1.4-1.5 Today SCr 1.5 Steady (6) CAD (coronary artery disease) Current Visit: Yes Status: Chronic Assessment and plan: Cont ASA Statin BB Qualifiers: Coronary Disease-Associated Artery/Lesion type: [place] artery [place] vs. transplanted heart: [place] heart Associated angina: without angina Qualified Code(s): I25.10 - Atherosclerotic heart disease of [place] coronary artery without angina pectoris (7) Troponin level elevated Current Visit: No Status: Resolved Assessment and plan: Adynamic with peak 0.10, in setting of HTN, CHF exacerbation, and aortic stenosis. (8) DVT prophylaxis Current Visit: No Status: Acute Assessment and plan: Hep 5000 U SC BID - Subjective Interval history: Pt seen/eval, lying supine 45% angle in bed comfortable. He denies chest pain, dyspnea, palpitations, nvd. Had givnes w/d last evening. - Constitutional Vitals: Temp Pulse Resp BP Pulse Ox 97.9 F 70 15 164/69 98 01/10/17 07:29 01/10/17 07:29 01/10/17 07:29 01/10/17 07:29 01/10/17 07:29 General appearance: Present: A&O X 3, answers questions appropriately - Head Head exam: Present: atraumatic, normocephalic - Eye Eye exam: Present: EOMI, sclera anicteric - ENT ENT exam: Present: mucous membranes moist - Neck Neck exam general surgery: Present: supple, trachea midline - Respiratory Respiratory exam: Present: decreased breath sounds (2* habitus), wheezes ( scattered). Absent: accessory muscle use, rhonchi - Cardiovascular Cardiovascular exam: Present: +S1, +S2. Absent: JVD - GI/Abdominal GI/Abdominal exam: Present: soft. Absent: tenderness - Extremities Exam Extremities exam: Present: warm, radial pulses palpable and symetrical Internal Medicine: Result - Labs CBC & Chem 7: 01/10/17 03:31 01/10/17 03:31 Labs: Short CBC 01/10/17 Range/Units 03:31 WBC 10.4 (4.3-11.1) K/mcL Hgb 10.2 L (12.9-16.9) g/dL Hct 32.5 L (37.5-50.1) % Plt Count 219 (140-400) K/mcL Neutrophils # 8.3 (1.6-8.9) K/mcL BMP 01/10/17 03:31 Sodium 139 Potassium 4.1 Chloride 96 L Carbon Dioxide 35 H BUN 33 H Creatinine 1.54 H Glucose 147 H Calcium 9.1 - ABG Interpretation ABG results: PT/INR, D-dimer PT 10.5 Seconds (9.4-12.1) 01/07/17 16:53 - VTE Documentation of Mechanical Device: Graduated compression elastic hosiery Consult Discharge Plan - Plan [facility]errals: [facility]Primary Care Provider[facility] - <Ganesh Headley - Last Filed: 01/10/17 18:44> Date of Encounter: 01/10/17 - Assessment and plan (1) Acute on chronic respiratory failure Current Visit: Yes Status: Acute Assessment and plan: Wean oxygen as able. Qualifiers: Respiratory failure complication: hypoxia Qualified Code(s): J96.21 - Acute and chronic respiratory failure with hypoxia (2) CHF exacerbation Current Visit: Yes Status: Suspected Assessment and plan: Continue diuresis as able. Qualifiers: Congestive heart failure type: diastolic Qualified Code(s): I50.33 - Acute on chronic diastolic (congestive) heart failure (3) THOMPSON (acute kidney injury) Current Visit: Yes Status: Acute (4) CKD (chronic kidney disease) stage 3, GFR 30-59 ml/min Current Visit: No Status: Chronic (5) CAD (coronary artery disease) Current Visit: Yes Status: Chronic Qualifiers: Coronary Disease-Associated Artery/Lesion type: [place] artery [place] vs. transplanted heart: [place] heart Associated angina: without angina Qualified Code(s): I25.10 - Atherosclerotic heart disease of [place] coronary artery without angina pectoris (6) Aortic stenosis Current Visit: Yes Status: Suspected Qualifiers: Cardiac valve disease etiology: etiology unspecified Qualified Code(s): I35.0 - Nonrheumatic aortic (valve) stenosis (7) Hypothyroidism Current Visit: No Status: Chronic Qualifiers: Hypothyroidism type: acquired Qualified Code(s): E03.9 - Hypothyroidism, unspecified (8) Non-insulin dependent type 2 diabetes mellitus Current Visit: Yes Status: Chronic - Constitutional Vitals: Temp Pulse Resp BP Pulse Ox 97.9 F 69 16 141/63 98 01/10/17 16:04 01/10/17 16:04 01/10/17 16:04 01/10/17 16:04 01/10/17 16:04 Internal Medicine: Result - Labs CBC & Chem 7: 01/10/17 03:31 01/10/17 03:31 Labs: Short CBC 01/10/17 Range/Units 03:31 WBC 10.4 (4.3-11.1) K/mcL Hgb 10.2 L (12.9-16.9) g/dL Hct 32.5 L (37.5-50.1) % Plt Count 219 (140-400) K/mcL Neutrophils # 8.3 (1.6-8.9) K/mcL BMP 01/10/17 03:31 Sodium 139 Potassium 4.1 Chloride 96 L Carbon Dioxide 35 H BUN 33 H Creatinine 1.54 H Glucose 147 H Calcium 9.1 - ABG Interpretation ABG results: PT/INR, D-dimer PT 10.5 Seconds (9.4-12.1) 01/07/17 16:53 - Attending Attestation I examined this patient and my medical decision-making was reviewed with the Resident Physician on 01/10/17. I agree with the documented findings, disposition and treatment plan as described except to the extent set forth below. Mr Baldwin is currently admitted for acute exac diastolic heart failure and COPD. He is moderate to high risk due to potential for worsening respiratory status. Mr. Baldwin is up in chair. He is doing somewhat better today. No CP. Less cough. No fever or chills. No GI symptoms. Exam Alert Comfortable Heart reg - distant Lungs with rhonchi and rales. Edema improving I/P 1. Hypoxia 2. CHF exac Further diagnoses and plan as above.
[2017-01-10] MEDS: Gabapentin 100 MG CAPSULE PO SCH ×3 (09:00→20:17)
[2017-01-10] MEDS ORDERED: *HR* Morphine 2 MG/ML SYRINGE IVP ONE (09:07)
[2017-01-10] MEDS: predniSONE 20 MG TABLET PO SCH (11:56)
[2017-01-10] MEDS: Multivit/Ca/Min/Fe/FA 1 TAB TABLET PO SCH (11:56)
[2017-01-10] MEDS: Aspirin 81 MG TAB.CHEW PO SCH (11:56)
[2017-01-10] MEDS: levoFLOXacin 500 MG TABLET PO SCH (11:56)
[2017-01-10] MEDS: Magnesium Oxide 400 MG TABLET PO SCH (11:56)
[2017-01-10] MEDS: Isosorbide MONOnitrate (24 HR) 30 MG TAB.ER.24H PO SCH (11:56)
[2017-01-10] MEDS: Renal Vitamin 1 MG CAPSULE PO SCH (11:56)
--- NOTE | 2017-01-10 13:59 | Cardiology Consult Note ---
Date of Encounter: 01/10/17 Time of Encounter: 13:53 Assessment and Plan (1) Aortic stenosis Current Visit: Yes Status: Suspected Echocardiogram from 04/2016 and 09/[address] Azul. No evidence of aortic stenosis seen. Valve not well visualized so mild aortic stenosis cannot be ruled out but definitely no evidence of severe valvular disease. No murmur appreciated on my exam. No indication for ASHOK at this time. Consider other cause for recurrent edema and SOB. Pt has CKD and COPD. Qualifiers: Cardiac valve disease etiology: etiology unspecified Qualified Code(s): I35.0 - Nonrheumatic aortic (valve) stenosis (2) Troponin level elevated Current Visit: No Status: Resolved Mild troponin elevation, 0.12, 0.09, 0.10, in setting of THOMPSON/CKD. He denies chest pain. No further testing indicated. (3) CHF exacerbation Current Visit: Yes Status: Suspected Pt diagnosed with CHFpEF previously. LE edema likely chronic. Last TTE reviewed. EF 55-60% and mild diastolic dysfunction. BNP only 108. CXR showed atelectasis, no pulmonary edema or effusions. Consider other cause of symptoms. Again no indication to assess aortic valve further. No aortic stenosis seen. Low sodium diet and keeping legs elevated discussed. Call with questions. Qualifiers: Congestive heart failure type: diastolic Qualified Code(s): I50.33 - Acute on chronic diastolic (congestive) heart failure Discussion w patient/family: The assessment and plan as outlined above was discussed with the patient and/or family members who expressed understanding and agreement. All questions were answered. Thank you for involving us in the care of your patient. Please call with any questions. History of Present Illness Consult date: 01/10/17 Requesting physician: Ganesh Headley Consult reason: CHF, Evaluate for valvular heart disease. Chief complaint: SOB and BLE edema History of present illness: Mr. Baldwin is a 86 year old male with a history of COPD on home O2, diastolic CHF , DM type II, HTN, HLD, and CKD stage III who presents with increasing SOB and BLE edema. He was admitted for diastolic CHF. He reports recurrent problems over the past year with previous hospitalizations. He also has multiple skin tears d/t his BLE edema. Most recent TTE 04/2016 demonstrated EF 60%, mild diastolic dysfunction, mildly dilated LA. The aortic valve appeared to be moderately calcified in area of the non-coronary. Not well visualized. Cardiology consulted for evaluation for need to further evaluate aortic valve with ASHOK in patient with recurrent heart failure symptoms and murmur. Reports undergoing LHC several years ago in [place] was normal. He denies chest pain. Past Med Surg Social Fam HX - Past Medical History Medical history: arthritis, CHF, COPD, diabetes, GERD, hyperlipidemia, hypertension, myocardial infarction, renal disease, thyroid disease, syncope, valvular heart disease, other Psychiatric history: no psych history, other - Past Surgical History Surgical History: other - Social History Smoking Status: Former smoker Smokeless Tobacco Status: No Alcohol use: occasionally Drug use: none - Family History Mother Family Member Ethnicity: Non- Living Status: Hx Family Cardiac Disorders: No Hx Family Respiratory Disorders: No Hx Family Cancer: No Hx Family GI Disorders: No Hx Family Endocrine Disorder: Yes (DM2) Hx Family Neuromuscular Disorders: No Hx Family Neurologic Disorders: No Hx Family HEENT Disorders: No Hx Family Autoimmune Disorders: No Medications and Allergies Gabapentin [Neurontin] 100 mg PO TID 03/15/16 [History] GlipiZIDE [Glucotrol] 2.5 mg PO BIDWM 03/15/16 [History] Isosorbide MONOnitrate (24 HR) [Imdur] 30 mg PO DAILY 03/15/16 [History] Omeprazole [PriLOSEC] 20 mg PO BIDAC 03/15/16 [History] Tamsulosin [Flomax] 0.4 mg PO HS capsule 04/15/16 [Rx] Acetaminophen [Tylenol] 975 mg PO TID PRN 12/03/16 [History] Ferrous Gluconate 324 mg PO DAILY 12/03/16 [History] Magnesium Oxide [Magnesium] 400 mg PO DAILY 12/03/16 [History] Multivitamin [Multivitamins] 1 cap PO DAILY 12/03/16 [History] Polyethylene Glycol 3350 [Smoothlax] 17 gm PO BID PRN 12/03/16 [History] Atenolol [Tenormin] 50 mg PO HS 12/20/16 [History] Levothyroxine [Synthroid] 50 mcg PO QAM 12/20/16 [History] Lisinopril [Zestril] 20 mg PO DAILY 12/20/16 [History] PredniSONE 20 mg PO DAILY 12/20/16 [History] Atorvastatin [Lipitor] 10 mg PO HS 01/07/17 [History] Carbamide Peroxide [Ear Drops] 15 ml BOTH EARS DAILY 01/07/17 [History] Guaifenesin [Tussin] 300 mg PO TID PRN 01/07/17 [History] Lidocaine 1 appl TP TID PRN 01/07/17 [History] Loperamide [Imodium] 4 mg PO Q6H PRN 01/07/17 [History] Oxycodone HCl [Oxaydo] 5 mg PO Q8H PRN 01/07/17 [History] Torsemide [Demadex] 20 mg PO BID 01/07/17 [History] Allergies hydrochlorothiazide Allergy (Verified 12/20/16 21:33) See Comments All Systems Review: A 10-system review of systems was performed and is negative for pertinent findings except as documented above in the HPI. Physical Examination Vital Signs, Last 4 Hours Temp Pulse Resp BP Pulse Ox 01/10/17 11:32 97.9 F 65 16 150/59 99 General: Conversant, No Apparent Distress HEENT: Atraumatic, Normocephaly, Mucus Membranes Moist Neck: No JVD, Normal carotid pulses Cardiac: Reg Rate and Rhythm, Normal S1 and S2, No Murmur Lungs: Normal Breath Sounds, No Wheeze, Rales, Rhonchi Neuro: Alert and responsive, No focal deficits noted Abdomen: Soft, Non-Tender Skin: No rashes noted on visualized skin Musculoskeletal: No Chest Wall Tenderness Extremities: No Clubbing, No Cyanosis, Normal Pulses, Other (2+ ankle edema, BLE with multiple scars. ) Results 01/10/17 03:31 01/10/17 03:31 Lab Results 01/10/17 01/10/17 03:31 03:31 WBC 10.4 Hgb 10.2 L Hct 32.5 L Plt Count 219 Sodium 139 Potassium 4.1 Chloride 96 L Carbon Dioxide 35 H BUN 33 H Creatinine 1.54 H Glucose 147 H Calcium 9.1 Magnesium 1.9 - Imaging and Cardiology Echo: report reviewed - EKG Interpretation EKG results cardiology: personally reviewed Consult Discharge Plan - Plan [facility]errals: [facility] [Primary Care Provider] -
[2017-01-10] MEDS ORDERED: Furosemide 40 MG/4 ML VIAL IVP ONE (15:32)
[2017-01-10] MEDS: *HR* OxyCODONE Immed Rel 5 MG TABLET PO PRN (16:52)
[2017-01-11] MEDS: *HR* OxyCODONE Immed Rel 5 MG TABLET PO PRN (01:52)
[2017-01-11 05:02] LABS: Basophils % 0.1 %; Eosinophils % 0.3 %; Hematocrit 29.8 % (37.5-50.1); Hemoglobin 9.9 g/dL (12.9-16.9); Immature Granulocytes % 0.9 % (0-4); Lymphocytes # 1.1 K/mcL (0.6-4.6); Mean Corpuscular HGB Conc 33.2 g/dL (31.6-35.5); Mean Corpuscular Hemoglobin 32.8 pg (28.0-33.3); Mean Corpuscular Volume 98.7 fL (83.0-100.0); Mean Platelet Volume 10.9 fL (9.4-12.4); Monocytes # 0.8 K/mcL (0.0-1.3); Monocytes % 8.3 %; Neutrophils # 7.9 K/mcL (1.6-8.9); Platelet Count 200 K/mcL (140-400); Red Blood Count 3.02 M/mcL (4.19-5.50); Red Cell Distribution Width 12.5 % (11.5-14.5); Segmented Neutrophils % 79.4 %
[2017-01-11 05:19] LABS: BUN/Creatinine Ratio 26 (6-26); Blood Urea Nitrogen 29 mg/dL (8-26); Calcium 8.8 mg/dL (8.6-10.8); Carbon Dioxide 32 mEq/L (19-29); Chloride 99 mEq/L (98-109); Glucose 115 mg/dL (70-99); Osmolality,Calculated 293 (280-300); Potassium 4.5 mEq/L (3.5-4.5); Sodium 138 mEq/L (136-145); eGFR For African Americans > 60 (> 60); eGFR For Non-African Americans > 60 (> 60)
[2017-01-11] MEDS: *HR* Heparin 5,000 UNIT/ML VIAL SQ SCH (06:13)
[2017-01-11 07:30] VITALS: BP 121/75
[2017-01-11] MEDS: Insulin LISPRO 300 UNITS/3 ML VIAL SQ SCH ×2 (08:43→12:15)
[2017-01-11] MEDS: Aspirin 81 MG TAB.CHEW PO SCH (08:45)
[2017-01-11] MEDS: Multivit/Ca/Min/Fe/FA 1 TAB TABLET PO SCH (08:45)
[2017-01-11] MEDS: Renal Vitamin 1 MG CAPSULE PO SCH (08:45)
[2017-01-11] MEDS: Gabapentin 100 MG CAPSULE PO SCH (08:45)
[2017-01-11] MEDS: predniSONE 20 MG TABLET PO SCH (08:45)
[2017-01-11] MEDS: levoFLOXacin 500 MG TABLET PO SCH (08:45)
[2017-01-11] MEDS ORDERED: Furosemide 40 MG TABLET PO SCH (08:45)
[2017-01-11] MEDS: Isosorbide MONOnitrate (24 HR) 30 MG TAB.ER.24H PO SCH (08:45)
[2017-01-11] MEDS: Lidocaine OINT 35.44 GM TUBE TP PRN (08:46)
[2017-01-11] MEDS: Magnesium Oxide 400 MG TABLET PO SCH (08:46)
--- NOTE | 2017-01-11 08:51 | Internal Med Progress Note ---
Date of Encounter: 01/11/17 Time of Encounter: 08:00 - Assessment and plan (1) (HFpEF) heart failure with preserved ejection fraction Current Visit: Yes Status: Acute Assessment and plan: Per last echo 04/2016: EF 60%, would have repeat limited echo 11/2016 with aortic valve not well visualized. Probable difficulty with daily fluid and salt guidelines, he is unclear on recommended daily limits. Advised to keep LE elevated, he has wraps as well. Cont Lasix 40mg IV, monitoring renal function, will increase to BID. Consideration of VHD, aortic stenosis, with 3/6 AMINA on exam. 01/11 Net -3.5L since admission Appreciate cardiology recs, patient aortic stenosis does not warrant ASHOK (2) Aortic stenosis Current Visit: Yes Status: Suspected Assessment and plan: Unclear etiology, does have h/o HTN limited echo 11/2016 with aortic valve not well visualized. Lisinopril held, both for renal dysfunction as well as preserving afterload to perfuse coronary arteries. Per above. Qualifiers: Cardiac valve disease etiology: etiology unspecified Qualified Code(s): I35.0 - Nonrheumatic aortic (valve) stenosis (3) COPD exacerbation Current Visit: Yes Status: Acute Assessment and plan: CXR with left basilar atelectasis, also unclear of contribution of CHF. Afebrile, no leukocytosis, will hold off on abx at this time. He does have daily prednisone 20mg PO QD, will increase to 40mg PO QD. 01/09 Added Levaquin monotherapy Cont Prednisone therapy and levaquin for 3 more days. (4) Anemia Current Visit: Yes Status: Acute Assessment and plan: Macrocytic, will send for MMA, Folate studies. Start on Folate and B-12 supplements. LDH wnl No signs of active bleed. Qualifiers: Anemia type: unspecified type Qualified Code(s): D64.9 - Anemia, unspecified (5) CKD (chronic kidney disease) stage 3, GFR 30-59 ml/min Current Visit: No Status: Chronic Assessment and plan: Steady, baseline SCr 1.4-1.5 Today SCr 1.0 Likely component of dilution, will resume Lasix 40mg PO BID (he was previously taking torsemide) (6) CAD (coronary artery disease) Current Visit: Yes Status: Chronic Assessment and plan: Cont ASA Statin BB Qualifiers: Coronary Disease-Associated Artery/Lesion type: [place] artery [place] vs. transplanted heart: [place] heart Associated angina: without angina Qualified Code(s): I25.10 - Atherosclerotic heart disease of [place] coronary artery without angina pectoris (7) DVT prophylaxis Current Visit: No Status: Acute Assessment and plan: Hep 5000 U SC BID - Subjective Interval history: Pt seen/eval, denies chest pain, dyspnea, palpitations, nvd. Eating breakfast - Constitutional Vitals: Temp Pulse Resp BP Pulse Ox 98.3 F 63 16 121/75 96 01/11/17 07:23 01/11/17 07:23 01/11/17 07:23 01/11/17 07:23 01/11/17 07:23 General appearance: Present: A&O X 3, answers questions appropriately - Head Head exam: Present: atraumatic, normocephalic - Eye Eye exam: Present: EOMI, sclera anicteric - ENT ENT exam: Present: mucous membranes moist - Neck Neck exam general surgery: Present: supple, trachea midline - Respiratory Respiratory exam: Present: decreased breath sounds (2* habitus), rhonchi (scant) , wheezes (mild end exp) - Cardiovascular Cardiovascular exam: Present: +S1, +S2, systolic murmur (AMINA c/w A-S). Absent: JVD - GI/Abdominal GI/Abdominal exam: Present: soft, no peritoneal signs. Absent: tenderness - Extremities Exam Extremities exam: Present: warm, radial pulses palpable and symetrical. Absent : pedal edema - Neurological Exam Neurological exam: Present: strengths equal and symetr throughout Internal Medicine: Result - Labs CBC & Chem 7: 01/11/17 04:48 01/11/17 04:48 Labs: Short CBC 01/11/17 Range/Units 04:48 WBC 10.0 (4.3-11.1) K/mcL Hgb 9.9 L (12.9-16.9) g/dL Hct 29.8 L (37.5-50.1) % Plt Count 200 (140-400) K/mcL Neutrophils # 7.9 (1.6-8.9) K/mcL BMP 01/11/17 04:48 Sodium 138 Potassium 4.5 Chloride 99 Carbon Dioxide 32 H BUN 29 H Creatinine 1.11 Glucose 115 H Calcium 8.8 - ABG Interpretation ABG results: PT/INR, D-dimer PT 10.5 Seconds (9.4-12.1) 01/07/17 16:53 - VTE Documentation of Mechanical Device: Graduated compression elastic hosiery Consult Discharge Plan - Plan Referrals: [facility] [Primary Care Provider] -
--- NOTE | 2017-01-11 11:08 | Discharge Summary ---
<Marv Cloud - Last Filed: 01/11/17 10:51> Date of Encounter: 01/11/17 Time of Encounter: 09:00 - Discharge Diagnosis (1) (HFpEF) heart failure with preserved ejection fraction Priority: Primary Status: Acute (2) Aortic stenosis Priority: Primary Status: Suspected Qualifiers: Cardiac valve disease etiology: etiology unspecified Qualified Code(s): I35.0 - Nonrheumatic aortic (valve) stenosis (3) COPD exacerbation Priority: Primary Status: Acute (4) Anemia Priority: Secondary Status: Acute Qualifiers: Anemia type: unspecified type Qualified Code(s): D64.9 - Anemia, unspecified (5) CKD (chronic kidney disease) stage 3, GFR 30-59 ml/min Priority: Secondary Status: Chronic (6) CAD (coronary artery disease) Priority: Secondary Status: Chronic Qualifiers: Coronary Disease-Associated Artery/Lesion type: [place] artery [place] vs. transplanted heart: [place] heart Associated angina: without angina Qualified Code(s): I25.10 - Atherosclerotic heart disease of [place] coronary artery without angina pectoris (7) DVT prophylaxis Priority: Secondary Status: Acute - Discharge Medications Prescriptions: OxyCODONE Immed Rel [Roxicodone 5 MG] 5 mg PO Q8HR PRN #12 tablet PRN Reason: Pain Levofloxacin [Levaquin] 500 mg PO DAILY #3 tablet PredniSONE 40 mg PO DAILY #6 tablet Renal Vitamin [Renal Caps Softgel] 1 mg PO DAILY #20 capsule Home Medications: Gabapentin [Neurontin] 100 mg PO TID 03/15/16 [History] GlipiZIDE [Glucotrol] 2.5 mg PO BIDWM 03/15/16 [History] Isosorbide MONOnitrate (24 HR) [Imdur] 30 mg PO DAILY 03/15/16 [History] Omeprazole [PriLOSEC] 20 mg PO BIDAC 03/15/16 [History] Tamsulosin [Flomax] 0.4 mg PO HS capsule 04/15/16 [Rx] Acetaminophen [Tylenol] 975 mg PO TID PRN 12/03/16 [History] Ferrous Gluconate 324 mg PO DAILY 12/03/16 [History] Magnesium Oxide [Magnesium] 400 mg PO DAILY 12/03/16 [History] Multivitamin [Multivitamins] 1 cap PO DAILY 12/03/16 [History] Polyethylene Glycol 3350 [Smoothlax] 17 gm PO BID PRN 12/03/16 [History] Atenolol [Tenormin] 50 mg PO HS 12/20/16 [History] Levothyroxine [Synthroid] 50 mcg PO QAM 12/20/16 [History] Lisinopril [Zestril] 20 mg PO DAILY 12/20/16 [History] PredniSONE 20 mg PO DAILY 12/20/16 [History] Atorvastatin [Lipitor] 10 mg PO HS 01/07/17 [History] Carbamide Peroxide [Ear Drops] 15 ml BOTH EARS DAILY 01/07/17 [History] Guaifenesin [Tussin] 300 mg PO TID PRN 01/07/17 [History] Lidocaine 1 appl TP TID PRN 01/07/17 [History] Loperamide [Imodium] 4 mg PO Q6H PRN 01/07/17 [History] Oxycodone HCl [Oxaydo] 5 mg PO Q8H PRN 01/07/17 [History] Torsemide [Demadex] 20 mg PO BID 01/07/17 [History] Levofloxacin [Levaquin] 500 mg PO DAILY #3 tablet 01/11/17 [Rx] OxyCODONE Immed Rel [Roxicodone 5 MG] 5 mg PO Q8HR PRN #12 tablet 01/11/17 [Rx] PredniSONE 40 mg PO DAILY #6 tablet 01/11/17 [Rx] Renal Vitamin [Renal Caps Softgel] 1 mg PO DAILY #20 capsule 01/11/17 [Rx] Allergies/Adverse Reactions: Allergies hydrochlorothiazide Allergy (Verified 12/20/16 21:33) See Comments Date of admission: 01/07/17 18:28 [facility] Consults: 01/07/17 21:33 Consult to Category Director [CONS] Routine Reason for SW Consult: patient lives in assisted living facility [facility] 01/08/17 09:46 Consult to Occupational Therapy [CONS] Routine Comment: Evaluate, develop and implement POC Consult to Physical Therapy [CONS] Routine Comment: Evaluate, develop and implement POC 01/10/17 09:06 Consult to Cardiology [CONS] Routine Comment: Consulting Provider: Cardiology Jolie Reason for Consult: symptomatic aortic stenosis with HFpEF. Dr. Headley d/w Dr. Shane. Time Notified: 09:06 Call Completed: Yes Discharging clinician: Wesley Quinteros Anticipated date of discharge: 01/11/17 - Patient Status Disposition: Home Health Service Condition: Fair Functional capacity at discharge: independent ambulation Overall status at discharge: patient is progressing back to baseline - Discharge Instructions Instructions: Oxycodone/Acetaminophen (By mouth), Prednisone (By mouth), Levofloxacin (By mouth), Acute Kidney Injury (DC), Community-acquired Pneumonia (DC) [facility]: [facility] [Primary Care Provider] - Forms: ED Satisfaction Letter - Diet and Activity Activity: increase activity as tolerated Diet: low fat, low cholesterol, low salt diet Hospital course: Mr. Baldwin is a 86 year old male Patient would present to [facility] with chief concern: short of breath, with fluid overload suggesting CHF exacerbation. Comorbidities include: CHF, COPD, coronary artery disease, diabetes, GERD, hyperlipidemia, hypertension, myocardial infarction, renal disease, thyroid disease, syncope, valvular heart disease Hospital course: Patient would undergo treatment with judicious diuresis and monitoring of I/Os. Fluid restrict 1.8 L daily, elevated LE. Net negative 3.6 L since admission with improvement of symptoms. Would endorse coughing with some sputum production suggesting COPD, started on empiric antibiotics with improvement. consult for placement, was from [facility]. Imaging studies disclosed: Chest X-Ray 01/07/17 16:25 IMPRESSION: Left base atelectasis. Cardiology consult regarding aortic stenosis. Per Cardiology, On exam, he has a 2/6 early peaking AMINA at the RUSB. I reviewed his prior echos, and while they are of limited quality, there is no evidence of significant . I do not recommend a ASHOK at this time. Noted prior UA with many squamous epithelial cells per LPF, repeat urine to send to cytology, f/u with [facility]. At time of discharge, patient was clinically improved, hemodynamically stable, progressing to baseline, and agreeable with plan of care. Patient was advised to seek immediate medical attention for any new or worsening symptoms including but not limited to fever, chills, chest pain, chest pressure, dyspnea, cough, abdominal pain, nausea, vomiting, diarrhea, bloody stool, urine and the patient voiced understanding. Patient will follow-up with primary care physician: [facility] Finish 3 more days of prednisone 40mg daily, levaquin 500mg daily. 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 - Time Spent with Patient Total time spent providing and/or coordinating discharge services: Greater than 30 minutes - Constitutional Vitals: Temp Pulse Resp BP Pulse Ox 98.3 F 63 16 121/75 96 01/11/17 07:23 01/11/17 07:23 01/11/17 07:23 01/11/17 07:23 01/11/17 07:23 General appearance: Present: A&O X 3, answers questions appropriately - Head Head exam: Present: atraumatic, normocephalic - Eye Eye exam: Present: EOMI, sclera anicteric - ENT ENT exam: Present: mucous membranes moist - Neck Neck exam general surgery: Present: supple, trachea midline - Respiratory Respiratory exam: Present: rhonchi (scant). Absent: wheezes - Cardiovascular Cardiovascular exam: Present: +S1, +S2, systolic murmur (c/w A-S). Absent: JVD - GI/Abdominal GI/Abdominal exam: Present: soft, no peritoneal signs. Absent: tenderness - Extremities Exam Extremities exam: Present: pedal edema (mild to bilateral lower ankles, has wraps in place), warm, radial pulses palpable and symetrical - VTE Documentation of Mechanical Device: Graduated compression elastic hosiery <Wesley Quinteros P - Last Filed: 01/11/17 18:28> Date of Encounter: 01/11/17 Date of admission: 01/07/17 18:28 [facility] Consults: 01/07/17 21:33 Consult to Category Director [CONS] Routine Reason for SW Consult: patient lives in assisted living facility [facility] 01/08/17 09:46 Consult to Occupational Therapy [CONS] Routine Comment: Evaluate, develop and implement POC Consult to Physical Therapy [CONS] Routine Comment: Evaluate, develop and implement POC 01/10/17 09:06 Consult to Cardiology [CONS] Routine Comment: Consulting Provider: Cardiology Jolie Reason for Consult: symptomatic aortic stenosis with HFpEF. Dr. Headley d/w Dr. Shane. Time Notified: 09:06 Call Completed: Yes Hospital course: Mr. Baldwin is a 86 year old male - Time Spent with Patient Total time spent providing and/or coordinating discharge services: - Constitutional Vitals: Temp Pulse Resp BP Pulse Ox 98.3 F 63 16 121/75 96 01/11/17 07:23 01/11/17 07:23 01/11/17 07:23 01/11/17 07:23 01/11/17 07:23 - Attending Attestation I examined this patient and my medical decision-making was reviewed with the CLEARING SUPERVISOR/PA/Advanced Practice Nurse/Resident Physician. I agree with the documented findings, disposition and treatment plan as described except to the extent set forth below.
--- NOTE | 2017-01-11 11:25 | Physician Discharge Referral ---
<Marv Cloud - Last Filed: 01/11/17 11:23> Home Health/Hosp Referral Info Transfer to: Home Health Attending Provider: Dr. Wesley Quinteros Provider in Charge Post Discharge: PCP - Diagnosis (1) (HFpEF) heart failure with preserved ejection fraction Priority: Primary Status: Acute (2) Aortic stenosis Priority: Secondary Status: Suspected (3) COPD exacerbation Priority: Primary Status: Acute (4) Anemia Priority: Secondary Status: Chronic (5) CKD (chronic kidney disease) stage 3, GFR 30-59 ml/min Priority: Secondary Status: Chronic (6) CAD (coronary artery disease) Priority: Secondary Status: Chronic (7) DVT prophylaxis Priority: Secondary Status: Acute - Respiratory Orders Oxygen / L per min (2) Smoking Cessation: Smoking cessation has been advised. For more information, call the [place] Mobile Quit Line at 0-693-LNKA-NOW. - Diet/Nutrition Diet/Nutrition Orders: No Added Salt (DONY), Cardiac - Activity Activity Orders: Up ad autumn, Ambulate - Services Needed Following services are medically necessary services: Home Health Aide, Physical Therapy, Occupational Therapy - Transfer Medications Prescriptions: OxyCODONE Immed Rel [Roxicodone 5 MG] 5 mg PO Q8HR PRN #12 tablet PRN Reason: Pain Levofloxacin [Levaquin] 500 mg PO DAILY #3 tablet PredniSONE 40 mg PO DAILY #6 tablet Renal Vitamin [Renal Caps Softgel] 1 mg PO DAILY #20 capsule Home Medications: Gabapentin [Neurontin] 100 mg PO TID 03/15/16 [History] GlipiZIDE [Glucotrol] 2.5 mg PO BIDWM 03/15/16 [History] Isosorbide MONOnitrate (24 HR) [Imdur] 30 mg PO DAILY 03/15/16 [History] Omeprazole [PriLOSEC] 20 mg PO BIDAC 03/15/16 [History] Tamsulosin [Flomax] 0.4 mg PO HS capsule 04/15/16 [Rx] Acetaminophen [Tylenol] 975 mg PO TID PRN 12/03/16 [History] Ferrous Gluconate 324 mg PO DAILY 12/03/16 [History] Magnesium Oxide [Magnesium] 400 mg PO DAILY 12/03/16 [History] Multivitamin [Multivitamins] 1 cap PO DAILY 12/03/16 [History] Polyethylene Glycol 3350 [Smoothlax] 17 gm PO BID PRN 12/03/16 [History] Atenolol [Tenormin] 50 mg PO HS 12/20/16 [History] Levothyroxine [Synthroid] 50 mcg PO QAM 12/20/16 [History] Lisinopril [Zestril] 20 mg PO DAILY 12/20/16 [History] PredniSONE 20 mg PO DAILY 12/20/16 [History] Atorvastatin [Lipitor] 10 mg PO HS 01/07/17 [History] Carbamide Peroxide [Ear Drops] 15 ml BOTH EARS DAILY 01/07/17 [History] Guaifenesin [Tussin] 300 mg PO TID PRN 01/07/17 [History] Lidocaine 1 appl TP TID PRN 01/07/17 [History] Loperamide [Imodium] 4 mg PO Q6H PRN 01/07/17 [History] Oxycodone HCl [Oxaydo] 5 mg PO Q8H PRN 01/07/17 [History] Torsemide [Demadex] 20 mg PO BID 01/07/17 [History] Levofloxacin [Levaquin] 500 mg PO DAILY #3 tablet 01/11/17 [Rx] OxyCODONE Immed Rel [Roxicodone 5 MG] 5 mg PO Q8HR PRN #12 tablet 01/11/17 [Rx] PredniSONE 40 mg PO DAILY #6 tablet 01/11/17 [Rx] Renal Vitamin [Renal Caps Softgel] 1 mg PO DAILY #20 capsule 01/11/17 [Rx] Allergies/Adverse Reactions: Allergies hydrochlorothiazide Allergy (Verified 12/20/16 21:33) See Comments Certification: Further, I certify that my clinical findings support that this patient is homebound (i.e. absences from home require considerable and taxing effort and are for medical reasons or sikh services or infrequently or short duration when for other reasons) because: Homebound Reason: Patient requires assistance of a person or device to safely leave home, Absences from home are contraindicated except to recieve medical care, Post-surgery restriction and or conditions limit ability to leave home, Leaving home requires considerable and taxing effort due to condition, Altered mental status requiring supervision when leaving home, Severity of cardiac or pulmonary status limits activity tolerance Attestation: My signature below is to certify that this patient is under my care and that I, or nurse practitioner, or a physician's assistant attorney general working with me, has a face-to -face encounter with this patient. <Wesley Quinteros P - Last Filed: 01/11/17 18:29> - Respiratory Orders Smoking Cessation: Smoking cessation has been advised. For more information, call the [place] Tobacco Quit Line at 9-316-RZOT-NOW. Certification: Further, I certify that my clinical findings support that this patient is homebound (i.e. absences from home require considerable and taxing effort and are for medical reasons or sikh services or infrequently or short duration when for other reasons) because: Attestation: My signature below is to certify that this patient is under my care and that I, or nurse practitioner, or a physician's assistant attorney general working with me, has a face-to -face encounter with this patient.
== END 2017-01-11 13:31 | disposition home health service (06) | DRG 291 ==
LOC: 2NENU 16:23 → EMEROO 16:23 → SUATTDRO 18:28 → 2NENU 19:45
PROVIDERS: ADMIT Hospitalist; ATTEND Internal Medicine